=== PATIENT | male | born 1930 | race Caucasian/White ===

== ENCOUNTER 2017-11-27 13:43 | Inpatient (IN) | payer OTHER ==
[2017-11-27 13:54] VITALS: BP 115/59; PULSE 104; TEMP 97.9; BMI 21.9
[2017-11-27] MEDS ORDERED: methylPREDNISolone NA SUCC 125 MG/2 ML VIAL IVPUSH ONE (14:21)
--- NOTE | 2017-11-27 14:27 | PDOC ---
History of Present Illness - General History Source: Patient - History of Present Illness Associated Symptoms: reports: cough, shortness of breath. denies: chest pain/ soreness <Mis AshbyBaileyKaty - Last Filed: 11/27/17 16:15> <Jackelyn Boucher - Last Filed: 11/27/17 19:15> - General Chief Complaint: Shortness of Breath Stated Complaint: SOB Time Seen by Provider: 11/27/17 14:14 Past History - Past Medical History Asthma: Yes Cancer: Yes COPD: Yes Diabetes: Yes - Suicide/Smoking/Psychosocial Hx Smoking History: Current every day smoker Have you smoked in the past 12 months: Yes Number of Cigarettes Smoked Daily: 30 Information on smoking cessation initiated: No Hx Alcohol Use: No Drug/Substance Use Hx: No Substance Use Type: None Hx Substance Use Treatment: No <Mis AshbyBaileyKaty - Last Filed: 11/27/17 16:15> <Jackelyn Boucher - Last Filed: 11/27/17 19:15> - Past Medical History Allergies/Adverse Reactions: Allergies Allergy/AdvReac Type Severity Reaction Status Date / Time No Known Allergies Allergy Verified 11/27/17 13:55 Home Medications: Ambulatory Orders Aspirin [Aspirin EC] 81 mg PO DAILY 11/27/17 Diltiazem HCl [Cartia Xt] 120 mg PO DAILY 11/27/17 Montelukast Sodium [Singulair] 10 mg PO DAILY 11/27/17 Tamsulosin HCl 0.4 mg PO DAILY 11/27/17 Review of Systems - Review of Systems Constitutional: No: Chills, Fever Respiratory: Yes: Cough, Shortness of Breath Cardiac (ROS): No: Chest Pain, Lightheadedness, Palpitations, Syncope <Mis AshbyBaileyKaty - Last Filed: 11/27/17 16:15> *Physical Exam - Vital Signs Last Vital Signs Temp Pulse Resp BP Pulse Ox 97.9 F 104 H 24 115/59 97 11/27/17 13:48 11/27/17 13:48 11/27/17 13:48 11/27/17 13:48 11/27/17 13:48 - Physical Exam General Appearance: Yes: Appropriately Dressed. No: Apparent Distress HEENT: positive: Normal Voice Neck: positive: Supple. negative: Lymphadenopathy (R), Lymphadenopathy (L) Respiratory/Chest: positive: Wheezing (diffusely) Cardiovascular: positive: S1, S2, Tachycardia Gastrointestinal/Abdominal: positive: Soft. negative: Tender Extremity: negative: Pedal Edema Integumentary: positive: Dry, Warm Neurologic: positive: Fully Oriented, Alert, Normal Mood/Affect <Debora Ashby - Last Filed: 11/27/17 16:15> - Vital Signs Last Vital Signs Temp Pulse Resp BP Pulse Ox 97.9 F 104 H 24 115/59 97 11/27/17 13:48 11/27/17 13:48 11/27/17 13:48 11/27/17 13:48 11/27/17 13:48 <Jackelyn Boucher - Last Filed: 11/27/17 19:15> ED Treatment Course - LABORATORY CBC & Chemistry Diagram: 11/27/17 14:40 11/27/17 14:40 - RADIOLOGY Radiology Studies Ordered: Category Date Time Status CHEST PA & LAT [RAD] Stat Radiology 11/27/17 14:21 Ordered <Mis AshbyBaileyKaty - Last Filed: 11/27/17 16:15> - LABORATORY CBC & Chemistry Diagram: 11/27/17 14:40 11/27/17 14:40 - ADDITIONAL ORDERS Additional order review: Laboratory Results 11/27/17 11/27/17 11/27/17 14:40 14:40 14:40 Sodium 137 Potassium 4.2 Chloride 100 Carbon Dioxide 32 Anion Gap 5 L BUN 15 Creatinine 0.6 L Creat Clearance w eGFR > 60 Random Glucose 126 H Calcium 8.2 L Total Bilirubin 0.4 AST 16 D ALT 22 Alkaline Phosphatase 124 H Creatine Kinase 150 Creatine Kinase Index 2.8 CK-MB (CK-2) 4.297 H Troponin I < 0.02 B-Natriuretic Peptide 132.01 Total Protein 7.4 Albumin 3.7 11/27/17 14:40 RBC 4.62 MCV 69.0 L MCHC 30.2 L RDW 18.5 H D MPV 7.1 L Neutrophils % 69.6 Lymphocytes % 18.4 D Monocytes % 8.8 Eosinophils % 2.7 D Basophils % 0.5 D - Medications Given in the ED: ED Medications Discontinued Medications Generic Name Dose Route Start Last Admin Trade Name Freq PRN Reason Stop Dose Admin Albuterol/Ipratropium 1 amp 11/27/17 14:30 11/27/17 15:19 Duoneb - NEB 11/27/17 15:16 1 amp Q15M SALVADOR Administration Azithromycin 500 mg 11/27/17 15:42 11/27/17 15:50 Zithromax - PO 11/27/17 15:43 500 mg ONCE ONE Administration Ceftriaxone Sodium 1 mg 11/27/17 16:13 11/27/17 16:30 Rocephin - IVPUSH 11/27/17 16:14 Not Given ONCE ONE Ceftriaxone Sodium 1 gm/ 100 mls @ 200 mls/hr 11/27/17 16:18 11/27/17 16:30 Dextrose IVPB 11/27/17 16:47 200 mls/hr ONCE ONE Administration Methylprednisolone Sodium Succinate 125 mg 11/27/17 14:21 11/27/17 14:59 Solu-Medrol - IVPUSH 11/27/17 14:22 125 mg ONCE ONE Administration <Jackelyn Boucher - Last Filed: 11/27/17 19:15> Medical Decision Making - Medical Decision Making 11/27/17 14:22 87-year-old male, current smoker, bladder cancer, COPD, not on oxygen, known stable lung nodules, hypertension and diabetes, brought in by for worsening shortness of breath. As per , patient has had difficulty breathing for 3 months with possible fatigue. Was seen by his primary doctor > 2 months ago who wanted pt admitted but pt refused at that time. Presents today because shortness of breath worsened 3 days ago and not improving with several pumps at home. Patient complains of cough which is appears chronic and mostly dry, no fever, chills or CP. Possible recent unexplained weight loss per . Patient denies any chest pain See exam COPD flare, less likely ACS, PE or dissection -nebs -pred -cxr -ekg -labs -anticipate admission 11/27/17 14:28 11/27/17 14:29 11/27/17 16:15 Chest x-ray read as left basilar consolidation. Case discussed with Dr. Dhillon , patient's PMD, who is requesting that Dr. Orellana of pulmonary be consulted. Blood cultures and antibiotics in progress. Patient admitted <Debora Ashby - Last Filed: 11/27/17 16:15> *DC/Admit/Observation/Transfer - Discharge Dispostion Admit: Yes <Debora Ashby - Last Filed: 11/27/17 16:15> - Attestations Physician Attestion: I reviewed the case with the mid-level practitioner and agree with the mid- level practitioner's assessment, diagnosis and disposition. <Jackelyn Boucher - Last Filed: 11/27/17 19:15> Diagnosis at time of Disposition: COPD exacerbation Pneumonia Qualifiers: Pneumonia type: due to unspecified organism Laterality: left Lung location: unspecified part of lung Qualified Code(s): J18.9 - Pneumonia, unspecified organism - Discharge Dispostion Condition at time of disposition: Fair
[2017-11-27] MEDS ORDERED: ALBUTEROL SO4 2.5/IPRATROPIUM 0.5 INH SOL 3 ML VIAL.NEB. NEB ONE ×2 (14:47→15:00)
[2017-11-27] MEDS ORDERED: methylPREDNISolone NA SUCC 125 MG/2 ML VIAL ONE (14:47)
[2017-11-27 14:52] LABS: EOS % 2.7 % (0-4.5); HEMOGLOBIN 9.6 GM/dL (11.7-16.9); MCHC 30.2 g/dl (32.0-35.9); PLATELET COUNT 297 K/MM3 (134-434)
[2017-11-27] MEDS: ALBUTEROL SO4 2.5/IPRATROPIUM 0.5 INH SOL 3 ML VIAL.NEB. NEB SCH ×3 (14:59→15:19)
[2017-11-27 15:10] LABS: BASO % 0.5 % (0-2.0); HEMATOCRIT 31.8 % (35.4-49); LYMPH % 18.4 % (8-40); MCH 20.8 pg (25.7-33.7); MEAN PLT VOLUME 7.1 fl (7.5-11.1); MONO % 8.8 % (3.8-10.2); NEUT % 69.6 % (42.8-82.8); RBC 4.62 M/mm3 (4.00-5.60); RDW 18.5 % (11.9-15.9); WHITE BLOOD COUNT 9.3 K/mm3 (4.0-10.0)
[2017-11-27 15:14] LABS: ALBUMIN 3.7 g/dl (3.4-5.0); ALK PHOS 124 U/L (45-117); ANION GAP 5 (8-16); BILIRUBIN,TOTAL 0.4 mg/dL (0.2-1.0); BLOOD UREA NITROGEN 15 mg/dL (7-18); CALCIUM 8.2 mg/dL (8.5-10.1); CHLORIDE 100 mmol/L (98-107); CO2 32 mmol/L (21-32); CREATININE 0.6 mg/dL (0.7-1.3); GLUCOSE,RANDOM 126 mg/dL (74-106); POTASSIUM 4.2 mmol/L (3.5-5.1); SGOT/AST 16 U/L (15-37); SGPT/ALT 22 U/L (12-78); SODIUM 137 mmol/L (136-145); TOT PROT 7.4 g/dl (6.4-8.2)
[2017-11-27] MEDS ORDERED: AZITHROMYCIN 250 MG TABLET PO ONE (15:42)
[2017-11-27] MEDS ORDERED: AZITHROMYCIN 500 MG TABLET ONE (15:48)
[2017-11-27] MEDS ORDERED: CEFTRIAXONE 1 GM in DEXTROSE 5%-WATER - 100 ML IVPB ONE (16:18)
[2017-11-27] MEDS ORDERED: CEFTRIAXONE 1 GM/50 ML BAG ONE (16:25)
[2017-11-27] MEDS ORDERED: methylPREDNISolone NA SUCC 40 MG/1 ML VIAL IVPUSH SCH (21:00)
[2017-11-27] MEDS ORDERED: MONTELUKAST NA 10 MG TABLET PO SCH (22:00)
--- NOTE | 2017-11-27 23:06 | EKG ---
Test Reason : Blood Pressure : / mmHG Vent. Rate : 098 BPM Atrial Rate : 098 BPM P-R Int : 132 ms QRS Dur : 126 ms QT Int : 376 ms P-R-T Axes : 065 080 046 degrees QTc Int : 480 ms NORMAL SINUS RHYTHM RIGHT BUNDLE BRANCH BLOCK CANNOT RULE OUT INFERIOR INFARCT (CITED ON OR BEFORE 15-JAN-2015) ABNORMAL ECG WHEN COMPARED WITH ECG OF 18-JAN-2015 09:13, NO SIGNIFICANT CHANGE WAS FOUND Confirmed by WADE PADILLA MD ([id number]) on 11/27/2017 11:05:50 PM Referred By: Confirmed By:WADE PADILLA MD
[2017-11-28] MEDS ORDERED: INSULIN SLIDING SCALE (NOVOLOG) 1 VIAL SQ SCH (07:00)
[2017-11-28] MEDS ORDERED: ASPIRIN COATED 81 MG TABLET.EC PO SCH (10:00)
[2017-11-28] MEDS ORDERED: TAMSULOSIN HCL 0.4 MG CAP.ER.24H (FP) PO SCH (10:00)
[2017-11-28] MEDS ORDERED: AZITHROMYCIN IVPB 500 MG in DEXTROSE 5%-WATER - 250 ML IVPB SCH (10:00)
[2017-11-28] MEDS ORDERED: CEFTRIAXONE 1 G/50 ML PREMIX 50 ML IVPB SCH (10:00)
[2017-11-28 10:48] LABS: HEMATOCRIT 31.8 % (35.4-49); HEMOGLOBIN 9.7 GM/dL (11.7-16.9); MCH 20.9 pg (25.7-33.7); MCHC 30.4 g/dl (32.0-35.9); MEAN CELL VOLUME 68.8 fl (80-96); PLATELET COUNT 290 K/MM3 (134-434); RBC 4.62 M/mm3 (4.00-5.60); RDW 18.2 % (11.9-15.9); WHITE BLOOD COUNT 8.7 K/mm3 (4.0-10.0)
[2017-11-28 11:35] LABS: CHLORIDE 101 mmol/L (98-107); POTASSIUM 4.5 mmol/L (3.5-5.1); SODIUM 138 mmol/L (136-145)
[2017-11-28 12:44] LABS: ANION GAP 9 (8-16); BLOOD UREA NITROGEN 24 mg/dL (7-18); CALCIUM 8.9 mg/dL (8.5-10.1); CO2 28 mmol/L (21-32); CREATININE 0.7 mg/dL (0.7-1.3); GLUCOSE,RANDOM 175 mg/dL (74-106)
[2017-11-29 08:07] LABS: SERUM IRON SATURATION 3 % (15-55); TOTAL IRON BINDING CAPACITY 501 ug/dL (250-450); UIBC 484 ug/dL (111-343)
== END 2017-11-27 20:30 | disposition left against medical advice (07) | DRG 190 ==
LOC: JER 13:43 → JERBED 16:14
PROVIDERS: ADMIT Specialist; ATTEND Specialist
DX: J44.0 Chronic obstructive pulmonary disease with (acute) lower respiratory infection (principal); J18.8 Other pneumonia, unspecified organism; E11.9 Type 2 diabetes mellitus without complications; J44.1 Chronic obstructive pulmonary disease with (acute) exacerbation; F17.200 Nicotine dependence, unspecified, uncomplicated
CPT/HCPCS: 36415; 71045-TC-FY; 80048; 80053; 82550; 82553; 82607; 82746; 83540; 83550; 83880; 84439; 84443; 84484; 85025; 85027; 87040; 93005; 93010; 99282-25

== ENCOUNTER 2017-11-28 08:42 | Inpatient (IN) | payer OTHER ==
--- NOTE | 2017-11-28 09:21 | PDOC ---
History of Present Illness - General History Source: Patient Exam Limitations: No Limitations - History of Present Illness Initial Comments: 11/28/17 10:34 The patient is a 87-year-old male with a significant past medical history of COPD (not on home O2), HTN, DM, asthma, bladder CA, heavy tobacco use, and a history of respiratory arrest, and presents to the emergency department with shortness of breath for 6-7 months. Patient was seen in this ED yesterday for the same complaint and was planned for admission. However, the patient reports he walked out AMA and did not stay in the hospital. Patient states his shortness of breath has worsened over the last 2 months. He states he cannot walk very far without being short of breath. The patient denies chest pain, leg swelling, headache and dizziness. The patient denies fever, chills, nausea, vomit, diarrhea and constipation. The patient denies dysuria, frequency, urgency and hematuria. Allergies: NKDA Past Surgical History: stomach ulcer surgery Social History: Current everyday smoker, no other toxic habits reported PCP: Dr. Junior Chief Contract Officer: Dr. Rothman <Kathy Krishnan - Last Filed: 11/28/17 10:34> <Diann Ventura - Last Filed: 11/28/17 14:05> - General Chief Complaint: Shortness of Breath Stated Complaint: REVISIT, PAIN Time Seen by Provider: 11/28/17 09:21 Past History <Kathy Krishnan - Last Filed: 11/28/17 10:34> - Past Medical History Asthma: Yes Cancer: Yes COPD: Yes (EMPHYSEMA) Diabetes: No (LOW BL.SUGAR) - Surgical History Abdominal Surgery: Yes (STOMACH ULCER) - Suicide/Smoking/Psychosocial Hx Smoking History: Current every day smoker Have you smoked in the past 12 months: Yes Number of Cigarettes Smoked Daily: 30 Information on smoking cessation initiated: Yes 'Breaking Loose' booklet given: 11/28/17 Hx Alcohol Use: No Drug/Substance Use Hx: No Substance Use Type: None Hx Substance Use Treatment: No <Diann Ventura - Last Filed: 11/28/17 14:05> - Past Medical History Allergies/Adverse Reactions: Allergies Allergy/AdvReac Type Severity Reaction Status Date / Time No Known Allergies Allergy Verified 11/28/17 08:44 Home Medications: Ambulatory Orders Aspirin [Aspirin EC] 81 mg PO DAILY 11/27/17 Diltiazem HCl [Cartia Xt] 120 mg PO DAILY 11/27/17 Montelukast Sodium [Singulair] 10 mg PO DAILY 11/27/17 Tamsulosin HCl 0.4 mg PO DAILY 11/27/17 Review of Systems - Review of Systems Able to Perform ROS?: Yes Comments:: 11/28/17 10:34 GENERAL/CONSTITUTIONAL: No: fever, chills, weakness, loss of appetite. HEAD, EYES, EARS, NOSE AND THROAT: No: change in vision, ear pain, discharge, sore throat, throat swelling. CARDIOVASCULAR: No: chest pain, lightheadedness, palpitations, syncope RESPIRATORY: (+) Shortness of breath. No: cough, wheezing, hemoptysis, stridor. GASTROINTESTINAL: No: nausea, vomiting, abdominal cramping, diarrhea, rectal bleeding, constipation. GENITOURINARY: No: dysuria, hematuria, frequency, urgency, flank pain. MUSCULOSKELETAL: No: back pain, neck pain, joint pain, muscle swelling or pain SKIN: No: lesions, pallor, rash or easy bruising. NEUROLOGIC: No: headache, vertigo, paresthesias, weakness ENDOCRINE: No: unexplained weight gain or loss HEMATOLOGIC/LYMPHATIC: No: anemia, easy bleeding, swelling nodes <Krishnan,Kathy - Last Filed: 11/28/17 10:34> *Physical Exam - Vital Signs Last Vital Signs Temp Pulse Resp BP Pulse Ox 97.7 F 113 H 22 122/63 96 11/28/17 08:44 11/28/17 08:44 11/28/17 08:44 11/28/17 08:44 11/28/17 08:44 - Physical Exam Comments: 11/28/17 10:34 GENERAL: The patient is in no acute distress. HEAD: Normal with no signs of trauma. EYES: PERRLA, EOMI, sclera anicteric, conjunctiva clear. ENT: Ears normal, nares patent, oropharynx clear without exudates. Moist mucous membranes. NECK: Normal range of motion, supple without lymphadenopathy, JVD, or masses. LUNGS: (+) Expiratory and inspiratory wheezes throughout. No crackles. HEART:Regular rate and rhythm, normal S1 and S2 without murmur, rub or gallop. ABDOMEN: Soft, nontender, normoactive bowel sounds. No guarding, no rebound. EXTREMITIES: Normal range of motion, no LE edema. No clubbing or cyanosis. No erythema, or tenderness. NEUROLOGICAL: Cranial nerves II through XII grossly intact. Normal speech. No focal neurological deficits. MUSCULOSKELETAL: Back nontender to palpation, no CVA tenderness SKIN: Warm, Dry, normal turgor, no rashes or lesions noted. <Kathy Krishnan - Last Filed: 11/28/17 10:34> - Vital Signs Last Vital Signs Temp Pulse Resp BP Pulse Ox 97.7 F 113 H 22 122/63 96 11/28/17 08:44 11/28/17 08:44 11/28/17 08:44 11/28/17 08:44 11/28/17 08:44 <Diann Ventura - Last Filed: 11/28/17 14:05> ED Treatment Course - LABORATORY CBC & Chemistry Diagram: 11/28/17 10:19 11/28/17 10:19 - ADDITIONAL ORDERS Additional order review: Laboratory Results 11/28/17 09:55 VBG pH 7.38 POC VBG pCO2 46.7 POC VBG pO2 37.1 Mixed VBG HCO3 26.8 H <Kathy Krishnan - Last Filed: 11/28/17 10:34> - LABORATORY CBC & Chemistry Diagram: 11/28/17 10:19 11/28/17 10:19 <Diann Ventura - Last Filed: 11/28/17 14:05> Medical Decision Making - Medical Decision Making 11/28/17 10:22 This is an 87-year-old male with a history of hypertension, severe COPD, continued tobacco use who was seen in the emergency department yesterday for shortness of breath. This patient was admitted by his primary care physician. This patient ultimately left AGAINST MEDICAL ADVICE. Emergency Department today with a complaint of shortness of breath. No fevers at home. Patient states he is dyspneic on exertion. He denies chest pain. He has noted a cough Patient's x-ray from yesterday demonstrates left lower lobe pneumonia. Examination currently demonstrates inspiratory and expiratory wheezing, consistent with COPD exacerbation 11/28/17 10:23 Patient seen in the emergency department by Dr. Vivek Junior Will admit to service. Clinical impression: pneumonia, initial presentation COPD exacerbation, initial presentation 11/28/17 14:05 EKG: Sinus tachycardia, rate of 113 bpm, right axis deviation, right bundle branch block <Diann Ventura - Last Filed: 11/28/17 14:05> *DC/Admit/Observation/Transfer - Attestations Scribe Attestion: 11/28/17 10:35 Documentation prepared by Kathy Krishnan, acting as medical anthropologist for Diann Ventura MD/DO. <Kathy Krishnan - Last Filed: 11/28/17 10:34> - Discharge Dispostion Admit: Yes <Diann Ventura - Last Filed: 11/28/17 14:05> Diagnosis at time of Disposition: COPD exacerbation Pneumonia Qualifiers: Pneumonia type: due to unspecified organism Laterality: left Lung location: lower lobe of lung Qualified Code(s): J18.1 - Lobar pneumonia, unspecified organism - Discharge Dispostion Condition at time of disposition: Stable
[2017-11-28 10:26] LABS: BASO % 0.1 % (0-2.0); HEMATOCRIT 31.6 % (35.4-49); HEMOGLOBIN 9.6 GM/dL (11.7-16.9); LYMPH % 10.4 % (8-40); MCH 20.8 pg (25.7-33.7); MCHC 30.3 g/dl (32.0-35.9); MEAN CELL VOLUME 68.8 fl (80-96); MEAN PLT VOLUME 7.1 fl (7.5-11.1); MONO % 5.4 % (3.8-10.2); NEUT % 84.1 % (42.8-82.8); PLATELET COUNT 289 K/MM3 (134-434); RBC 4.59 M/mm3 (4.00-5.60); RDW 18.4 % (11.9-15.9); WHITE BLOOD COUNT 7.9 K/mm3 (4.0-10.0)
[2017-11-28 10:28] LABS: VENOUS PC02 46.7 mmHg (38-52); VENOUS PH 7.38 (7.32-7.42); VENOUS PO2 37.1 mmHg (28-48)
[2017-11-28 11:02] LABS: INR 1.05 (0.82-1.09); PROTHROMBIN TIME (PATIENT) 11.9 SEC (9.98-11.88)
[2017-11-28 11:05] LABS: ACTIVATED PTT 29.5 SECONDS (26.9-34.4)
[2017-11-28 11:17] VITALS: BMI 20.3
[2017-11-28 11:31] LABS: ALBUMIN 3.5 g/dl (3.4-5.0); ANION GAP 8 (8-16); BLOOD UREA NITROGEN 24 mg/dL (7-18); CALCIUM 8.8 mg/dL (8.5-10.1); CHLORIDE 101 mmol/L (98-107); CO2 29 mmol/L (21-32); CREATININE 0.8 mg/dL (0.7-1.3); GLUCOSE,RANDOM 177 mg/dL (74-106); POTASSIUM 4.6 mmol/L (3.5-5.1); SGOT/AST 12 U/L (15-37); SGPT/ALT 20 U/L (12-78); SODIUM 138 mmol/L (136-145)
[2017-11-28 11:35] LABS: ALK PHOS 112 U/L (45-117); BILIRUBIN,TOTAL 0.4 mg/dL (0.2-1.0); TOT PROT 7.2 g/dl (6.4-8.2)
[2017-11-28 11:36] LABS: URINE APPEARANCE CLEAR; URINE COLOR RED
[2017-11-28 11:37] LABS: URINE BILIRUBIN NEGATIVE (NEGATIVE); URINE BLOOD NEGATIVE (NEGATIVE); URINE GLUCOSE (UA) 2+ (NEGATIVE); URINE KETONE NEGATIVE (NEGATIVE); URINE LEUK ESTERASE NEGATIVE (NEGATIVE); URINE NITRITE NEGATIVE (NEGATIVE); URINE PROTEIN NEGATIVE (NEGATIVE)
--- NOTE | 2017-11-28 11:43 | CON.PULM ---
Consult Consult Specialty:: Pulm Referred by:: Dr. Junior Reason for Consultation:: COPD exacerbation, weight loss - History of Present Illness Chief Complaint: SOB History of Present Illness: 87 year old M with pmh of bladder CA, COPD (not on home O2), lung nodules (last CT 08/2017), HTN, DM, and current everyday smoker (2 ppd x 60 yrs) presented with worsening SOB, difficulty breathing x 3 months. Pt saw PCP 2 months ago who recommended admission, but patient refused. Patient came to the ED yesterday with 3 day hx of sob without any improvement and cough with yellow sputum x 2 months. Patient endorses 60 lb weight loss over since last year (185 to 120). Patient left AMA and returned today. Patient denies fever, chills, chest pain, wheezing, hemoptysis, leg swelling. - History Source History Provided By: Patient Limitations to Obtaining History: No Limitations - Past Medical History Cardio/Vascular: Yes: HTN, Other (ASHD/SMOKER) Pulmonary: Yes: COPD Renal/: Yes: Cancer (bladder cancer- transitional cell), Other (PAST PROSTATE CA) Endocrine: Yes: Diabetes Mellitus - Alcohol/Substance Use Hx Alcohol Use: No - Smoking History Smoking history: Current every day smoker Have you smoked in the past 12 months: Yes Aproximately how many cigarettes per day: 30 (2 ppd) <Zay Reed - Last Filed: 11/28/17 15:03> Home Medications <Zay Reed - Last Filed: 11/28/17 15:03> <Marito Weldon - Last Filed: 11/28/17 15:16> - Allergies Allergies/Adverse Reactions: Allergies Allergy/AdvReac Type Severity Reaction Status Date / Time No Known Allergies Allergy Verified 11/28/17 08:44 - Home Medications Home Medications: Ambulatory Orders Aspirin [Aspirin EC] 81 mg PO DAILY 11/27/17 Diltiazem HCl [Cartia Xt] 120 mg PO DAILY 11/27/17 Montelukast Sodium [Singulair] 10 mg PO DAILY 11/27/17 Tamsulosin HCl 0.4 mg PO DAILY 11/27/17 Review of Systems - Review of Systems Constitutional: reports: No Symptoms Eyes: reports: No Symptoms HENT: reports: No Symptoms Cardiovascular: reports: No Symptoms Respiratory: reports: Cough (with yellow sputum), SOB. denies: Hemoptysis, Wheezing Gastrointestinal: reports: No Symptoms Musculoskeletal: reports: No Symptoms Neurological: reports: No Symptoms Psychiatric: reports: No Symptoms <Zay Reed - Last Filed: 11/28/17 15:03> Physical Exam Vital Sings: Vital Signs Temperature 97.7 F 11/28/17 08:44 Pulse Rate 103 H 11/28/17 10:30 Respiratory Rate 18 11/28/17 10:30 Blood Pressure 120/64 11/28/17 10:30 O2 Sat by Pulse Oximetry (%) 100 11/28/17 10:30 Constitutional: Yes: No Distress, Calm, Thin Eyes: Yes: WNL, Conjunctiva Clear, EOM Intact HENT: Yes: WNL, Atraumatic, Normocephalic Neck: Yes: Supple, Trachea Midline, Lymphadenopathy (Right cervical) Cardiovascular: Yes: WNL, Tachycardia, S1, S2 Respiratory: Yes: Cough, Poor Air Entry, SOB, Wheezes (Diffuse bilaterally) ...Breath Sounds: LIANE Wheezes, LIANE Diminished, LLL Wheezes, LLL Diminished, RUL Wheezes, RUL Diminished, RML Wheezes, RML Diminished Gastrointestinal: Yes: WNL, Normal Bowel Sounds, Soft. No: Splenomegaly, Tenderness Edema: No Neurological: Yes: WNL, Alert, Oriented Labs: CBC, [facility] 11/28/17 10:19 11/28/17 10:19 <Zay Reed - Last Filed: 11/28/17 15:03> Vital Sings: Vital Signs Temperature 97.7 F 11/28/17 08:44 Pulse Rate 103 H 11/28/17 10:30 Respiratory Rate 18 11/28/17 10:30 Blood Pressure 120/64 11/28/17 10:30 O2 Sat by Pulse Oximetry (%) 100 11/28/17 10:30 Labs: CBC, [facility] 11/28/17 10:19 11/28/17 10:19 <Marito Weldon - Last Filed: 11/28/17 15:16> Assessment/Plan 87 year old M with pmh of bladder CA, COPD (not on home O2), lung nodules (last CT 08/2017), HTN, DM, and current everyday smoker (2 ppd x 60 yrs) presented with worsening SOB, difficulty breathing x 3 months. #COPD exacerbation with L basilar consolidation/atelectasis -IV steroids [Solumederol 40 mg q6h] -Antibiotics [Ceftriaxone/Azithromycin], recommend low threshold to stop abx -Bronchodilators [Recommend albuterol q4 prn and duonebs edgar tid] -O2 as needed -Sputum CX <Zay Reed - Last Filed: 11/28/17 15:03> IMP: AE of COPD Acute on chronic bronchitis Multiple Pulmonary nodules: the largest being 6 mm in the LIANE that has remained essentially unchanged since February 2016 IV Medrol BD TX O2 as needed to maintain saturation VTE prophylaxis No indication for CT as the most recent was August 2016 Low threshold to stop all ABX (Zmax for now) as does not appear to be PNA or bacterial infection Work up fpr significant weight loss suggested Vaccination Will follow Thank you. Dr Weldon <Marito Weldon - Last Filed: 11/28/17 15:16>
[2017-11-28] MEDS ORDERED: CEFTRIAXONE 1 GM/50 ML BAG ONE (12:40)
[2017-11-28] MEDS ORDERED: methylPREDNISolone NA SUCC 40 MG/1 ML VIAL ONE (12:41)
[2017-11-28] MEDS: methylPREDNISolone NA SUCC 40 MG/1 ML VIAL IVPUSH SCH ×3 (12:45→21:35)
[2017-11-28] MEDS: CEFTRIAXONE 1 G/50 ML PREMIX 50 ML IVPB SCH (12:48)
--- NOTE | 2017-11-28 14:07 | EKG ---
Test Reason : Blood Pressure : / mmHG Vent. Rate : 113 BPM Atrial Rate : 113 BPM P-R Int : 134 ms QRS Dur : 122 ms QT Int : 366 ms P-R-T Axes : 088 086 069 degrees QTc Int : 502 ms SINUS TACHYCARDIA POSSIBLE LEFT ATRIAL ENLARGEMENT RIGHT BUNDLE BRANCH BLOCK CANNOT RULE OUT INFERIOR INFARCT (CITED ON OR BEFORE 15-JAN-2015) ABNORMAL ECG WHEN COMPARED WITH ECG OF 27-NOV-2017 15:27, NO SIGNIFICANT CHANGE WAS FOUND Confirmed by MD Ju, Ken ([id number]) on 11/28/2017 2:07:35 PM Referred By: Confirmed By:Ken Dodd MD
[2017-11-28] MEDS: AZITHROMYCIN IVPB 500 MG in DEXTROSE 5%-WATER - 250 ML IVPB SCH (14:21)
--- NOTE | 2017-11-28 14:28 | HP ---
Admitting History and Physical - Primary Care Physician PCP: Vivek Junior - Admission Chief Complaint: SOB History of Present Illness: Pt with Hx/o COPD, current smoker, with LEARY for couple of months (seen in the office, with his son at bed side, referred to ER but pt refused) now came to ER for worsening of his condition, walking only few steps before gasping for air. Pt came to ER yesterday, was admitted for PNA and acute COPD exacerbation, but pt left AMA last night. History Source: Patient Limitations to Obtaining History: No Limitations - Past Medical History Cardiovascular: Yes: CAD, HTN Pulmonary: Yes: COPD Renal/: Yes: Cancer (bladder cancer- transitional cell), Other (PAST PROSTATE CA) Endocrine: Yes: Diabetes Mellitus (diet controlled) - Smoking History Smoking history: Current every day smoker (he started smoking before 17 years of age; he smoked for years over 2 packs) Have you smoked in the past 12 months: Yes Aproximately how many cigarettes per day: 30 - Alcohol/Substance Use Hx Alcohol Use: No Home Medications - Allergies Allergies/Adverse Reactions: Allergies Allergy/AdvReac Type Severity Reaction Status Date / Time No Known Allergies Allergy Verified 11/28/17 08:44 - Home Medications Home Medications: Ambulatory Orders Aspirin [Aspirin EC] 81 mg PO DAILY 11/27/17 Diltiazem HCl [Cartia Xt] 120 mg PO DAILY 11/27/17 Montelukast Sodium [Singulair] 10 mg PO DAILY 11/27/17 Tamsulosin HCl 0.4 mg PO DAILY 11/27/17 Review of Systems - Review of Systems Constitutional: denies: Chills, Fever, Night Sweats Eyes: denies: Double Vision, Eye Pain, Recent Change in Vision HENT: denies: Difficult Swallowing, Ear Discharge, Throat Pain Neck: denies: Pain on Movement, Tenderness Cardiovascular: denies: Chest Pain, Edema, Palpitations Respiratory: reports: Cough, SOB on Exertion, Wheezing Gastrointestinal: denies: Abdominal Pain, Constipation, Nausea Genitourinary: reports: Frequency. denies: Burning, Discharge Musculoskeletal: denies: Back Pain, Joint Swelling Integumentary: denies: Eczema, Pruritis, Rash Neurological: denies: Change in LOC, Change in Speech, Numbness Endocrine: denies: Excessive Sweating, Intolerance to Cold Hematology/Lymphatic: denies: Easily Bruised, Excessive Bleeding Psychiatric: denies: Anxiety, Depression Physical Examination Vital Signs: Vital Signs Temperature 97.7 F 11/28/17 08:44 Pulse Rate 103 H 11/28/17 10:30 Respiratory Rate 18 11/28/17 10:30 Blood Pressure 120/64 11/28/17 10:30 O2 Sat by Pulse Oximetry (%) 100 11/28/17 10:30 Constitutional: Yes: No Distress, Calm Eyes: Yes: Conjunctiva Clear, EOM Intact HENT: Yes: Normocephalic. No: Nasal Congestion Neck: Yes: Trachea Midline. No: Lymphadenopathy, Tenderness Cardiovascular: Yes: Regular Rate and Rhythm, S1, S2 Respiratory: Yes: Regular, Rhonchi Gastrointestinal: Yes: Normal Bowel Sounds, Soft. No: Tenderness Renal/: No: CVA Tenderness - Left, CVA Tenderness - Right Musculoskeletal: No: Joint Stiffness, Joint Swelling Extremities: Yes: Cold, Cool Edema: No Integumentary: No: Bruising, Rash Neurological: Yes: Alert, Oriented, Other (symmetric sensorty and motor examinationin UE/ LE/ face) Psychiatric: Yes: Alert, Oriented. No: Agitated Labs: CBC, BMP 11/28/17 10:19 11/28/17 10:19 Imaging - Results Chest X-ray: Report Reviewed Problem List - Problems (1) Pneumonia Code(s): J18.9 - PNEUMONIA, UNSPECIFIED ORGANISM Qualifiers: Pneumonia type: due to unspecified organism Laterality: left Lung location: lower lobe of lung Qualified Code(s): J18.1 - Lobar pneumonia, unspecified organism (2) Acute exacerbation of chronic obstructive pulmonary disease (COPD) Code(s): J44.1 - CHRONIC OBSTRUCTIVE PULMONARY DISEASE W (ACUTE) EXACERBATION (3) DM2 (diabetes mellitus, type 2) Code(s): E11.9 - TYPE 2 DIABETES MELLITUS WITHOUT COMPLICATIONS (4) HTN (hypertension) Code(s): I10 - ESSENTIAL (PRIMARY) HYPERTENSION Assessment/Plan IV abtx IV steroids Pulmonary consult AM labs
[2017-11-28] MEDS ORDERED: ALBUTEROL SO4 2.5/IPRATROPIUM 0.5 INH SOL 3 ML VIAL.NEB. NEB PRN (14:34)
[2017-11-28] MEDS ORDERED: ACETAMINOPHEN 325 MG TABLET (FP) PO PRN (14:35)
[2017-11-28] MEDS ORDERED: ALBUTEROL SO4 0.083% IH SOL 2.5 MG/3 ML VIAL.NEB. NEB PRN (15:03)
[2017-11-28] MEDS ORDERED: INSULIN (NOVOLOG) ASPART 100 UNITS/ML 10ML VIAL ONE (16:32)
[2017-11-28] MEDS: INSULIN SLIDING SCALE (NOVOLOG) 1 VIAL SQ SCH (16:38)
[2017-11-28] MEDS: NICOTINE 21 MG/24 HOURS TOPICAL PATCH TD SCH (18:45)
[2017-11-28] MEDS: ALBUTEROL SO4 2.5/IPRATROPIUM 0.5 INH SOL 3 ML VIAL.NEB. NEB SCH (19:50)
[2017-11-28] MEDS: NICOTINE POLACRILEX 4 MG GUM BUC PRN ×2 (19:56→22:00)
[2017-11-28] MEDS: MONTELUKAST NA 10 MG TABLET PO SCH (21:36)
[2017-11-29] MEDS ORDERED: PT OWN MED DRAWER 7, Y5N ONE ×4 (01:50→22:55)
[2017-11-29] MEDS: NICOTINE POLACRILEX 4 MG GUM BUC PRN ×3 (01:51→13:02)
[2017-11-29] MEDS: methylPREDNISolone NA SUCC 40 MG/1 ML VIAL IVPUSH SCH ×4 (03:02→21:31)
[2017-11-29] MEDS: INSULIN SLIDING SCALE (NOVOLOG) 1 VIAL SQ SCH ×2 (06:56→17:41)
[2017-11-29] MEDS ORDERED: INSULIN (NOVOLOG) ASPART 100 UNITS/ML 10ML VIAL ONE (07:07)
[2017-11-29 07:32] LABS: HEMATOCRIT 28.4 % (35.4-49); HEMOGLOBIN 8.7 GM/dL (11.7-16.9); MCH 20.7 pg (25.7-33.7); MCHC 30.5 g/dl (32.0-35.9); MEAN CELL VOLUME 67.9 fl (80-96); MEAN PLT VOLUME 7.2 fl (7.5-11.1); PLATELET COUNT 274 K/MM3 (134-434); RBC 4.19 M/mm3 (4.00-5.60); RDW 17.8 % (11.9-15.9); WHITE BLOOD COUNT 10.8 K/mm3 (4.0-10.0)
[2017-11-29] MEDS: ALBUTEROL SO4 2.5/IPRATROPIUM 0.5 INH SOL 3 ML VIAL.NEB. NEB SCH ×3 (07:40→20:47)
[2017-11-29 07:56] LABS: ANION GAP 9 (8-16); BLOOD UREA NITROGEN 28 mg/dL (7-18); CALCIUM 8.7 mg/dL (8.5-10.1); CHLORIDE 100 mmol/L (98-107); CO2 30 mmol/L (21-32); GLUCOSE,RANDOM 213 mg/dL (74-106); POTASSIUM 4.3 mmol/L (3.5-5.1); SODIUM 139 mmol/L (136-145)
[2017-11-29 09:28] LABS: CREATININE 0.7 mg/dL (0.7-1.3)
[2017-11-29] MEDS: NICOTINE 21 MG/24 HOURS TOPICAL PATCH TD SCH (09:58)
[2017-11-29] MEDS: CEFTRIAXONE 1 G/50 ML PREMIX 50 ML IVPB SCH (09:59)
[2017-11-29] MEDS: TAMSULOSIN HCL 0.4 MG CAP.ER.24H (FP) PO SCH (10:00)
[2017-11-29] MEDS: ASPIRIN COATED 81 MG TABLET.EC PO SCH (10:00)
[2017-11-29] MEDS: AZITHROMYCIN IVPB 500 MG in DEXTROSE 5%-WATER - 250 ML IVPB SCH (11:28)
--- NOTE | 2017-11-29 11:28 | PN ---
Progress Note, Physician Chief Complaint: in bed awake alert NAD VSS afebrile still some cough and SOB - Current Medication List Current Medications: Active Medications Acetaminophen (Tylenol -) 650 mg PO Q6H PRN PRN Reason: PAIN LEVEL 4 - 6 Albuterol Sulfate (Ventolin 0.083% Nebulizer Soln -) 1 amp NEB Q4H PRN PRN Reason: SHORT OF BREATH/WHEEZING Last Admin: 11/29/17 05:20 Dose: 1 amp Albuterol/Ipratropium (Duoneb -) 1 amp NEB RTID [facility] Last Admin: 11/29/17 07:40 Dose: 1 amp Aspirin (Ecotrin -) 81 mg PO DAILY [facility] Last Admin: 11/29/17 10:00 Dose: 81 mg Diltiazem HCl (Cardizem Cd -) 120 mg PO DAILY [facility] Last Admin: 11/29/17 10:00 Dose: 120 mg Azithromycin 500 mg/ Dextrose 250 mls @ 250 mls/hr IVPB DAILY [facility] Last Admin: 11/28/17 14:21 Dose: 250 mls/hr CEFTRIAXONE 1 G/50 ML PREMIX (Ceftriaxone 1 Gm-D5w Bag) 50 mls @ 100 mls/hr IVPB DAILY [facility] Last Admin: 11/29/17 09:59 Dose: 100 mls/hr Insulin Aspart (Novolog Vial Sliding Scale -) 1 vial SQ BID@0700,1630 [facility] PRN Reason: Protocol Last Admin: 11/29/17 06:56 Dose: 4 units Methylprednisolone Sodium Succinate (Solu-Medrol -) 40 mg IVPUSH Q6H-IV [facility] Last Admin: 11/29/17 10:00 Dose: 40 mg Montelukast Sodium (Singulair -) 10 mg PO HS [facility] Last Admin: 11/28/17 21:36 Dose: 10 mg Nicotine (Nicoderm Patch -) 21 mg TD DAILY [facility] Last Admin: 11/29/17 09:58 Dose: 21 mg Nicotine Polacrilex (Nicorette Gum -) 4 mg BUC Q2H PRN PRN Reason: NICOTINE REPLACEMENT RX Last Admin: 11/29/17 05:20 Dose: 4 mg Tamsulosin HCl (Flomax -) 0.4 mg PO DAILY@0830 [facility] Last Admin: 11/29/17 10:00 Dose: 0.4 mg - Objective Vital Signs: Vital Signs Temperature 98.7 F 02/14/18 09:20 Pulse Rate 104 H 11/29/17 09:20 Respiratory Rate 18 11/29/17 09:20 Blood Pressure 111/57 11/29/17 09:20 O2 Sat by Pulse Oximetry (%) 100 11/28/17 21:00 Constitutional: Yes: No Distress, Calm Eyes: Yes: Conjunctiva Clear HENT: Yes: Atraumatic Neck: Yes: Supple Cardiovascular: Yes: Regular Rate and Rhythm Respiratory: Yes: Cough, SOB Gastrointestinal: Yes: Soft. No: Distention, Tenderness Genitourinary: No: CVA Tenderness - Left, CVA Tenderness - Right, Hematuria Musculoskeletal: No: Joint Stiffness, Joint Swelling Extremities: No: Cold, Cool, Cyanosis Edema: No Integumentary: No: Rash, Skin Tear Neurological: Yes: WNL, Alert, Oriented ...Motor Strength: WNL Psychiatric: Yes: WNL, Alert, Oriented. No: Agitated, Suicidal Ideation Labs: CBC, BMP 11/29/17 06:00 11/29/17 06:00 INR, PTT INR 1.05 (0.82-1.09) 11/28/17 10:19 - ....Imaging Other: Report Reviewed Assessment/Plan 87 year old M with pmh of bladder CA, COPD (not on home O2), lung nodules (last CT 08/2017), HTN, DM, and current everyday smoker (2 ppd x 60 yrs) presented with worsening SOB, difficulty breathing x 3 months worse for the last few days without any improvement and cough with yellow sputum x 2 months. Patient endorses 60 lb weight loss over since last year admitted with PNA and acute COPD exac IV steroids, IV antibiotics, nebs, pulm eval weight loss, anemia: needs further w/u r/o malignancy strongly advised stop smoking falls, DVT, aspiration decubs PFX d/w pt and staff
--- NOTE | 2017-11-29 15:21 | PN ---
Progress Note, Physician Chief Complaint: DYSPNEA History of Present Illness: REVIEWED - Current Medication List Current Medications: Active Medications Acetaminophen (Tylenol -) 650 mg PO Q6H PRN PRN Reason: PAIN LEVEL 4 - 6 Albuterol Sulfate (Ventolin 0.083% Nebulizer Soln -) 1 amp NEB Q4H PRN PRN Reason: SHORT OF BREATH/WHEEZING Last Admin: 11/29/17 05:20 Dose: 1 amp Albuterol/Ipratropium (Duoneb -) 1 amp NEB RTID [facility] Last Admin: 11/29/17 07:40 Dose: 1 amp Aspirin (Ecotrin -) 81 mg PO DAILY [facility] Last Admin: 11/29/17 10:00 Dose: 81 mg Diltiazem HCl (Cardizem Cd -) 120 mg PO DAILY [facility] Last Admin: 11/29/17 10:00 Dose: 120 mg Azithromycin 500 mg/ Dextrose 250 mls @ 250 mls/hr IVPB DAILY [facility] Last Admin: 11/29/17 11:28 Dose: 250 mls/hr CEFTRIAXONE 1 G/50 ML PREMIX (Ceftriaxone 1 Gm-D5w Bag) 50 mls @ 100 mls/hr IVPB DAILY [facility] Last Admin: 11/29/17 09:59 Dose: 100 mls/hr Insulin Aspart (Novolog Vial Sliding Scale -) 1 vial SQ BID@0700,1630 [facility] PRN Reason: Protocol Last Admin: 11/29/17 06:56 Dose: 4 units Methylprednisolone Sodium Succinate (Solu-Medrol -) 40 mg IVPUSH Q6H-IV [facility] Last Admin: 11/29/17 10:00 Dose: 40 mg Montelukast Sodium (Singulair -) 10 mg PO HS [facility] Last Admin: 11/28/17 21:36 Dose: 10 mg Nicotine (Nicoderm Patch -) 21 mg TD DAILY [facility] Last Admin: 11/29/17 09:58 Dose: 21 mg Nicotine Polacrilex (Nicorette Gum -) 4 mg BUC Q2H PRN PRN Reason: NICOTINE REPLACEMENT RX Last Admin: 11/29/17 13:02 Dose: 4 mg Tamsulosin HCl (Flomax -) 0.4 mg PO DAILY@0830 [facility] Last Admin: 11/29/17 10:00 Dose: 0.4 mg - Objective Vital Signs: Vital Signs Temperature 98.2 F 11/29/17 14:56 Pulse Rate 97 H 11/29/17 14:56 Respiratory Rate 18 11/29/17 14:56 Blood Pressure 123/67 11/29/17 14:56 O2 Sat by Pulse Oximetry (%) 100 11/28/17 21:00 Constitutional: Yes: Calm Eyes: Yes: EOM Intact HENT: Yes: Normocephalic Neck: Yes: Trachea Midline Cardiovascular: Yes: Regular Rate and Rhythm Respiratory: Yes: Diminished, Hyperresonant Gastrointestinal: Yes: Soft Extremities: Yes: WNL Edema: No Neurological: Yes: Alert Labs: CBC, BMP 11/29/17 06:00 11/29/17 06:00 INR, PTT INR 1.05 (0.82-1.09) 11/28/17 10:19 - ....Imaging Chest X-ray: Report Reviewed, Image Reviewed EKG: Report Reviewed Problem List - Problems (1) Acute exacerbation of chronic obstructive pulmonary disease (COPD) Code(s): J44.1 - CHRONIC OBSTRUCTIVE PULMONARY DISEASE W (ACUTE) EXACERBATION (2) COPD exacerbation Code(s): J44.1 - CHRONIC OBSTRUCTIVE PULMONARY DISEASE W (ACUTE) EXACERBATION (3) Pneumonia Code(s): J18.9 - PNEUMONIA, UNSPECIFIED ORGANISM Qualifiers: Pneumonia type: due to unspecified organism Laterality: left Lung location: lower lobe of lung Qualified Code(s): J18.1 - Lobar pneumonia, unspecified organism (4) Anemia Code(s): D64.9 - ANEMIA, UNSPECIFIED (5) HTN (hypertension) Code(s): I10 - ESSENTIAL (PRIMARY) HYPERTENSION Assessment/Plan #COPD exacerbation with L basilar consolidation/atelectasis -IV steroids [Solumederol 40 mg q6h] -Antibiotics [Ceftriaxone/Azithromycin], -Bronchodilators -O2 as needed 6 mm nodule in the LIANE that has remained essentially unchanged VTE prophylaxis Work up fpr significant weight loss suggested Smoking cessation Anaid THORPE MD
--- NOTE | 2017-11-29 18:48 | CONSULT ---
Consult Consult Specialty:: Hematology - Past Medical History Cardio/Vascular: Yes: HTN, Other (ASHD/SMOKER) Pulmonary: Yes: COPD Renal/: Yes: Cancer (bladder cancer- transitional cell), Other (PAST PROSTATE CA) Endocrine: Yes: Diabetes Mellitus - Alcohol/Substance Use Hx Alcohol Use: No - Smoking History Smoking history: Current every day smoker Have you smoked in the past 12 months: Yes Aproximately how many cigarettes per day: 30 Home Medications - Allergies Allergies/Adverse Reactions: Allergies Allergy/AdvReac Type Severity Reaction Status Date / Time No Known Allergies Allergy Verified 11/28/17 08:44 - Home Medications Home Medications: Ambulatory Orders Aspirin [Aspirin EC] 81 mg PO DAILY 11/27/17 Diltiazem HCl [Cartia Xt] 120 mg PO DAILY 11/27/17 Montelukast Sodium [Singulair] 10 mg PO DAILY 11/27/17 Tamsulosin HCl 0.4 mg PO DAILY 11/27/17 Physical Exam Vital Signs: Vital Signs Temperature 98 F 11/29/17 17:13 Pulse Rate 103 H 11/29/17 17:13 Respiratory Rate 20 11/29/17 17:13 Blood Pressure 138/85 11/29/17 17:13 O2 Sat by Pulse Oximetry (%) 100 11/28/17 21:00 Labs: CBC, BMP 11/29/17 06:00 11/29/17 06:00 Assessment/Plan for anemia w/u CT c/a/p given his weight loss and current smoker will send peripheral blood flow if CT negative.
[2017-11-29] MEDS: MONTELUKAST NA 10 MG TABLET PO SCH (21:31)
[2017-11-29] MEDS: NICOTINE POLACRILEX 2 MG GUM BUC PRN (23:02)
[2017-11-30] MEDS: NICOTINE POLACRILEX 2 MG GUM BUC PRN ×3 (01:15→14:40)
[2017-11-30] MEDS: methylPREDNISolone NA SUCC 40 MG/1 ML VIAL IVPUSH SCH ×3 (02:36→22:38)
[2017-11-30] MEDS: INSULIN SLIDING SCALE (NOVOLOG) 1 VIAL SQ SCH ×2 (06:05→18:18)
[2017-11-30] MEDS ORDERED: INSULIN (NOVOLOG) ASPART 100 UNITS/ML 10ML VIAL ONE (07:19)
--- NOTE | 2017-11-30 07:29 | PN ---
Progress Note, Physician Chief Complaint: in bed feels better less SOB less cough; consults appreciated and d/w pt - Current Medication List Current Medications: Active Medications Acetaminophen (Tylenol -) 650 mg PO Q6H PRN PRN Reason: PAIN LEVEL 4 - 6 Albuterol Sulfate (Ventolin 0.083% Nebulizer Soln -) 1 amp NEB Q4H PRN PRN Reason: SHORT OF BREATH/WHEEZING Last Admin: 11/29/17 05:20 Dose: 1 amp Albuterol/Ipratropium (Duoneb -) 1 amp NEB RTID [facility] Last Admin: 11/29/17 20:47 Dose: 1 amp Aspirin (Ecotrin -) 81 mg PO DAILY [facility] Last Admin: 11/29/17 10:00 Dose: 81 mg Diltiazem HCl (Cardizem Cd -) 120 mg PO DAILY [facility] Last Admin: 11/29/17 10:00 Dose: 120 mg Azithromycin 500 mg/ Dextrose 250 mls @ 250 mls/hr IVPB DAILY [facility] Last Admin: 11/29/17 11:28 Dose: 250 mls/hr CEFTRIAXONE 1 G/50 ML PREMIX (Ceftriaxone 1 Gm-D5w Bag) 50 mls @ 100 mls/hr IVPB DAILY [facility] Last Admin: 11/29/17 09:59 Dose: 100 mls/hr Insulin Aspart (Novolog Vial Sliding Scale -) 1 vial SQ BID@0700,1630 [facility] PRN Reason: Protocol Last Admin: 11/30/17 06:05 Dose: 4 units Methylprednisolone Sodium Succinate (Solu-Medrol -) 40 mg IVPUSH Q6H-IV [facility] Last Admin: 11/30/17 02:36 Dose: 40 mg Montelukast Sodium (Singulair -) 10 mg PO HS [facility] Last Admin: 11/29/17 21:31 Dose: 10 mg Nicotine (Nicoderm Patch -) 21 mg TD DAILY [facility] Last Admin: 11/29/17 09:58 Dose: 21 mg Nicotine Polacrilex (Nicorette Gum -) 4 mg BUC Q2H PRN PRN Reason: NICOTINE REPLACEMENT RX Last Admin: 11/30/17 04:20 Dose: 4 mg Tamsulosin HCl (Flomax -) 0.4 mg PO DAILY@0830 [facility] Last Admin: 11/29/17 10:00 Dose: 0.4 mg - Objective Vital Signs: Vital Signs Temperature 98.2 F 11/30/17 06:00 Pulse Rate 97 H 11/30/17 06:00 Respiratory Rate 20 11/30/17 06:00 Blood Pressure 116/56 11/30/17 06:00 O2 Sat by Pulse Oximetry (%) 96 11/29/17 21:00 Constitutional: Yes: No Distress, Calm Eyes: Yes: Conjunctiva Clear HENT: Yes: Atraumatic Neck: Yes: Supple Cardiovascular: Yes: Regular Rate and Rhythm Respiratory: Yes: CTA Bilaterally Gastrointestinal: Yes: Soft. No: Distention, Tenderness Genitourinary: No: CVA Tenderness - Left, CVA Tenderness - Right Musculoskeletal: No: Joint Stiffness, Joint Swelling Extremities: No: Cold, Cool, Cyanosis Edema: No Integumentary: No: Rash, Venous Stasis Changes Neurological: Yes: WNL, Alert, Oriented ...Motor Strength: WNL Psychiatric: Yes: WNL, Alert, Oriented. No: Agitated, Suicidal Ideation Labs: INR, PTT INR 1.05 (0.82-1.09) 11/28/17 10:19 - ....Imaging Other: Report Reviewed Assessment/Plan 87 year old M with pmh of bladder CA, COPD (not on home O2), lung nodules (last CT 08/2017), HTN, DM, and current everyday smoker (2 ppd x >60 yrs) presented with worsening SOB, difficulty breathing x 3 months worse for the last few days without any improvement and cough with yellow sputum x 2 months. Patient endorses 60 lb weight loss over since last year admitted with PNA and acute COPD exac IV steroids, IV antibiotics, nebs, pulm eval weight loss, anemia: needs further w/u r/o malignancy strongly advised stop smoking falls, DVT, aspiration decubs PFX d/w pt and staff
[2017-11-30 07:32] LABS: BASO % 0.1 % (0-2.0); HEMOGLOBIN 8.6 GM/dL (11.7-16.9); LYMPH % 8.6 % (8-40); MCH 20.9 pg (25.7-33.7); MCHC 30.6 g/dl (32.0-35.9); MEAN CELL VOLUME 68.1 fl (80-96); MEAN PLT VOLUME 7.3 fl (7.5-11.1); MONO % 1.8 % (3.8-10.2); NEUT % 89.5 % (42.8-82.8); PLATELET COUNT 236 K/MM3 (134-434); RBC 4.11 M/mm3 (4.00-5.60); RDW 18.4 % (11.9-15.9); WHITE BLOOD COUNT 9.5 K/mm3 (4.0-10.0)
[2017-11-30 08:10] LABS: CHLORIDE 102 mmol/L (98-107); POTASSIUM 4.3 mmol/L (3.5-5.1); SODIUM 138 mmol/L (136-145)
[2017-11-30 08:25] LABS: ANION GAP 8 (8-16); BLOOD UREA NITROGEN 26 mg/dL (7-18); CALCIUM 7.8 mg/dL (8.5-10.1); CO2 28 mmol/L (21-32); CREATININE 0.6 mg/dL (0.7-1.3); GLUCOSE,RANDOM 165 mg/dL (74-106)
[2017-11-30] MEDS: ALBUTEROL SO4 2.5/IPRATROPIUM 0.5 INH SOL 3 ML VIAL.NEB. NEB SCH ×3 (09:05→21:05)
[2017-11-30 09:31] LABS: ERYTHROCYTE SEDIMENTATION RATE 6 mm/hr (0-20)
--- NOTE | 2017-11-30 10:50 | PN ---
Progress Note (short form) - Note Progress Note: No acute events overnight. Congested cough. No CP . Weight loss workup ongoing. Intake & Output 11/27/17 11/28/17 11/29/17 11/30/17 23:59 23:59 23:59 23:59 Intake Total 300 1280 Balance 300 1280 Weight 130 lb Last Vital Signs Temp Pulse Resp BP Pulse Ox 98.2 F 97 H 20 116/56 96 11/30/17 06:00 11/30/17 06:00 11/30/17 06:00 11/30/17 06:00 11/29/17 21:00 Active Medications Acetaminophen (Tylenol -) 650 mg PO Q6H PRN PRN Reason: PAIN LEVEL 4 - 6 Albuterol Sulfate (Ventolin 0.083% Nebulizer Soln -) 1 amp NEB Q4H PRN PRN Reason: SHORT OF BREATH/WHEEZING Last Admin: 11/29/17 05:20 Dose: 1 amp Albuterol/Ipratropium (Duoneb -) 1 amp NEB RTID [facility] Last Admin: 11/30/17 09:05 Dose: 1 amp Aspirin (Ecotrin -) 81 mg PO DAILY [facility] Last Admin: 11/29/17 10:00 Dose: 81 mg Diltiazem HCl (Cardizem Cd -) 120 mg PO DAILY [facility] Last Admin: 11/29/17 10:00 Dose: 120 mg Azithromycin 500 mg/ Dextrose 250 mls @ 250 mls/hr IVPB DAILY [facility] Last Admin: 11/29/17 11:28 Dose: 250 mls/hr CEFTRIAXONE 1 G/50 ML PREMIX (Ceftriaxone 1 Gm-D5w Bag) 50 mls @ 100 mls/hr IVPB DAILY [facility] Last Admin: 11/29/17 09:59 Dose: 100 mls/hr Insulin Aspart (Novolog Vial Sliding Scale -) 1 vial SQ BID@0700,1630 [facility] PRN Reason: Protocol Last Admin: 11/30/17 06:05 Dose: 4 units Methylprednisolone Sodium Succinate (Solu-Medrol -) 40 mg IVPUSH Q6H-IV [facility] Last Admin: 11/30/17 02:36 Dose: 40 mg Montelukast Sodium (Singulair -) 10 mg PO HS [facility] Last Admin: 11/29/17 21:31 Dose: 10 mg Nicotine (Nicoderm Patch -) 21 mg TD DAILY [facility] Last Admin: 11/29/17 09:58 Dose: 21 mg Nicotine Polacrilex (Nicorette Gum -) 4 mg BUC Q2H PRN PRN Reason: NICOTINE REPLACEMENT RX Last Admin: 11/30/17 04:20 Dose: 4 mg Tamsulosin HCl (Flomax -) 0.4 mg PO DAILY@0830 [facility] Last Admin: 11/29/17 10:00 Dose: 0.4 mg Constitutional: Yes: No Distress,Thin Eyes: Yes: WNL, Conjunctiva Clear, EOM Intact HENT: Yes: WNL, Atraumatic, Normocephalic Neck: Yes: Supple, Trachea Midline, Lymphadenopathy (Right cervical) Cardiovascular: Yes: WNL, Tachycardia, S1, S2 Respiratory: Yes: Cough, basilar rhonchi, SOB, scattered expiratory Wheezes Gastrointestinal: Yes: WNL, Normal Bowel Sounds, Soft. No: Splenomegaly, Tenderness Edema: No Neurological: Yes: WNL, Alert, Oriented Labs: Laboratory Results - last 24 hr 11/29/17 11/29/17 11/30/17 06:00 13:30 06:00 WBC 9.5 RBC 4.11 Hgb 8.6 L Hct 28.0 L MCV 68.1 L MCH 20.9 L MCHC 30.6 L RDW 18.4 H Plt Count 236 MPV 7.3 L Neutrophils % 89.5 H Lymphocytes % 8.6 Monocytes % 1.8 L Eosinophils % 0.0 Basophils % 0.1 ESR 6 Retic Count 1.20 Sodium Potassium Chloride Carbon Dioxide Anion Gap BUN Creatinine POC Glucometer Random Glucose Lactic Acid 4.0 H* Calcium Iron 15 L TIBC 445 Iron Saturation 3 L 11/30/17 11/30/17 06:00 06:03 WBC RBC Hgb Hct MCV MCH MCHC RDW Plt Count MPV Neutrophils % Lymphocytes % Monocytes % Eosinophils % Basophils % ESR Retic Count Sodium 138 Potassium 4.3 Chloride 102 Carbon Dioxide 28 Anion Gap 8 BUN 26 H Creatinine 0.6 L POC Glucometer 201 Random Glucose 165 H D Lactic Acid Calcium 7.8 L Iron TIBC Iron Saturation Assessment/Plan AE of COPD Unexplained weight loss Active smoker Stable lung nodules (dominant lesion:: LIANE 6 mm: stable since February 2016) Acute on chronic bronchitis Wean Medrol BD [place] O2 as needed Zithromax Monitor off Rocephin Outpatient follow up of nodules VTE prophylaxis Work up fpr significant weight loss in progress Dr Weldon
[2017-11-30] MEDS ORDERED: PT OWN MED DRAWER 7, Y5N ONE ×2 (10:55→14:37)
[2017-11-30] MEDS: ASPIRIN COATED 81 MG TABLET.EC PO SCH (11:00)
[2017-11-30] MEDS: TAMSULOSIN HCL 0.4 MG CAP.ER.24H (FP) PO SCH (11:00)
[2017-11-30] MEDS: CEFTRIAXONE 1 G/50 ML PREMIX 50 ML IVPB SCH (11:01)
[2017-11-30] MEDS: NICOTINE 21 MG/24 HOURS TOPICAL PATCH TD SCH (11:01)
--- NOTE | 2017-11-30 12:57 | CON.GI ---
Consult Consult Specialty:: GI Referred by:: Dr. Dary Junior Reason for Consultation:: Anemia - History of Present Illness Chief Complaint: No GI complaints. Patient admitted for shortness of breath and cough 11/26. Asked if he preferred being interviewed in French or Slovenian and he said it didn't matter. History of Present Illness: 87F admitted through [facility] ER for evaluation of SOB and cough. he is being treated for PNA / Asthma/COPD and still complains of SOB. He has a history of respiratory arrest per EMR in 2014 as he was undergoing outpatient cystoscopy. He is noted to be anemic. In review of the [facility] system he has had anemia from 2015. It is unclear if he has ever had a GI work-up and the patient himself is uncertain. His anemia is now microcytic. Serum iron was low on admission. He denies any focal GI complaints aside from chronic constipation, which he describes as having a bowel movement every 3-4 days. There has been no reported rectal bleeding or melena. He smoked cogarettes daily and describes drinking wine daily as well as 2 cups of whiskey "sometimes ". He gives a history of previous PUD that required surgery for bleeding in 1973. There is no family history of colorectal cancer or other GI malignancy. Home med list includes ASA 81mg daily. - History Source History Provided By: Patient, Medical Record Limitations to Obtaining History: No Limitations - Past Medical History Cardio/Vascular: Yes: HTN, Other (ASHD/SMOKER) Pulmonary: Yes: COPD Renal/: Yes: Cancer (bladder cancer- transitional cell), Other (PAST PROSTATE CA) Endocrine: Yes: Diabetes Mellitus - Past Surgical History Additional Surgical History: History for bleeding PUD 1973 - Alcohol/Substance Use Hx Alcohol Use: Yes (wine daily, whiskey as well) History of Substance Use: reports: None - Smoking History Smoking history: Current every day smoker Have you smoked in the past 12 months: Yes Aproximately how many cigarettes per day: 30 - Social History Usual Living Arrangement: With Child ADL: Independent 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year[place] 1955 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 Travel: No Home Medications - Allergies Allergies/Adverse Reactions: Allergies Allergy/AdvReac Type Severity Reaction Status Date / Time No Known Allergies Allergy Verified 11/28/17 08:44 - Home Medications Home Medications: Ambulatory Orders Aspirin [Aspirin EC] 81 mg PO DAILY 11/27/17 Diltiazem HCl [Cartia Xt] 120 mg PO DAILY 11/27/17 Montelukast Sodium [Singulair] 10 mg PO DAILY 11/27/17 Tamsulosin HCl 0.4 mg PO DAILY 11/27/17 Family Disease History - Family Disease History Family Disease History: Other: Father (: unclear causes), Mother (: unclear causes), Brother (1, healthy), Sister (1, healthy), Son (3, 1 age 30 unclear causes), Daughter (2, 1 age 35 of unclear cancer) Review of Systems - Review of Systems Constitutional: reports: Weakness. denies: Fever, Unintentional Wgt. Loss Cardiovascular: reports: Shortness of Breath. denies: Chest Pain Respiratory: reports: Cough, SOB on Exertion Gastrointestinal: reports: Constipation. denies: Abdominal Pain, Diarrhea, Dysphagia, Melena, Nausea, Rectal Bleeding, Vomiting, Vomiting Blood Physical Exam-GI Vital Signs: Vital Signs Temperature 98.2 F 11/30/17 06:00 Pulse Rate 97 H 11/30/17 06:00 Respiratory Rate 20 11/30/17 06:00 Blood Pressure 116/56 11/30/17 06:00 O2 Sat by Pulse Oximetry (%) 96 11/29/17 21:00 Constitutional: Yes: Calm Eyes: No: Sclera Icterus Cardiovascular: Yes: Regular Rate and Rhythm. No: Murmur Respiratory: Yes: Rhonchi (left lung base), Wheezes (expiratory wheezing bilaterally) Gastrointestinal Inspection: Yes: Scars (midline vertical upper abdominal surgical scar). No: Distention ...Auscultate: Yes: Normoactive Bowel Sounds ...Palpate: No: Hepatomegaly, Splenomegaly, Tenderness ...Percussion: No: Tympanitic ...Rectal Exam: Yes: Other (No external lesions, no masses, light brown stool in rectal vault, guaiac negative) Edema: No (No LE edema) Neurological: Yes: Alert, Oriented Labs: CBC, BMP 11/30/17 06:00 11/30/17 06:00 INR, PTT INR 1.05 (0.82-1.09) 11/28/17 10:19 Hepatic Panel Total Bilirubin 0.4 mg/dL (0.2-1.0) 11/28/17 10:19 AST 12 U/L (15-37) L D 11/28/17 10:19 ALT 20 U/L (12-78) 11/28/17 10:19 Alkaline Phosphatase 112 U/L (45-117) 11/28/17 10:19 Albumin 3.5 g/dl (3.4-5.0) 11/28/17 10:19 Problem List - Problems (1) Anemia Assessment/Plan: Microcytic anemia Without history of overt bleeding and FOBT negative on my exam Iron indices are low and it appears as though his anemia is chronic nature dating back to at least 2014 in review of [employer]. Unclear if he has had a previous GI work-up and Mr. Shah could not clarify this for me. Plan: 1. If he has had previous GI work-up, records should be reviewed as to who performed them / when they were performed prior to another work-up. I called his son as well to discuss this with him as well and plan for potential EGD/ Colonoscopy and left my office number to discuss things further 2. Awaiting CT scan of the abdomen and pelvis results. This was performed today 3. When cleared from cardiopulmonary status (especially given previous adverse event during a procedure in the past), EGD and colonoscopy could be performed to exclude potential bleeding sources such as bleeding blood vessels, polyps, cancers of the intestinal tract and also to assess what type of upper GI surgery he had performed for bleeding PUD in past (? partial colectomy). This was discussed in Slovenian as Mr. Shah stated that he did not care if we discussed things in either Slovenian or French. We discussed potential risks of the procedure like but not limited to bleeding, perforation requiring surgery to repair, infection and sedation medication effects all of which could be potentially life threatening. He stated "whatever we want to do is ok". I left a message to discuss things with his son as well 4. consider heme evaluation 5. PPI therapy while on daily ASA and corticosteroid therapy Code(s): D64.9 - ANEMIA, UNSPECIFIED
[2017-11-30] MEDS: AZITHROMYCIN IVPB 500 MG in DEXTROSE 5%-WATER - 250 ML IVPB SCH (13:42)
[2017-11-30] MEDS: PANTOPRAZOLE 20 MG TABLET (FP) PO SCH (13:42)
[2017-11-30] MEDS: MONTELUKAST NA 10 MG TABLET PO SCH (22:38)
[2017-11-30] MEDS: HEPARIN NA (PORCINE) 5,000 UNITS/ML 1ML VIAL SQ SCH (22:38)
[2017-12-01] MEDS: INSULIN SLIDING SCALE (NOVOLOG) 1 VIAL SQ SCH ×2 (06:00→17:03)
--- NOTE | 2017-12-01 06:48 | PN ---
Progress Note, Physician Chief Complaint: reports and consults reviewed pt feels better wants to go home; is on nicotine patch; d/w pt strongly advised to stop smoking will d/w pulm for DC planning check pre and post O2 /RA (although d./w pt can NOT smoke if he has home O2, risk of explosion) - Current Medication List Current Medications: Active Medications Acetaminophen (Tylenol -) 650 mg PO Q6H PRN PRN Reason: PAIN LEVEL 4 - 6 Last Admin: 12/01/17 02:03 Dose: 650 mg Albuterol Sulfate (Ventolin 0.083% Nebulizer Soln -) 1 amp NEB Q4H PRN PRN Reason: SHORT OF BREATH/WHEEZING Last Admin: 11/29/17 05:20 Dose: 1 amp Albuterol/Ipratropium (Duoneb -) 1 amp NEB RTID [facility] Last Admin: 11/30/17 21:05 Dose: 1 amp Aspirin (Ecotrin -) 81 mg PO DAILY [facility] Last Admin: 11/30/17 11:00 Dose: 81 mg Diltiazem HCl (Cardizem Cd -) 120 mg PO DAILY [facility] Last Admin: 11/30/17 11:00 Dose: 120 mg Heparin Sodium (Porcine) (Heparin -) 5,000 unit SQ BID [facility] Last Admin: 11/30/17 22:38 Dose: 5,000 unit Azithromycin 500 mg/ Dextrose 250 mls @ 250 mls/hr IVPB DAILY [facility] Last Admin: 11/30/17 13:42 Dose: 250 mls/hr CEFTRIAXONE 1 G/50 ML PREMIX (Ceftriaxone 1 Gm-D5w Bag) 50 mls @ 100 mls/hr IVPB DAILY [facility] Last Admin: 11/30/17 11:01 Dose: 100 mls/hr Insulin Aspart (Novolog Vial Sliding Scale -) 1 vial SQ BID@0700,1630 [facility] PRN Reason: Protocol Last Admin: 12/01/17 06:00 Dose: 4 units Methylprednisolone Sodium Succinate (Solu-Medrol -) 40 mg IVPUSH BID [facility] Last Admin: 11/30/17 22:38 Dose: 40 mg Montelukast Sodium (Singulair -) 10 mg PO HS [facility] Last Admin: 11/30/17 22:38 Dose: 10 mg Nicotine (Nicoderm Patch -) 21 mg TD DAILY [facility] Last Admin: 11/30/17 11:01 Dose: 21 mg Nicotine Polacrilex (Nicorette Gum -) 4 mg BUC Q2H PRN PRN Reason: NICOTINE REPLACEMENT RX Last Admin: 11/30/17 14:40 Dose: 4 mg Pantoprazole Sodium (Protonix -) 20 mg PO DAILY [facility] Last Admin: 11/30/17 13:42 Dose: 20 mg Tamsulosin HCl (Flomax -) 0.4 mg PO DAILY@0830 [facility] Last Admin: 11/30/17 11:00 Dose: 0.4 mg - Objective Vital Signs: Vital Signs Temperature 98.3 F 11/30/17 22:00 Pulse Rate 86 11/30/17 22:00 Respiratory Rate 20 11/30/17 22:00 Blood Pressure 123/72 11/30/17 22:00 O2 Sat by Pulse Oximetry (%) 96 11/30/17 21:00 Constitutional: Yes: No Distress, Calm Eyes: Yes: Conjunctiva Clear HENT: Yes: Atraumatic Neck: Yes: Supple Cardiovascular: Yes: Regular Rate and Rhythm Respiratory: Yes: CTA Bilaterally Gastrointestinal: Yes: Soft. No: Distention, Tenderness Genitourinary: No: CVA Tenderness - Left, CVA Tenderness - Right Musculoskeletal: No: Joint Stiffness, Joint Swelling Extremities: No: Cold, Cool, Cyanosis Edema: No Integumentary: No: Rash, Venous Stasis Changes Neurological: Yes: WNL, Alert, Oriented ...Motor Strength: WNL Psychiatric: Yes: WNL, Alert, Oriented. No: Agitated, Suicidal Ideation Labs: CBC, BMP 11/30/17 06:00 11/30/17 06:00 INR, PTT INR 1.05 (0.82-1.09) 11/28/17 10:19 - ....Imaging Other: Report Reviewed Assessment/Plan 87 year old M with pmh of bladder CA, COPD (not on home O2), lung nodules (last CT 08/2017), HTN, DM, and current everyday smoker (2 ppd x >60 yrs) presented with worsening SOB, difficulty breathing x 3 months worse for the last few days without any improvement and cough with yellow sputum x 2 months. Patient endorses 60 lb weight loss over since last year admitted with PNA and acute COPD exac steroids, IV antibiotics, nebs, pulm f/u weight loss, anemia: needs further w/u r/o malignancy; needs outpt GI w/u for JAELYN, pulmonary and heme onc f/u also to see cardiology as outpt f/u to r/o ASHD chest abd pelvic CT noted; needs chest CT outpt f/u per pulmonary again strongly advised stop smoking, will order home NRT/ patch; pt to f/u with pulmonary for further treatment (chantix? wellbutryn?) falls, DVT, aspiration decubs PFX d/w pt and staff and pt's family
[2017-12-01] MEDS: ALBUTEROL SO4 2.5/IPRATROPIUM 0.5 INH SOL 3 ML VIAL.NEB. NEB SCH ×3 (07:35→21:00)
[2017-12-01 07:52] LABS: ALBUMIN 3.5 g/dl (3.4-5.0); ANION GAP 10 (8-16); BLOOD UREA NITROGEN 31 mg/dL (7-18); CALCIUM 7.9 mg/dL (8.5-10.1); CHLORIDE 97 mmol/L (98-107); CO2 30 mmol/L (21-32); GLUCOSE,RANDOM 172 mg/dL (74-106); POTASSIUM 4.7 mmol/L (3.5-5.1); SODIUM 137 mmol/L (136-145)
[2017-12-01 07:56] LABS: ALK PHOS 91 U/L (45-117); BILIRUBIN,TOTAL 0.5 mg/dL (0.2-1.0); CREATININE 0.7 mg/dL (0.7-1.3); SGOT/AST 21 U/L (15-37); SGPT/ALT 37 U/L (12-78); TOT PROT 6.7 g/dl (6.4-8.2)
[2017-12-01 08:00] LABS: BASO % 0.1 % (0-2.0); HEMATOCRIT 32.6 % (35.4-49); HEMOGLOBIN 9.7 GM/dL (11.7-16.9); LYMPH % 7.5 % (8-40); MCH 20.4 pg (25.7-33.7); MCHC 29.8 g/dl (32.0-35.9); MEAN CELL VOLUME 68.5 fl (80-96); MEAN PLT VOLUME 7.3 fl (7.5-11.1); MONO % 3.3 % (3.8-10.2); NEUT % 89.1 % (42.8-82.8); PLATELET COUNT 303 K/MM3 (134-434); RBC 4.76 M/mm3 (4.00-5.60); RDW 18.4 % (11.9-15.9)
[2017-12-01] MEDS ORDERED: PT OWN MED DRAWER 7, Y5N ONE ×2 (10:04→14:40)
[2017-12-01] MEDS: HEPARIN NA (PORCINE) 5,000 UNITS/ML 1ML VIAL SQ SCH (10:07)
[2017-12-01] MEDS: PANTOPRAZOLE 20 MG TABLET (FP) PO SCH (10:07)
[2017-12-01] MEDS: TAMSULOSIN HCL 0.4 MG CAP.ER.24H (FP) PO SCH (10:07)
[2017-12-01] MEDS: CEFTRIAXONE 1 G/50 ML PREMIX 50 ML IVPB SCH (10:07)
[2017-12-01] MEDS: ASPIRIN COATED 81 MG TABLET.EC PO SCH (10:07)
[2017-12-01] MEDS: methylPREDNISolone NA SUCC 40 MG/1 ML VIAL IVPUSH SCH (10:08)
[2017-12-01] MEDS: NICOTINE 21 MG/24 HOURS TOPICAL PATCH TD SCH (10:08)
--- NOTE | 2017-12-01 10:46 | PN ---
Progress Note, Physician Chief Complaint: DYSPNEA/cough improved History of Present Illness: REVIEWED - Current Medication List Current Medications: Active Medications Acetaminophen (Tylenol -) 650 mg PO Q6H PRN PRN Reason: PAIN LEVEL 4 - 6 Last Admin: 12/01/17 02:03 Dose: 650 mg Albuterol Sulfate (Ventolin 0.083% Nebulizer Soln -) 1 amp NEB Q4H PRN PRN Reason: SHORT OF BREATH/WHEEZING Last Admin: 11/29/17 05:20 Dose: 1 amp Albuterol/Ipratropium (Duoneb -) 1 amp NEB RTID [facility] Last Admin: 11/30/17 21:05 Dose: 1 amp Aspirin (Ecotrin -) 81 mg PO DAILY [facility] Last Admin: 12/01/17 10:07 Dose: 81 mg Diltiazem HCl (Cardizem Cd -) 120 mg PO DAILY [facility] Last Admin: 12/01/17 10:07 Dose: 120 mg Heparin Sodium (Porcine) (Heparin -) 5,000 unit SQ BID [facility] Last Admin: 12/01/17 10:07 Dose: 5,000 unit Azithromycin 500 mg/ Dextrose 250 mls @ 250 mls/hr IVPB DAILY [facility] Last Admin: 11/30/17 13:42 Dose: 250 mls/hr CEFTRIAXONE 1 G/50 ML PREMIX (Ceftriaxone 1 Gm-D5w Bag) 50 mls @ 100 mls/hr IVPB DAILY [facility] Last Admin: 12/01/17 10:07 Dose: 100 mls/hr Insulin Aspart (Novolog Vial Sliding Scale -) 1 vial SQ BID@0700,1630 [facility] PRN Reason: Protocol Last Admin: 12/01/17 06:00 Dose: 4 units Montelukast Sodium (Singulair -) 10 mg PO HS [facility] Last Admin: 11/30/17 22:38 Dose: 10 mg Nicotine (Nicoderm Patch -) 21 mg TD DAILY [facility] Last Admin: 12/01/17 10:08 Dose: 21 mg Nicotine Polacrilex (Nicorette Gum -) 4 mg BUC Q2H PRN PRN Reason: NICOTINE REPLACEMENT RX Last Admin: 11/30/17 14:40 Dose: 4 mg Pantoprazole Sodium (Protonix -) 20 mg PO DAILY [facility] Last Admin: 12/01/17 10:07 Dose: 20 mg Prednisone (Deltasone -) 40 mg PO DAILY [facility] Tamsulosin HCl (Flomax -) 0.4 mg PO DAILY@0830 [facility] Last Admin: 12/01/17 10:07 Dose: 0.4 mg - Objective Vital Signs: Vital Signs Temperature 98.0 F 12/01/17 06:00 Pulse Rate 95 H 12/01/17 06:00 Respiratory Rate 20 12/01/17 06:00 Blood Pressure 119/68 12/01/17 06:00 O2 Sat by Pulse Oximetry (%) 96 11/30/17 21:00 Constitutional: Yes: Calm Eyes: Yes: EOM Intact HENT: Yes: Normocephalic Neck: Yes: Trachea Midline Cardiovascular: Yes: S1, S2 Respiratory: Yes: Diminished Gastrointestinal: Yes: Soft Edema: No Neurological: Yes: Alert Labs: CBC, BMP 12/01/17 06:00 12/01/17 06:00 INR, PTT INR 1.05 (0.82-1.09) 11/28/17 10:19 - ....Imaging Chest X-ray: Report Reviewed, Image Reviewed Cat Scan: Report Reviewed, Image Reviewed EKG: Report Reviewed Problem List - Problems (1) Acute exacerbation of chronic obstructive pulmonary disease (COPD) Code(s): J44.1 - CHRONIC OBSTRUCTIVE PULMONARY DISEASE W (ACUTE) EXACERBATION (2) COPD exacerbation Code(s): J44.1 - CHRONIC OBSTRUCTIVE PULMONARY DISEASE W (ACUTE) EXACERBATION (3) Pneumonia Code(s): J18.9 - PNEUMONIA, UNSPECIFIED ORGANISM Qualifiers: Pneumonia type: due to unspecified organism Laterality: left Lung location: lower lobe of lung Qualified Code(s): J18.1 - Lobar pneumonia, unspecified organism (4) Anemia Code(s): D64.9 - ANEMIA, UNSPECIFIED (5) HTN (hypertension) Code(s): I10 - ESSENTIAL (PRIMARY) HYPERTENSION Assessment/Plan #COPD exacerbation with L basilar consolidation/atelectasis -IV steroids changed to oral -Antibiotics [Ceftriaxone/Azithromycin], as per pmd -Bronchodilators -O2 as needed 6 mm nodule in the LIANE that has remained essentially unchanged VTE prophylaxis Work up fpr significant weight loss suggested Smoking cessation discharge planning Anaid THORPE MD
[2017-12-01] MEDS: AZITHROMYCIN IVPB 500 MG in DEXTROSE 5%-WATER - 250 ML IVPB SCH (11:07)
--- NOTE | 2017-12-01 13:01 | PN ---
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 B-12 elevated --?? etiology and normal folate Seen by GI and will need assessment in future. Last Vital Signs Temp Pulse Resp BP Pulse Ox 98.0 F 95 H 20 119/68 96 12/01/17 06:00 12/01/17 06:00 12/01/17 06:00 12/01/17 06:00 11/30/17 21:00 HEENT: no icterus Oropharynx: No thrush, No mucositis Cor: RSR, No murmurs, No gallops Lungs: diminished breath sounds bilaterally Abd: Soft, Normal bowel sounds, No organomegaly Ext:No significant edema Skin: No rashes, Integument intact CBC, BMP 12/01/17 06:00 12/01/17 06:00 Current Medications Generic Name Dose Route Start Last Admin Trade Name Freq PRN Reason Stop Dose Admin Acetaminophen 650 mg 11/28/17 14:35 12/01/17 02:03 Tylenol - PO 650 mg Q6H PRN Administration PAIN LEVEL 4 - 6 Albuterol Sulfate 1 amp 11/28/17 15:03 11/29/17 05:20 Ventolin 0.083% Nebulizer Soln - NEB 1 amp Q4H PRN Administration SHORT OF BREATH/WHEEZING Albuterol/Ipratropium 1 amp 11/28/17 20:00 12/01/17 07:35 Duoneb - NEB 1 amp RTID [facility] Administration Aspirin 81 mg 11/29/17 10:00 12/01/17 10:07 Ecotrin - PO 81 mg DAILY [facility] Administration Diltiazem HCl 120 mg 11/29/17 10:00 12/01/17 10:07 Cardizem Cd - PO 120 mg DAILY [facility] Administration Heparin Sodium (Porcine) 5,000 unit 11/30/17 22:00 12/01/17 10:07 Heparin - SQ 5,000 unit BID [facility] Administration Azithromycin 500 mg/ Dextrose 250 mls @ 250 mls/hr 11/28/17 12:30 12/01/17 11 :07 IVPB 250 mls/hr DAILY [facility] Administration CEFTRIAXONE 1 G/50 ML PREMIX 50 mls @ 100 mls/hr 11/28/17 12:30 12/01/17 10: 07 Ceftriaxone 1 Gm-D5w Bag IVPB 100 mls/hr DAILY [facility] Administration Insulin Aspart 1 vial 11/28/17 16:30 12/01/17 06:00 Novolog Vial Sliding Scale - SQ 4 units BID@0700,1630 [facility] Administration Protocol Montelukast Sodium 10 mg 11/28/17 22:00 11/30/17 22:38 Singulair - PO 10 mg HS [facility] Administration Nicotine 21 mg 11/28/17 18:15 12/01/17 10:08 Nicoderm Patch - TD 21 mg DAILY [facility] Administration Nicotine Polacrilex 4 mg 11/29/17 21:45 11/30/17 14:40 Nicorette Gum - BUC 4 mg Q2H PRN Administration NICOTINE REPLACEMENT RX Pantoprazole Sodium 20 mg 11/30/17 13:30 12/01/17 10:07 Protonix - PO 20 mg DAILY [facility] Administration Prednisone 40 mg 12/01/17 20:00 Deltasone - PO DAILY [facility] Tamsulosin HCl 0.4 mg 11/29/17 08:30 12/01/17 10:07 Flomax - PO 0.4 mg DAILY@0830 [facility] Administration Impression: Exacerbation of COPD- antibiotics and steroids Anemia- Fe++ deficiecny - GI work up when feasible Pulmonary nodules- out patient f/u Weight loss -as above
[2017-12-01] MEDS ORDERED: INSULIN (NOVOLOG) ASPART 100 UNITS/ML 10ML VIAL ONE (17:00)
[2017-12-02] MEDS: MONTELUKAST NA 10 MG TABLET PO SCH ×2 (01:00→21:12)
[2017-12-02] MEDS: HEPARIN NA (PORCINE) 5,000 UNITS/ML 1ML VIAL SQ SCH ×3 (01:00→21:12)
[2017-12-02] MEDS: predniSONE 20 MG TABLET (UD) PO SCH ×2 (01:00→10:28)
[2017-12-02] MEDS: INSULIN SLIDING SCALE (NOVOLOG) 1 VIAL SQ SCH ×2 (06:53→18:13)
[2017-12-02] MEDS: ALBUTEROL SO4 2.5/IPRATROPIUM 0.5 INH SOL 3 ML VIAL.NEB. NEB SCH ×3 (07:25→21:00)
--- NOTE | 2017-12-02 08:52 | DS ---
Physical Examination Vital Signs: Vital Signs Temperature 98.1 F 12/02/17 05:54 Pulse Rate 78 12/02/17 05:54 Respiratory Rate 18 12/02/17 05:54 Blood Pressure 125/59 12/02/17 05:54 O2 Sat by Pulse Oximetry (%) 94 L 12/01/17 18:15 Findings/Remarks: feels well wants to go home; d/w pulm dr Weldon OK to DC home; does not need home O2 per pre&post/RA (>90%) I called pt's daughter Ashleigh and I d/w pt's at bedside about pt's condition and plan but they said they are not ready to take him home today; d/w pt and family about stopping smoking and about outpt f/u needed t time 45 min Constitutional: Yes: No Distress, Calm Eyes: Yes: Conjunctiva Clear HENT: Yes: Atraumatic Neck: Yes: Supple Cardiovascular: Yes: Regular Rate and Rhythm Respiratory: Yes: CTA Bilaterally Gastrointestinal: Yes: Soft. No: Distention, Tenderness Renal/: No: CVA Tenderness - Left, CVA Tenderness - Right Musculoskeletal: No: Joint Stiffness, Joint Swelling Extremities: No: Cold, Cool, Cyanosis Edema: No Integumentary: No: Rash, Venous Stasis Changes Neurological: Yes: WNL, Alert, Oriented ...Motor Strength: WNL Psychiatric: Yes: WNL, Alert, Oriented. No: Agitated, Suicidal Ideation Discharge Summary Reason For Visit: PNEUMONIA Current Active Problems Acute exacerbation of chronic obstructive pulmonary disease (COPD) (Acute) COPD exacerbation (Acute) Pneumonia (Acute) Procedures: Principal: admitted with acute COPD exac, bronchitis; Other Procedures: IV steroids, nebs, IV antibiotics; O2 NC;. seen by pulmonary ; also seen by GI and heme onc for weight loss and anemia Hospital Course: improved with above; DC home with f/u as advised; stop smoking d/w pt and at bedside and daughter Ashleigh/ phone Condition: Stable - Instructions Diet, Activity, Other Instructions: f/u PCP and pulmonary drs in 1-2 weeks f/u labs CBC CMP in 1-[address] in few months per pulmonary cardiology outpt eval dr Mei r/o ASHD to f/u with heme onc dr Mann for anemia w/u r/o malignancy to have GI w.u EGD colonoscopy with GI DR Lucina Burciaga outpt r/o malignancy when cleared by pulm and cardiology falls PFX STOP smoking RTER if worse or recurrent c/o d/w pt and family, scripts done Referrals: Vivek Junior MD [Primary Care Provider] - Jose Enrique Rothman MD [Staff Physician] - Ham Mann MD [Staff Physician] - Jesse Burciaga DO [Staff Physician] - Franco Mei MD [Staff Physician] - - Home Medications Comprehensive Discharge Medication List: Ambulatory Orders Aspirin [Aspirin EC] 81 mg PO DAILY 11/27/17 Diltiazem HCl [Cartia Xt] 120 mg PO DAILY 11/27/17 Montelukast Sodium [Singulair] 10 mg PO DAILY 11/27/17 Tamsulosin HCl 0.4 mg PO DAILY 11/27/17 Acetaminophen [Tylenol .Regular Strength -] 650 mg PO Q6H PRN tablet 12/02/17 Albuterol Sulfate Inhaler - [Ventolin Hfa Inhaler -] 2 inh PO Q6H PRN #1 inh Nicotine Patch [Nicoderm Patch -] 1 patch TD DAILY #30 patch 12/02/17 Pantoprazole Sodium [Protonix -] 20 mg PO DAILY #20 tablet.ec 12/02/17 predniSONE [Deltasone -] 40 mg PO DAILY #10 tablet 12/02/17
[2017-12-02 08:53] LABS: BASO % 0.1 % (0-2.0); HEMATOCRIT 27.6 % (35.4-49); HEMOGLOBIN 8.5 GM/dL (11.7-16.9); LYMPH % 9.2 % (8-40); MCH 20.8 pg (25.7-33.7); MCHC 30.7 g/dl (32.0-35.9); MEAN CELL VOLUME 67.7 fl (80-96); MEAN PLT VOLUME 7.2 fl (7.5-11.1); NEUT % 85.7 % (42.8-82.8); PLATELET COUNT 262 K/MM3 (134-434); RBC 4.07 M/mm3 (4.00-5.60); RDW 18.6 % (11.9-15.9); WHITE BLOOD COUNT 8.6 K/mm3 (4.0-10.0)
[2017-12-02 09:13] LABS: ALBUMIN 3.1 g/dl (3.4-5.0); ANION GAP 8 (8-16); BILIRUBIN,TOTAL 0.4 mg/dL (0.2-1.0); BLOOD UREA NITROGEN 26 mg/dL (7-18); CALCIUM 7.2 mg/dL (8.5-10.1); CHLORIDE 99 mmol/L (98-107); CO2 30 mmol/L (21-32); CREATININE 0.6 mg/dL (0.7-1.3); GLUCOSE,RANDOM 167 mg/dL (74-106); POTASSIUM 4.4 mmol/L (3.5-5.1); SGOT/AST 20 U/L (15-37); SGPT/ALT 39 U/L (12-78); SODIUM 137 mmol/L (136-145); TOT PROT 5.8 g/dl (6.4-8.2)
[2017-12-02 09:23] LABS: ALK PHOS 75 U/L (45-117)
[2017-12-02] MEDS ORDERED: PT OWN MED DRAWER 7, Y5N ONE (10:22)
[2017-12-02] MEDS: TAMSULOSIN HCL 0.4 MG CAP.ER.24H (FP) PO SCH (10:27)
[2017-12-02] MEDS: PANTOPRAZOLE 20 MG TABLET (FP) PO SCH (10:27)
[2017-12-02] MEDS: ASPIRIN COATED 81 MG TABLET.EC PO SCH (10:28)
[2017-12-02] MEDS: NICOTINE 21 MG/24 HOURS TOPICAL PATCH TD SCH (10:28)
[2017-12-02] MEDS: CEFTRIAXONE 1 G/50 ML PREMIX 50 ML IVPB SCH (10:28)
[2017-12-02] MEDS: AZITHROMYCIN IVPB 500 MG in DEXTROSE 5%-WATER - 250 ML IVPB SCH (10:28)
--- NOTE | 2017-12-02 10:41 | PN ---
Progress Note (short form) - Note Progress Note: No acute events overnight. Feels overall better. No CP . Intake & Output 11/29/17 11/30/17 12/01/17 12/02/17 23:59 23:59 23:59 23:59 Intake Total 1280 400 300 Balance 1280 400 300 Last Vital Signs Temp Pulse Resp BP Pulse Ox 98.1 F 78 18 125/59 98 12/02/17 05:54 12/02/17 05:54 12/02/17 05:54 12/02/17 05:54 12/01/17 21:00 Active Medications Acetaminophen (Tylenol -) 650 mg PO Q6H PRN PRN Reason: PAIN LEVEL 4 - 6 Last Admin: 12/01/17 02:03 Dose: 650 mg Albuterol Sulfate (Ventolin 0.083% Nebulizer Soln -) 1 amp NEB Q4H PRN PRN Reason: SHORT OF BREATH/WHEEZING Last Admin: 11/29/17 05:20 Dose: 1 amp Albuterol/Ipratropium (Duoneb -) 1 amp NEB RTID [facility] Last Admin: 12/02/17 07:25 Dose: 1 amp Aspirin (Ecotrin -) 81 mg PO DAILY [facility] Last Admin: 12/02/17 10:28 Dose: 81 mg Diltiazem HCl (Cardizem Cd -) 120 mg PO DAILY [facility] Last Admin: 12/02/17 10:27 Dose: 120 mg Heparin Sodium (Porcine) (Heparin -) 5,000 unit SQ BID [facility] Last Admin: 12/02/17 10:28 Dose: 5,000 unit Azithromycin 500 mg/ Dextrose 250 mls @ 250 mls/hr IVPB DAILY [facility] Last Admin: 12/02/17 10:28 Dose: 250 mls/hr CEFTRIAXONE 1 G/50 ML PREMIX (Ceftriaxone 1 Gm-D5w Bag) 50 mls @ 100 mls/hr IVPB DAILY [facility] Last Admin: 12/02/17 10:28 Dose: 100 mls/hr Insulin Aspart (Novolog Vial Sliding Scale -) 1 vial SQ BID@0700,1630 [facility] PRN Reason: Protocol Last Admin: 12/02/17 06:53 Dose: 4 units Montelukast Sodium (Singulair -) 10 mg PO HS [facility] Last Admin: 12/02/17 01:00 Dose: 10 mg Nicotine (Nicoderm Patch -) 21 mg TD DAILY [facility] Last Admin: 12/02/17 10:28 Dose: 21 mg Nicotine Polacrilex (Nicorette Gum -) 4 mg BUC Q2H PRN PRN Reason: NICOTINE REPLACEMENT RX Last Admin: 11/30/17 14:40 Dose: 4 mg Pantoprazole Sodium (Protonix -) 20 mg PO DAILY [facility] Last Admin: 12/02/17 10:27 Dose: 20 mg Prednisone (Deltasone -) 40 mg PO DAILY [facility] Last Admin: 12/02/17 10:28 Dose: 40 mg Tamsulosin HCl (Flomax -) 0.4 mg PO DAILY@0830 [facility] Last Admin: 12/02/17 10:27 Dose: 0.4 mg Constitutional: Yes: No Distress,Thin Eyes: Yes: WNL, Conjunctiva Clear, EOM Intact HENT: Yes: WNL, Atraumatic, Normocephalic Neck: Yes: Supple, Trachea Midline, Lymphadenopathy (Right cervical) Cardiovascular: Yes: WNL, Tachycardia, S1, S2 Respiratory: Yes: Cough, basilar rhonchi, SOB, No wheezes Gastrointestinal: Yes: WNL, Normal Bowel Sounds, Soft. No: Splenomegaly, Tenderness Edema: No Neurological: Yes: WNL, Alert, Oriented Labs: Laboratory Results - last 24 hr 11/30/17 11/30/17 12/01/17 06:00 06:00 16:52 WBC RBC Hgb Hct MCV MCH MCHC RDW Plt Count MPV Neutrophils % Lymphocytes % Monocytes % Eosinophils % Basophils % Sodium Potassium Chloride Carbon Dioxide Anion Gap BUN Creatinine Creat Clearance w eGFR POC Glucometer 202 Random Glucose Calcium Total Bilirubin AST ALT Alkaline Phosphatase Total Protein Total Protein (PEP) 5.8 L Albumin Albumin (PEP) 3.1 Globulin 2.7 Albumin/Globulin Ratio 1.1 Umqiw-2-Zdiwilmhn (%) Cancelled Nksjw-8-Vfvmcnjoz (%) Cancelled Beta Globulins 0.9 0.9 Beta Globulins (%) Cancelled Gamma Globulins (%) Cancelled M-Raad % Cancelled TSH Free T4 JOSE & SPEP Interp Total Protein (JOSE) 5.6 L Albumin (JOSE) 3.0 Albumin/Globulin (JOSE) 1.2 Oylod-0-Enwtxwgdo JOSE 0.2 Jndvm-6-Lchflsdkq JOSE 0.7 Gamma Globulins (JOSE) 0.9 JOSE M-Raad Not observed Not observed JOSE Comments IEP IgG 835 IEP IgA 153 IEP IgM 65 Ref Test Comments Cancelled 12/02/17 12/02/17 12/02/17 06:52 07:00 07:00 WBC 8.6 RBC 4.07 Hgb 8.5 L D Hct 27.6 L D MCV 67.7 L MCH 20.8 L MCHC 30.7 L RDW 18.6 H Plt Count 262 MPV 7.2 L Neutrophils % 85.7 H Lymphocytes % 9.2 D Monocytes % 5.0 Eosinophils % 0.0 Basophils % 0.1 Sodium 137 Potassium 4.4 Chloride 99 Carbon Dioxide 30 Anion Gap 8 BUN 26 H Creatinine 0.6 L Creat Clearance w eGFR > 60 POC Glucometer 248 Random Glucose 167 H Calcium 7.2 L Total Bilirubin 0.4 AST 20 ALT 39 Alkaline Phosphatase 75 Total Protein 5.8 L Total Protein (PEP) Albumin 3.1 L Albumin (PEP) Globulin Albumin/Globulin Ratio Thjuc-9-Zodvarrie (%) Tlpfh-1-Cetsypswy (%) Beta Globulins Beta Globulins (%) Gamma Globulins (%) M-Raad % TSH 0.59 D Free T4 JOSE & SPEP Interp Total Protein (JOSE) Albumin (JOSE) Albumin/Globulin (JOSE) Cwvfb-8-Ygkhkbhjc JOSE Vzuce-4-Yyrqdqynh JOSE Gamma Globulins (JOSE) JOSE M-Raad JOSE Comments IEP IgG IEP IgA IEP IgM Ref Test Comments 12/02/17 07:00 WBC RBC Hgb Hct MCV MCH MCHC RDW Plt Count MPV Neutrophils % Lymphocytes % Monocytes % Eosinophils % Basophils % Sodium Potassium Chloride Carbon Dioxide Anion Gap BUN Creatinine Creat Clearance w eGFR POC Glucometer Random Glucose Calcium Total Bilirubin AST ALT Alkaline Phosphatase Total Protein Total Protein (PEP) Albumin Albumin (PEP) Globulin Albumin/Globulin Ratio Usrkw-5-Rfpuzladx (%) Sgaaq-7-Numqbtkxr (%) Beta Globulins Beta Globulins (%) Gamma Globulins (%) M-Raad % TSH Free T4 0.90 JOSE & SPEP Interp Total Protein (JOSE) Albumin (JOSE) Albumin/Globulin (JOSE) Mqveb-6-Akpnthgll JOSE Pdxmd-6-Muwavdauc JOSE Gamma Globulins (JOSE) JOSE M-Raad JOSE Comments IEP IgG IEP IgA IEP IgM Ref Test Comments Assessment/Plan AE of COPD Unexplained weight loss Active smoker Stable lung nodules (dominant lesion:: LIANE 6 mm: stable since February 2016) Acute on chronic bronchitis Prednsione BD TX O2 as needed Outpatient follow up of nodules Pre and post O2 saturation to be checked (patient is still actively smoking) Can D/C on a LABA/LAMA combo such as Anoro daily Dr Weldon
[2017-12-03] MEDS: INSULIN SLIDING SCALE (NOVOLOG) 1 VIAL SQ SCH (06:20)
[2017-12-03] MEDS: ALBUTEROL SO4 2.5/IPRATROPIUM 0.5 INH SOL 3 ML VIAL.NEB. NEB SCH ×2 (08:15→14:27)
[2017-12-03] MEDS: CEFTRIAXONE 1 G/50 ML PREMIX 50 ML IVPB SCH (09:10)
[2017-12-03] MEDS: predniSONE 20 MG TABLET (UD) PO SCH (09:10)
[2017-12-03] MEDS: TAMSULOSIN HCL 0.4 MG CAP.ER.24H (FP) PO SCH (09:10)
[2017-12-03] MEDS: NICOTINE 21 MG/24 HOURS TOPICAL PATCH TD SCH (09:11)
[2017-12-03] MEDS: HEPARIN NA (PORCINE) 5,000 UNITS/ML 1ML VIAL SQ SCH (09:12)
[2017-12-03] MEDS: ASPIRIN COATED 81 MG TABLET.EC PO SCH (09:13)
[2017-12-03] MEDS: PANTOPRAZOLE 20 MG TABLET (FP) PO SCH (09:13)
[2017-12-03] MEDS: AZITHROMYCIN IVPB 500 MG in DEXTROSE 5%-WATER - 250 ML IVPB SCH (09:14)
[2017-12-03 10:31] VITALS: BP 99/52; PULSE 103; TEMP 98.3
--- NOTE | 2017-12-03 11:02 | PN ---
Progress Note (short form) - Note Progress Note: Family apparently refused to take patient home due to social issues. No acute events overnight. Feels overall better. No CP . Intake & Output 11/30/17 12/01/17 12/02/17 12/03/17 23:59 23:59 23:59 23:59 Intake Total 035 831 1031 500 Balance 499 331 9551 500 Last Vital Signs Temp Pulse Resp BP Pulse Ox 98.3 F 103 H 18 99/52 96 12/03/17 10:00 12/03/17 10:00 12/03/17 10:00 12/03/17 10:00 12/02/17 21:00 Active Medications Acetaminophen (Tylenol -) 650 mg PO Q6H PRN PRN Reason: PAIN LEVEL 4 - 6 Last Admin: 12/01/17 02:03 Dose: 650 mg Albuterol Sulfate (Ventolin 0.083% Nebulizer Soln -) 1 amp NEB Q4H PRN PRN Reason: SHORT OF BREATH/WHEEZING Last Admin: 11/29/17 05:20 Dose: 1 amp Albuterol/Ipratropium (Duoneb -) 1 amp NEB RTID [facility] Last Admin: 12/03/17 08:15 Dose: 1 amp Aspirin (Ecotrin -) 81 mg PO DAILY [facility] Last Admin: 12/03/17 09:13 Dose: 81 mg Diltiazem HCl (Cardizem Cd -) 120 mg PO DAILY [facility] Last Admin: 12/03/17 09:10 Dose: 120 mg Heparin Sodium (Porcine) (Heparin -) 5,000 unit SQ BID [facility] Last Admin: 12/03/17 09:12 Dose: 5,000 unit Azithromycin 500 mg/ Dextrose 250 mls @ 250 mls/hr IVPB DAILY [facility] Last Admin: 12/03/17 09:14 Dose: 250 mls/hr CEFTRIAXONE 1 G/50 ML PREMIX (Ceftriaxone 1 Gm-D5w Bag) 50 mls @ 100 mls/hr IVPB DAILY [facility] Last Admin: 12/03/17 09:10 Dose: 100 mls/hr Insulin Aspart (Novolog Vial Sliding Scale -) 1 vial SQ BID@0700,1630 [facility] PRN Reason: Protocol Last Admin: 12/03/17 06:20 Dose: Not Given Montelukast Sodium (Singulair -) 10 mg PO HS [facility] Last Admin: 12/02/17 21:12 Dose: 10 mg Nicotine (Nicoderm Patch -) 21 mg TD DAILY [facility] Last Admin: 12/03/17 09:11 Dose: 21 mg Nicotine Polacrilex (Nicorette Gum -) 4 mg BUC Q2H PRN PRN Reason: NICOTINE REPLACEMENT RX Last Admin: 11/30/17 14:40 Dose: 4 mg Pantoprazole Sodium (Protonix -) 20 mg PO DAILY [facility] Last Admin: 12/03/17 09:13 Dose: 20 mg Prednisone (Deltasone -) 40 mg PO DAILY [facility] Last Admin: 12/03/17 09:10 Dose: 40 mg Tamsulosin HCl (Flomax -) 0.4 mg PO DAILY@0830 [facility] Last Admin: 12/03/17 09:10 Dose: 0.4 mg Constitutional: Yes: No Distress,Thin Eyes: Yes: WNL, Conjunctiva Clear, EOM Intact HENT: Yes: WNL, Atraumatic, Normocephalic Neck: Yes: Supple, Trachea Midline, Lymphadenopathy (Right cervical) Cardiovascular: Yes: WNL, Tachycardia, S1, S2 Respiratory: Yes: Cough, basilar rhonchi, SOB, No wheezes Gastrointestinal: Yes: WNL, Normal Bowel Sounds, Soft. No: Splenomegaly, Tenderness Edema: No Neurological: Yes: WNL, Alert, Oriented Labs: Laboratory Results - last 24 hr 12/03/17 05:20 POC Glucometer 114 Assessment/Plan AE of COPD Unexplained weight loss Active smoker Stable lung nodules (dominant lesion:: LIANE 6 mm: stable since February 2016) Acute on chronic bronchitis Prednsione BD TX O2 as needed Outpatient follow up of nodules Pre and post O2 saturation to be checked (patient is still actively smoking) D/C on a LABA/LAMA combo such as Anoro daily Dr Weldon
--- NOTE | 2017-12-03 11:24 | PN ---
Progress Note, Physician History of Present Illness: Pt w/o SOB, SOB with walking, Wheezing, CP,palpitations. Pt's cough is decreased. Pt states that his smoking urge is controlled by nicotine patch and gum. - Current Medication List Current Medications: Active Medications Acetaminophen (Tylenol -) 650 mg PO Q6H PRN PRN Reason: PAIN LEVEL 4 - 6 Last Admin: 12/01/17 02:03 Dose: 650 mg Albuterol Sulfate (Ventolin 0.083% Nebulizer Soln -) 1 amp NEB Q4H PRN PRN Reason: SHORT OF BREATH/WHEEZING Last Admin: 11/29/17 05:20 Dose: 1 amp Albuterol/Ipratropium (Duoneb -) 1 amp NEB RTID [facility] Last Admin: 12/03/17 08:15 Dose: 1 amp Aspirin (Ecotrin -) 81 mg PO DAILY [facility] Last Admin: 12/03/17 09:13 Dose: 81 mg Diltiazem HCl (Cardizem Cd -) 120 mg PO DAILY [facility] Last Admin: 12/03/17 09:10 Dose: 120 mg Heparin Sodium (Porcine) (Heparin -) 5,000 unit SQ BID [facility] Last Admin: 12/03/17 09:12 Dose: 5,000 unit Azithromycin 500 mg/ Dextrose 250 mls @ 250 mls/hr IVPB DAILY [facility] Last Admin: 12/03/17 09:14 Dose: 250 mls/hr CEFTRIAXONE 1 G/50 ML PREMIX (Ceftriaxone 1 Gm-D5w Bag) 50 mls @ 100 mls/hr IVPB DAILY [facility] Last Admin: 12/03/17 09:10 Dose: 100 mls/hr Insulin Aspart (Novolog Vial Sliding Scale -) 1 vial SQ BID@0700,1630 [facility] PRN Reason: Protocol Last Admin: 12/03/17 06:20 Dose: Not Given Montelukast Sodium (Singulair -) 10 mg PO HS [facility] Last Admin: 12/02/17 21:12 Dose: 10 mg Nicotine (Nicoderm Patch -) 21 mg TD DAILY [facility] Last Admin: 12/03/17 09:11 Dose: 21 mg Nicotine Polacrilex (Nicorette Gum -) 4 mg BUC Q2H PRN PRN Reason: NICOTINE REPLACEMENT RX Last Admin: 11/30/17 14:40 Dose: 4 mg Pantoprazole Sodium (Protonix -) 20 mg PO DAILY [facility] Last Admin: 12/03/17 09:13 Dose: 20 mg Prednisone (Deltasone -) 40 mg PO DAILY [facility] Last Admin: 12/03/17 09:10 Dose: 40 mg Tamsulosin HCl (Flomax -) 0.4 mg PO DAILY@0830 [facility] Last Admin: 12/03/17 09:10 Dose: 0.4 mg - Objective Vital Signs: Vital Signs Temperature 98.3 F 12/03/17 10:00 Pulse Rate 103 H 12/03/17 10:00 Respiratory Rate 18 12/03/17 10:00 Blood Pressure 99/52 12/03/17 10:00 O2 Sat by Pulse Oximetry (%) 96 12/02/17 21:00 Constitutional: Yes: No Distress, Calm Cardiovascular: Yes: Regular Rate and Rhythm, S1, S2 Respiratory: Yes: Regular, Rhonchi (minimal, scattered). No: Wheezes Gastrointestinal: Yes: Normal Bowel Sounds, Soft. No: Tenderness Edema: No Neurological: Yes: Alert, Oriented Labs: CBC, BMP 12/02/17 07:00 12/02/17 07:00 INR, PTT INR 1.05 (0.82-1.09) 11/28/17 10:19 Problem List - Problems (1) Pneumonia Code(s): J18.9 - PNEUMONIA, UNSPECIFIED ORGANISM Qualifiers: Pneumonia type: due to unspecified organism Laterality: left Lung location: lower lobe of lung Qualified Code(s): J18.1 - Lobar pneumonia, unspecified organism (2) Acute exacerbation of chronic obstructive pulmonary disease (COPD) Code(s): J44.1 - CHRONIC OBSTRUCTIVE PULMONARY DISEASE W (ACUTE) EXACERBATION (3) DM2 (diabetes mellitus, type 2) Code(s): E11.9 - TYPE 2 DIABETES MELLITUS WITHOUT COMPLICATIONS (4) HTN (hypertension) Code(s): I10 - ESSENTIAL (PRIMARY) HYPERTENSION Assessment/Plan IV abtx IV steroids were changed to Prednisone Pulmonary, GI, Heme consult and f/u appreciated. Pt wants to go home; to Dc home today with outpat f/u with PCP, Pulmonary, GI, Heme. I reviewed with pt importance of continuing nicotine patch and gum, not to smoke at all, to comply with ADA diet, to call for follow-up appointments. Pt aggress with all recommendations- pt's nurse was a bed side. I reviewed with his nurse Nicotine gum use: maximum 4 times per day. I reviewed with pt's son ( came to pick him up, at bed side) about his father DC plan- including smoking. Time spent for coordinating pt's care: over 40 minutes.
[2017-12-06 16:28] LABS: TOTAL PROTEIN, URINE 13.8 mg/dL (Not Estab.)
== END 2017-12-03 14:43 | disposition home or self-care (01) | DRG 190 ==
LOC: JER 08:42 → JERBED 10:07 → J8W 14:24
PROVIDERS: ADMIT Specialist; ATTEND Specialist
DX: J44.1 Chronic obstructive pulmonary disease with (acute) exacerbation (principal); J18.9 Pneumonia, unspecified organism; J98.11 Atelectasis; E11.9 Type 2 diabetes mellitus without complications; I10 Essential (primary) hypertension; F17.210 Nicotine dependence, cigarettes, uncomplicated; J20.9 Acute bronchitis, unspecified; R63.4 Abnormal weight loss; Z68.20 Body mass index [BMI] 20.0-20.9, adult; D50.9 Iron deficiency anemia, unspecified
CPT/HCPCS: 36415; 71045-TC-FY; 71270-TC; 74178-TC; 80048; 80053; 81003; 82550; 82607; 82747; 82784; 82803; 82962; 83540; 83550; 83605; 84155; 84156; 84157; 84165; 84439; 84443; 84484; 85014; 85025; 85027; 85044; 85610; 85651; 85730; 86334; 86850; 86900; 86901; 87040; 87070; 87205; 93005; 93010; 94640; 94761; 99284-25; J1644

== ENCOUNTER 2017-12-13 18:45 | Inpatient (IN) | payer OTHER ==
[2017-12-13 20:12] LABS: HEMATOCRIT 28.6 % (35.4-49); HEMOGLOBIN 8.7 GM/dL (11.7-16.9); MCH 20.7 pg (25.7-33.7); MCHC 30.3 g/dl (32.0-35.9); MEAN CELL VOLUME 68.1 fl (80-96); MEAN PLT VOLUME 6.8 fl (7.5-11.1); PLATELET COUNT 310 K/MM3 (134-434); RDW 19.4 % (11.9-15.9); WHITE BLOOD COUNT 12.6 K/mm3 (4.0-10.0)
[2017-12-13 20:21] LABS: ADD RBC MORPHOLOGY YES
[2017-12-13 20:42] LABS: ALBUMIN 3.1 g/dl (3.4-5.0); ALK PHOS 96 U/L (45-117); ANION GAP 6 (8-16); BILIRUBIN,TOTAL 0.3 mg/dL (0.2-1.0); BLOOD UREA NITROGEN 19 mg/dL (7-18); CALCIUM 7.3 mg/dL (8.5-10.1); CHLORIDE 103 mmol/L (98-107); CO2 28 mmol/L (21-32); CREATININE 0.6 mg/dL (0.7-1.3); GLUCOSE,RANDOM 112 mg/dL (74-106); SGOT/AST 18 U/L (15-37); SGPT/ALT 38 U/L (12-78); SODIUM 137 mmol/L (136-145); TOT PROT 6.2 g/dl (6.4-8.2)
--- NOTE | 2017-12-13 21:04 | PDOC ---
History of Present Illness - General Chief Complaint: Weakness Stated Complaint: SICK Time Seen by Provider: 12/13/17 19:10 History Source: Patient Exam Limitations: No Limitations - History of Present Illness Initial Comments: 12/13/17 21:04 The patient is a 87-year-old male with a significant past medical history of COPD (not on home O2), HTN, DM, asthma, bladder CA, heavy tobacco use, and a history of respiratory arrest, and presents to the emergency department after a fall, didn't hit his head but not witnessed, no LOC. Past History - Past Medical History Allergies/Adverse Reactions: Allergies Allergy/AdvReac Type Severity Reaction Status Date / Time No Known Allergies Allergy Verified 11/28/17 08:44 Home Medications: Ambulatory Orders Aspirin [Aspirin EC] 81 mg PO DAILY 11/27/17 Diltiazem HCl [Cartia Xt] 120 mg PO DAILY 11/27/17 Montelukast Sodium [Singulair] 10 mg PO DAILY 11/27/17 Acetaminophen [Tylenol .Regular Strength -] 650 mg PO Q6H PRN tablet 12/02/17 Albuterol 0.083% Nebulizer Jacque [Ventolin 0.083% Nebulizer Soln -] 1 neb NEB Q6H PRN #30 vial 12/02/17 Pantoprazole Sodium [Protonix -] 20 mg PO DAILY #20 tablet.ec 12/02/17 Umeclidinium Brm/Vilanterol Tr [Anoro Ellipta 62.5-25 Mcg INH] 1 each IH DAILY # 1 blst.w.dev MDD 1 12/03/17 Cefpodoxime Proxetil [Vantin -] 200 mg PO Q12H #10 tablet MDD 2 12/04/17 Asthma: Yes Cancer: Yes COPD: Yes (EMPHYSEMA; RESPIRATORY ARREST S/P CYSTO) Diabetes: No (LOW BL.SUGAR) - Surgical History Abdominal Surgery: Yes (STOMACH ULCER) - Suicide/Smoking/Psychosocial Hx Smoking History: Current every day smoker Have you smoked in the past 12 months: Yes Number of Cigarettes Smoked Daily: 40 Information on smoking cessation initiated: Yes 'Breaking Loose' booklet given: 11/29/17 Hx Alcohol Use: Yes (wine daily, whiskey as well) Drug/Substance Use Hx: No Substance Use Type: None Hx Substance Use Treatment: No Review of Systems - Review of Systems Able to Perform ROS?: No Is the patient limited Albanian proficient: No Constitutional: No: Symptoms Reported HEENTM: No: Symptoms Reported Respiratory: No: Symptoms reported *Physical Exam - Vital Signs Last Vital Signs Temp Pulse Resp BP Pulse Ox 96.8 F L 84 18 125/68 96 12/13/17 19:12 12/13/17 19:19 12/13/17 19:12 12/13/17 19:12 12/13/17 19:34 - Physical Exam General Appearance: Yes: Thin HEENT: positive: EOMI, VALORIE Respiratory/Chest: positive: Rhonchi. negative: Chest Tender Cardiovascular: positive: Regular Rhythm, Regular Rate, S1, S2 Gastrointestinal/Abdominal: positive: Normal Bowel Sounds, Flat, Soft. negative : Tender Integumentary: positive: Normal Color, Dry, Warm ED Treatment Course - LABORATORY CBC & Chemistry Diagram: 12/13/17 20:00 12/13/17 20:00 - ADDITIONAL ORDERS Additional order review: 12/13/17 20:00 RBC 4.20 MCV 68.1 L MCHC 30.3 L RDW 19.4 H MPV 6.8 L Neutrophils % No Result Required. Lymphocytes % No Result Required. - RADIOLOGY Radiology Studies Ordered: Category Date Time Status CXRPORT [CHEST X-RAY PORTABLE*] [RAD] Stat Radiology 12/13/17 19:27 Completed Medical Decision Making - Medical Decision Making 12/13/17 21:52 All labs WNL 12/13/17 21:59 The heart size is within normal limits. The lung riggs are free of pulmonary infiltrates or pleural effusions. There are some increased interstitial markings and mild hyperaeration suggestive of mild COPD. Will speak to Dr. Junior for admit, 12/13/17 22:16 PAtient signed out to Dr. Ventura *DC/Admit/Observation/Transfer Diagnosis at time of Disposition: Fall - Referrals - Patient Instructions - Post Discharge Activity
--- NOTE | 2017-12-13 21:09 | PDOC ---
Attending Attestation - Resident Resident Name: Markel Reinoso - ED Attending Attestation I have performed the following: I have examined & evaluated the patient, The case was reviewed & discussed with the resident, I agree w/resident's findings & plan, Exceptions are as noted - HPI HPI: 12/13/17 22:24 Mr Shah is an 87 yo M with a history of severe COPD (not home O2 dependent) recent admission for pneumonia He presents to the ER today via EMS with his daughter due to feeling "sick" No fevers or chills No chest pain No palpitaitons no nausea or vomiting pt apparently was weak and fell at home this was unwitnessed Pt repeatedly tells me that he feels bad He attributes this to feeling like he can not breath - Physicial Exam PE: 12/13/17 23:16 On examination: Pt is awake and alert Speaking in complete sentences Breathing with pursed lips No tachycardia Prolonged expiratory phase, faint rhonchi No abd tenderness No lower extremity edema - Medical Decision Making 12/13/17 23:17 87 yo M with h/o severe COPD, presenting to the ER with a complaint of feeling sick vitals significant for hypothermia Pt is short of breath 12/13/17 23:19 Laboratory Tests 12/02/17 12/02/17 12/13/17 07:00 07:00 20:00 WBC 8.6 12.6 H D Hgb 8.5 L D 8.7 L Hct 27.6 L D 28.6 L Plt Count 262 310 BUN 26 H Creatinine 0.6 L Creatine Kinase Troponin I 12/13/17 12/13/17 20:00 20:00 WBC Hgb Hct Plt Count BUN 19 H D Creatinine 0.6 L Creatine Kinase 61 Troponin I < 0.02 EKG: SR, rate of 72 bpm, RBBB similar to prior EKG CXR: increased markings Pt given solumedrol and duo nebs Head CT pending (pt s/p unwitnessed fall) Call placed to Dr Junior Will admit to his service COPD exacerbation, initial presentation 12/14/17 01:36 Discharge Disposition - Diagnosis Fall, COPD exacerbation - Discharge Dispostion Condition at time of disposition: Stable Last Admission D/C Date: 12/03/17 Admit: Yes - Referrals - Patient Instructions - Post Discharge Activity
[2017-12-13 21:28] LABS: URINE APPEARANCE CLEAR; URINE BILIRUBIN NEGATIVE (NEGATIVE); URINE BLOOD NEGATIVE (NEGATIVE); URINE COLOR DKYELLOW; URINE GLUCOSE (UA) NEGATIVE (NEGATIVE); URINE KETONE TRACE (NEGATIVE); URINE LEUK ESTERASE NEGATIVE (NEGATIVE); URINE NITRITE NEGATIVE (NEGATIVE); URINE PROTEIN NEGATIVE (NEGATIVE)
[2017-12-13 21:30] LABS: ANISOCYTOSIS 1+; OVALOCYTE FEW; PLATELET ESTIMATE ADEQUATE; TARGET CELLS 1+
[2017-12-13] MEDS ORDERED: methylPREDNISolone NA SUCC 125 MG/2 ML VIAL IVPB ONE (22:16)
[2017-12-13] MEDS ORDERED: ALBUTEROL SO4 2.5/IPRATROPIUM 0.5 INH SOL 3 ML VIAL.NEB. NEB ONE ×2 (22:16→22:57)
[2017-12-13] MEDS ORDERED: AZITHROMYCIN IVPB 500 MG in DEXTROSE 5%-WATER - 250 ML IVPB ONE (22:24)
[2017-12-13] MEDS ORDERED: ALBUTEROL SO4 0.083% IH SOL 2.5 MG/3 ML VIAL.NEB. NEB PRN (22:33)
[2017-12-13] MEDS ORDERED: ACETAMINOPHEN 325 MG TABLET (FP) PO PRN (22:33)
[2017-12-13] MEDS ORDERED: methylPREDNISolone NA SUCC 40 MG/1 ML VIAL IVPB SCH (22:45)
[2017-12-13] MEDS ORDERED: AZITHROMYCIN IVPB 250 ML IVPB ONE (22:57)
[2017-12-13] MEDS ORDERED: methylPREDNISolone NA SUCC 125 MG/2 ML VIAL ONE (22:58)
[2017-12-14 00:33] LABS: VENOUS PH 7.34 (7.32-7.42)
[2017-12-14] MEDS ORDERED: methylPREDNISolone NA SUCC 40 MG/1 ML VIAL ONE (03:32)
[2017-12-14] MEDS: methylPREDNISolone NA SUCC 40 MG/1 ML VIAL IVPB SCH ×4 (03:39→21:22)
[2017-12-14 07:20] LABS: HEMOGLOBIN 8.5 GM/dL (11.7-16.9); MCH 20.5 pg (25.7-33.7); MCHC 30.4 g/dl (32.0-35.9); MEAN CELL VOLUME 67.5 fl (80-96); MEAN PLT VOLUME 6.8 fl (7.5-11.1); PLATELET COUNT 308 K/MM3 (134-434); RBC 4.15 M/mm3 (4.00-5.60); RDW 18.5 % (11.9-15.9); WHITE BLOOD COUNT 12.4 K/mm3 (4.0-10.0)
[2017-12-14 07:51] LABS: ANION GAP 6 (8-16); BLOOD UREA NITROGEN 14 mg/dL (7-18); CALCIUM 7.5 mg/dL (8.5-10.1); CHLORIDE 101 mmol/L (98-107); CO2 29 mmol/L (21-32); GLUCOSE,RANDOM 170 mg/dL (74-106); POTASSIUM 4.4 mmol/L (3.5-5.1); SODIUM 136 mmol/L (136-145)
[2017-12-14 08:20] LABS: CREATININE 0.6 mg/dL (0.7-1.3)
--- NOTE | 2017-12-14 09:51 | HP ---
Admitting History and Physical - Primary Care Physician PCP: Vivek Junior - Admission Chief Complaint: Fall. SOB History of Present Illness: Pt states that came to ER because he fall (unwitnessed) at home, unclear the cause of fall; pt states that he is fine and want to go home, he admits that restarted smoking. Per pt's son, Morgan ( called him to clarify the reason for ER visit), pt fell and passed out for few seconds ( he found his confused); pt lately is getting progressively more SOB; pt restarted smoking few days after left the hospital. History Source: Patient, Family Member, Medical Record (ER staff) Limitations to Obtaining History: No Limitations - Past Medical History Cardiovascular: Yes: HTN, Other (ASHD) Pulmonary: Yes: COPD, Other (current smoker) Renal/: Yes: Cancer (bladder cancer- transitional cell), Other (PAST PROSTATE CA) Endocrine: Yes: Diabetes Mellitus - Smoking History Smoking history: Current every day smoker Have you smoked in the past 12 months: Yes Aproximately how many cigarettes per day: 70 (70 years or more) - Alcohol/Substance Use Hx Alcohol Use: Yes (wine daily, whiskey as well) History of Substance Use: reports: None - Social History ADL: Independent 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 Travel: No Home Medications - Allergies Allergies/Adverse Reactions: Allergies Allergy/AdvReac Type Severity Reaction Status Date / Time No Known Allergies Allergy Verified 11/28/17 08:44 - Home Medications Home Medications: Ambulatory Orders Aspirin [Aspirin EC] 81 mg PO DAILY 11/27/17 Diltiazem HCl [Cartia Xt] 120 mg PO DAILY 11/27/17 Montelukast Sodium [Singulair] 10 mg PO DAILY 11/27/17 Acetaminophen [Tylenol .Regular Strength -] 650 mg PO Q6H PRN tablet 12/02/17 Albuterol 0.083% Nebulizer Jacque [Ventolin 0.083% Nebulizer Soln -] 1 neb NEB Q6H PRN #30 vial 12/02/17 Pantoprazole Sodium [Protonix -] 20 mg PO DAILY #20 tablet.ec 12/02/17 Umeclidinium Brm/Vilanterol Tr [Anoro Ellipta 62.5-25 Mcg INH] 1 each IH DAILY # 1 blst.w.dev MDD 1 12/03/17 Cefpodoxime Proxetil [Vantin -] 200 mg PO Q12H #10 tablet MDD 2 12/04/17 Family Disease History - Family Disease History Family Disease History: Other: Father (: unclear causes), Mother (: unclear causes), Brother (1, healthy), Sister (1, healthy), Son (3, 1 age 30 unclear causes), Daughter (2, 1 age 35 of unclear cancer) Review of Systems - Review of Systems Constitutional: denies: Chills, Fever Eyes: denies: Blurred Vision, Double Vision HENT: denies: Ear Discharge, Nasal Congestion, Throat Pain Neck: denies: Pain on Movement, Stiffness, Tenderness Cardiovascular: denies: Chest Pain, Edema, Palpitations Respiratory: reports: Cough, SOB on Exertion Gastrointestinal: denies: Abdominal Pain, Diarrhea, Nausea Genitourinary: denies: Burning, Discharge, Frequency Musculoskeletal: denies: Back Pain, Muscle Pain Integumentary: denies: Blister, Bruising Neurological: denies: Change in LOC, Change in Speech, Confusion, Dizziness, Headache, Incoordination, Numbness, Syncope, Unsteady Gait, Weakness Endocrine: denies: Excessive Sweating, Intolerance to Cold Hematology/Lymphatic: denies: Easily Bruised, Excessive Bleeding Psychiatric: denies: Altered Sleep Pattern, Anxiety Physical Examination Vital Signs: Vital Signs Temperature 97.2 F L 12/13/17 21:27 Pulse Rate 89 12/14/17 06:33 Respiratory Rate 18 12/14/17 06:33 Blood Pressure 120/71 12/14/17 06:33 O2 Sat by Pulse Oximetry (%) 100 12/14/17 06:33 Constitutional: Yes: Anxious (as wants to go home) Eyes: Yes: Conjunctiva Clear, EOM Intact, PERRL HENT: Yes: Normocephalic. No: Epistaxis, Pharyngeal Erythema, Rhinnorhea Neck: Yes: Trachea Midline. No: Lymphadenopathy, Thyromegaly Cardiovascular: Yes: Regular Rate and Rhythm, S1, S2 Respiratory: Yes: Regular. No: Rhonchi, Wheezes Gastrointestinal: Yes: Normal Bowel Sounds, Soft. No: Tenderness ...Rectal Exam: Yes: Deferred Renal/: No: CVA Tenderness - Left, CVA Tenderness - Right Musculoskeletal: No: Back Pain, Joint Stiffness, Joint Swelling Edema: No Neurological: Yes: Alert, Oriented, Cran Nerves II-XII Intact Psychiatric: Yes: Alert, Oriented Labs: CBC, BMP 12/14/17 06:45 12/14/17 06:45 Imaging - Results Chest X-ray: Report Reviewed Cat Scan: Report Reviewed Problem List - Problems (1) Acute exacerbation of chronic obstructive pulmonary disease (COPD) Code(s): J44.1 - CHRONIC OBSTRUCTIVE PULMONARY DISEASE W (ACUTE) EXACERBATION (2) Fall Code(s): W19.XXXA - UNSPECIFIED FALL, INITIAL ENCOUNTER (3) DM2 (diabetes mellitus, type 2) Code(s): E11.9 - TYPE 2 DIABETES MELLITUS WITHOUT COMPLICATIONS (4) HTN (hypertension) Code(s): I10 - ESSENTIAL (PRIMARY) HYPERTENSION Assessment/Plan Unclear if pt hit his head; Head CT scan is negative for acute event. IV Steroids Stop Smoking Pulmonary, Cardio, Neuro consult AM labs
[2017-12-14] MEDS: PANTOPRAZOLE 20 MG TABLET (FP) PO SCH (09:53)
[2017-12-14] MEDS: ASPIRIN COATED 81 MG TABLET.EC PO SCH (09:53)
[2017-12-14] MEDS ORDERED: PATIENT'S OWN MEDICATION (NON-FORMULARY) (Umeclidinium Brm/Vilanterol Tr [Anoro Ellipta 62 IH SCH (10:00)
--- NOTE | 2017-12-14 11:40 | EKG ---
Test Reason : Blood Pressure : / mmHG Vent. Rate : 072 BPM Atrial Rate : 072 BPM P-R Int : 112 ms QRS Dur : 126 ms QT Int : 434 ms P-R-T Axes : 067 080 068 degrees QTc Int : 475 ms NORMAL SINUS RHYTHM NON-SPECIFIC INTRA-VENTRICULAR CONDUCTION BLOCK ABNORMAL ECG WHEN COMPARED WITH ECG OF 28-NOV-2017 12:16, VENT. RATE HAS DECREASED BY 41 BPM NON-SPECIFIC INTRA-VENTRICULAR CONDUCTION BLOCK HAS REPLACED RIGHT BUNDLE BRANCH BLOCK Confirmed by JEWELL LEON MD ([id number]) on 12/14/2017 11:39:52 AM Referred By: Confirmed By:JEWELL LEON MD
[2017-12-14] MEDS: NICOTINE 21 MG/24 HOURS TOPICAL PATCH TD SCH (12:05)
--- NOTE | 2017-12-14 14:42 | CON.PULM ---
Consult Consult Specialty:: PULMONARY Referred by:: Dr. Junior Reason for Consultation:: shortness of breath - History of Present Illness Chief Complaint: s/p fall History of Present Illness: 87yo male with h/o HTN, DM, COPD, h/o bladder ca, current long time smoker who presents s/p fall without head trauma. No acute findings on CT head but noted to be severely short of breath by treating physician in the ER. Pt reports being short of breath for "months." +nonproductive cough and wheezing. No fevers , chills or sweats. States he only takes nebulizer treatments at home but Anoro listed on his home meds. He continues to smoke 2 PPD, started in his teens. 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 Had a CT chest done in Nov 2017 which shows a spiculated RUL mass with emphysematous changes and other scattered nodules which have been stable since 2016. - History Source History Provided By: Patient, Medical Record Limitations to Obtaining History: Clinical Condition - Past Medical History Cardio/Vascular: Yes: HTN, Other (ASHD/SMOKER) Pulmonary: Yes: COPD Renal/: Yes: Cancer (bladder cancer- transitional cell), Other (PAST PROSTATE CA) Endocrine: Yes: Diabetes Mellitus - Alcohol/Substance Use Hx Alcohol Use: Yes (wine daily, whiskey as well) History of Substance Use: reports: None - Smoking History Smoking history: Current every day smoker Have you smoked in the past 12 months: Yes Aproximately how many cigarettes per day: 40 - Social History Usual Living Arrangement: With Child ADL: Independent 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 Travel: No Home Medications - Allergies Allergies/Adverse Reactions: Allergies Allergy/AdvReac Type Severity Reaction Status Date / Time No Known Allergies Allergy Verified 11/28/17 08:44 - Home Medications Home Medications: Ambulatory Orders Aspirin [Aspirin EC] 81 mg PO DAILY 11/27/17 Diltiazem HCl [Cartia Xt] 120 mg PO DAILY 11/27/17 Montelukast Sodium [Singulair] 10 mg PO DAILY 11/27/17 Acetaminophen [Tylenol .Regular Strength -] 650 mg PO Q6H PRN tablet 12/02/17 Albuterol 0.083% Nebulizer Jacque [Ventolin 0.083% Nebulizer Soln -] 1 neb NEB Q6H PRN #30 vial 12/02/17 Pantoprazole Sodium [Protonix -] 20 mg PO DAILY #20 tablet.ec 12/02/17 Umeclidinium Brm/Vilanterol Tr [Anoro Ellipta 62.5-25 Mcg INH] 1 each IH DAILY # 1 blst.w.dev MDD 1 12/03/17 Cefpodoxime Proxetil [Vantin -] 200 mg PO Q12H #10 tablet MDD 2 12/04/17 Family Disease History - Family Disease History Family Disease History: Other: Father (: unclear causes), Mother (: unclear causes), Brother (1, healthy), Sister (1, healthy), Son (3, 1 age 30 unclear causes), Daughter (2, 1 age 35 of unclear cancer) Review of Systems - Review of Systems Constitutional: reports: Weakness Eyes: denies: Recent Change in Vision HENT: denies: Nasal Congestion, Throat Pain Neck: denies: Stiffness, Tenderness Cardiovascular: reports: Shortness of Breath Respiratory: reports: Cough, Wheezing. denies: Hemoptysis Gastrointestinal: denies: Abdominal Pain, Nausea, Vomiting Genitourinary: denies: Dysuria, Hematuria Neurological: denies: Dizziness, Headache Physical Exam Vital Sings: Vital Signs Temperature 98.6 F 12/14/17 13:24 Pulse Rate 98 H 12/14/17 13:24 Respiratory Rate 18 12/14/17 13:24 Blood Pressure 106/89 12/14/17 13:24 O2 Sat by Pulse Oximetry (%) 98 12/14/17 13:24 Constitutional: Yes: Mild Distress Eyes: Yes: Conjunctiva Clear, EOM Intact HENT: Yes: Atraumatic, Normocephalic Neck: Yes: Supple, Trachea Midline Cardiovascular: Yes: Regular Rate and Rhythm Respiratory: Yes: Poor Air Entry, Wheezes ...Clubbing: No Gastrointestinal: Yes: Normal Bowel Sounds, Soft. No: Tenderness Edema: No Neurological: Yes: Alert, Oriented Labs: CBC, BMP 12/14/17 06:45 12/14/17 06:45 ABG Results ABG pH Cancelled 12/13/17 23:45 ABG pCO2 at Pt Temp Cancelled 12/13/17 23:45 ABG pO2 at Pt Temp Cancelled 12/13/17 23:45 ABG HCO3 Cancelled 12/13/17 23:45 ABG O2 Sat (Measured) Cancelled 12/13/17 23:45 ABG O2 Content Cancelled 12/13/17 23:45 ABG Base Excess Cancelled 12/13/17 23:45 Imaging - Results Chest X-ray: Report Reviewed, Image Reviewed Cat Scan: Report Reviewed, Image Reviewed Problem List - Problems (1) Acute exacerbation of chronic obstructive pulmonary disease (COPD) Code(s): J44.1 - CHRONIC OBSTRUCTIVE PULMONARY DISEASE W (ACUTE) EXACERBATION (2) DM2 (diabetes mellitus, type 2) Code(s): E11.9 - TYPE 2 DIABETES MELLITUS WITHOUT COMPLICATIONS (3) HTN (hypertension) Code(s): I10 - ESSENTIAL (PRIMARY) HYPERTENSION (4) Emphysema of lung Code(s): J43.9 - EMPHYSEMA, UNSPECIFIED Assessment/Plan s/p Fall Acute COPD Exacerbation Emphysema Lung Mass HTN DM Heavy Smoker - IV medrol - inhaled bronchodilators standing and PRN - O2 to keep SpO2 >90% - would obtain outpt PET scan if not done already - encourage smoking cessation - DVT prophylaxis Thank you for this consult Dylan Edmonds MD
[2017-12-14 15:13] VITALS: BMI 18.6
[2017-12-14] MEDS: ALBUTEROL SO4 2.5/IPRATROPIUM 0.5 INH SOL 3 ML VIAL.NEB. NEB SCH ×2 (15:36→20:39)
[2017-12-14] MEDS: MONTELUKAST NA 10 MG TABLET PO SCH ×2 (16:03→21:22)
[2017-12-14] MEDS: NICOTINE POLACRILEX 4 MG GUM BUC PRN ×2 (17:54→22:30)
[2017-12-14] MEDS ORDERED: SENNOSIDES 8.6MG TABLET (FP) PO ONE (21:00)
[2017-12-14] MEDS ORDERED: DOCUSATE SODIUM 100 MG CAPSULE (FP) PO ONE (21:00)
[2017-12-14] MEDS ORDERED: INSULIN (NOVOLOG) ASPART 100 UNITS/ML 10ML VIAL ONE (22:09)
[2017-12-14] MEDS ORDERED: INSULIN (NOVOLOG) ASPART 100 UNITS/ML 10ML VIAL SQ ONE (22:15)
[2017-12-15] MEDS: methylPREDNISolone NA SUCC 40 MG/1 ML VIAL IVPB SCH ×2 (02:21→09:41)
[2017-12-15] MEDS ORDERED: INSULIN SLIDING SCALE (NOVOLOG) 1 VIAL SQ SCH (07:00)
[2017-12-15 07:20] LABS: HEMATOCRIT 25.8 % (35.4-49); HEMOGLOBIN 7.9 GM/dL (11.7-16.9); MCH 20.6 pg (25.7-33.7); MCHC 30.7 g/dl (32.0-35.9); MEAN CELL VOLUME 67.1 fl (80-96); MEAN PLT VOLUME 7.1 fl (7.5-11.1); PLATELET COUNT 311 K/MM3 (134-434); RBC 3.85 M/mm3 (4.00-5.60); RDW 18.2 % (11.9-15.9); WHITE BLOOD COUNT 14.3 K/mm3 (4.0-10.0)
[2017-12-15] MEDS: ALBUTEROL SO4 2.5/IPRATROPIUM 0.5 INH SOL 3 ML VIAL.NEB. NEB SCH ×2 (07:41→12:16)
[2017-12-15 08:02] LABS: ANION GAP 11 (8-16); BLOOD UREA NITROGEN 21 mg/dL (7-18); CALCIUM 8.1 mg/dL (8.5-10.1); CHLORIDE 101 mmol/L (98-107); CO2 25 mmol/L (21-32); CREATININE 0.6 mg/dL (0.7-1.3); GLUCOSE,RANDOM 231 mg/dL (74-106); SODIUM 137 mmol/L (136-145)
[2017-12-15] MEDS ORDERED: PT OWN MED DRAWER 7, Y5N ONE (09:19)
[2017-12-15] MEDS: ASPIRIN COATED 81 MG TABLET.EC PO SCH (09:41)
[2017-12-15] MEDS: PANTOPRAZOLE 20 MG TABLET (FP) PO SCH (09:41)
[2017-12-15] MEDS: NICOTINE 21 MG/24 HOURS TOPICAL PATCH TD SCH (09:42)
[2017-12-15 09:47] VITALS: BP 111/53; PULSE 95; TEMP 98.1
--- NOTE | 2017-12-15 09:58 | CONSULT ---
Consult - text type - Consultation Consultation Note: Neurology Admitting History and Physical History of Present Illness: 87 y/o M with HTN, COPD, Bladder CA, DM, who came to ER due to fall at home, unclear etiology and no focal deficits. He is currently without complaints and CT head completed and did not show any structural abnormalities. Is ambulating with and was without ataxia but spoke to nurse and he seemed unsteady earlier getting of bed. Admitted for further syncope workup, neurologically appears to be at baseline. 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 Travel: No Home Medications - Allergies Allergies/Adverse Reactions: Allergies Allergy/AdvReac Type Severity Reaction Status Date / Time No Known Allergies Allergy Verified 11/28/17 08:44 - Home Medications Home Medications: Ambulatory Orders Aspirin [Aspirin EC] 81 mg PO DAILY 11/27/17 Diltiazem HCl [Cartia Xt] 120 mg PO DAILY 11/27/17 Montelukast Sodium [Singulair] 10 mg PO DAILY 11/27/17 Acetaminophen [Tylenol .Regular Strength -] 650 mg PO Q6H PRN tablet 12/02/17 Albuterol 0.083% Nebulizer Jacque [Ventolin 0.083% Nebulizer Soln -] 1 neb NEB Q6H PRN #30 vial 12/02/17 Pantoprazole Sodium [Protonix -] 20 mg PO DAILY #20 tablet.ec 12/02/17 Umeclidinium Brm/Vilanterol Tr [Anoro Ellipta 62.5-25 Mcg INH] 1 each IH DAILY # 1 blst.w.dev MDD 1 12/03/17 Cefpodoxime Proxetil [Vantin -] 200 mg PO Q12H #10 tablet MDD 2 12/04/17 Family Disease History - Family Disease History Family Disease History: Other: Father (: unclear causes), Mother (: unclear causes), Brother (1, healthy), Sister (1, healthy), Son (3, 1 age 30 unclear causes), Daughter (2, 1 age 35 of unclear cancer) Review of Systems - Review of Systems Constitutional: denies: Chills, Fever Eyes: denies: Blurred Vision, Double Vision HENT: denies: Ear Discharge, Nasal Congestion, Throat Pain Neck: denies: Pain on Movement, Stiffness, Tenderness Cardiovascular: denies: Chest Pain, Edema, Palpitations Respiratory: reports: Cough, SOB on Exertion Gastrointestinal: denies: Abdominal Pain, Diarrhea, Nausea Genitourinary: denies: Burning, Discharge, Frequency Musculoskeletal: denies: Back Pain, Muscle Pain Integumentary: denies: Blister, Bruising Neurological: denies: Change in LOC, Change in Speech, Confusion, Dizziness, Headache, Incoordination, Numbness, Syncope, Unsteady Gait, Weakness Endocrine: denies: Excessive Sweating, Intolerance to Cold Hematology/Lymphatic: denies: Easily Bruised, Excessive Bleeding Psychiatric: denies: Altered Sleep Pattern, Anxiety Physical Examination Vital Signs Temperature 98.1 F 12/15/17 09:47 Pulse Rate 95 H 12/15/17 09:47 Respiratory Rate 18 12/15/17 09:47 Blood Pressure 111/53 12/15/17 09:47 O2 Sat by Pulse Oximetry (%) 95 12/14/17 21:00 Constitutional: Yes: Anxious (as wants to go home) Eyes: Yes: Conjunctiva Clear, EOM Intact, PERRL HENT: Yes: Normocephalic. No: Epistaxis, Pharyngeal Erythema, Rhinnorhea Neck: Yes: Trachea Midline. No: Lymphadenopathy, Thyromegaly Cardiovascular: Yes: Regular Rate and Rhythm, S1, S2 Respiratory: Yes: Regular. No: Rhonchi, Wheezes Gastrointestinal: Yes: Normal Bowel Sounds, Soft. No: Tenderness ...Rectal Exam: Yes: Deferred Renal/: No: CVA Tenderness - Left, CVA Tenderness - Right Musculoskeletal: No: Back Pain, Joint Stiffness, Joint Swelling Edema: No Neurological: Yes: Alert, Oriented, Cran Nerves II-XII Intact, sensory intact, strength equal, no ataxia Psychiatric: Yes: Alert, Oriented CBCD WBC 14.3 K/mm3 (4.0-10.0) H 12/15/17 06:15 RBC 3.85 M/mm3 (4.00-5.60) L 12/15/17 06:15 Hgb 7.9 GM/dL (11.7-16.9) L 12/15/17 06:15 Hct 25.8 % (35.4-49) L 12/15/17 06:15 MCV 67.1 fl (80-96) L 12/15/17 06:15 MCHC 30.7 g/dl (32.0-35.9) L 12/15/17 06:15 RDW 18.2 % (11.9-15.9) H 12/15/17 06:15 Plt Count 311 K/MM3 (134-434) 12/15/17 06:15 MPV 7.1 fl (7.5-11.1) L 12/15/17 06:15 CMP Sodium 137 mmol/L (136-145) 12/15/17 06:15 Potassium 4.0 mmol/L (3.5-5.1) 12/15/17 06:15 Chloride 101 mmol/L (98-107) 12/15/17 06:15 Carbon Dioxide 25 mmol/L (21-32) 12/15/17 06:15 Anion Gap 11 (8-16) 12/15/17 06:15 BUN 21 mg/dL (7-18) H D 12/15/17 06:15 Creatinine 0.6 mg/dL (0.7-1.3) L 12/15/17 06:15 Creat Clearance w eGFR > 60 (>60) 12/13/17 20:00 Calcium 8.1 mg/dL (8.5-10.1) L 12/15/17 06:15 Total Bilirubin 0.3 mg/dL (0.2-1.0) D 12/13/17 20:00 AST 18 U/L (15-37) 12/13/17 20:00 ALT 38 U/L (12-78) 12/13/17 20:00 Alkaline Phosphatase 96 U/L (45-117) D 12/13/17 20:00 Total Protein 6.2 g/dl (6.4-8.2) L 12/13/17 20:00 Albumin 3.1 g/dl (3.4-5.0) L 12/13/17 20:00 Imaging - Results Chest X-ray: Report Reviewed Cat Scan: Report Reviewed Plan: 87 y/o M with HTN, COPD, Bladder CA, DM, who came to ER due to fall at home, unclear etiology and no focal deficits. He is currently without complaints and CT head completed and did not show any structural abnormalities. Is ambulating with and was without ataxia but spoke to nurse and he seemed unsteady earlier getting of bed. Admitted for further syncope workup, neurologically appears to be at baseline. Would check for orthostatics, cardiac workup. Recommended increased hydration. Monitor ambulating, consider physical therapy. May benefit from assistive device if therapist recommends this. Don't think he will need rehab but again will defer to therapist. Continue BP monitoring, maintain normotensive range. Tight glycemic control for DM. Fall precautions.
--- NOTE | 2017-12-15 10:52 | PN ---
Progress Note, Physician History of Present Illness: Pt w/o fever, chills, SOB, LEARY, CP, palpitations, dizziness. Pt w/o N, V, diarrhea, abd pain. Pt wants to go home states that is felling OK - Current Medication List Current Medications: Active Medications Acetaminophen (Tylenol -) 650 mg PO Q6H PRN PRN Reason: PAIN LEVEL 4 - 6 Albuterol Sulfate (Ventolin 0.083% Nebulizer Soln -) 1 amp NEB Q6H PRN PRN Reason: WHEEZING Albuterol/Ipratropium (Duoneb -) 1 amp NEB RQID [facility] Last Admin: 12/15/17 07:41 Dose: 1 amp Aspirin (Ecotrin -) 81 mg PO DAILY [facility] Last Admin: 12/15/17 09:41 Dose: 81 mg Diltiazem HCl (Cardizem Cd -) 120 mg PO DAILY [facility] Last Admin: 12/15/17 09:42 Dose: 120 mg Insulin Aspart (Novolog Vial Sliding Scale -) 1 vial SQ BIDAC [facility] PRN Reason: Protocol Last Admin: 12/15/17 06:29 Dose: 4 units Methylprednisolone Sodium Succinate (Solu-Medrol -) 40 mg IVPB Q6H-IV [facility] Last Admin: 12/15/17 09:41 Dose: 40 mg Montelukast Sodium (Singulair -) 10 mg PO HS [facility] Last Admin: 12/14/17 21:22 Dose: 10 mg Nicotine (Nicoderm Patch -) 21 mg TD DAILY [facility] Last Admin: 12/15/17 09:42 Dose: 21 mg Nicotine Polacrilex (Nicorette Gum -) 4 mg BUC Q2H PRN PRN Reason: NICOTINE REPLACEMENT RX Last Admin: 12/14/17 22:30 Dose: 4 mg Pantoprazole Sodium (Protonix -) 20 mg PO DAILY [facility] Last Admin: 12/15/17 09:41 Dose: 20 mg - Objective Vital Signs: Vital Signs Temperature 98.1 F 12/15/17 09:47 Pulse Rate 95 H 12/15/17 09:47 Respiratory Rate 18 12/15/17 09:47 Blood Pressure 111/53 12/15/17 09:47 O2 Sat by Pulse Oximetry (%) 95 12/14/17 21:00 Constitutional: Yes: Anxious Cardiovascular: Yes: Regular Rate and Rhythm, S1, S2 Respiratory: Yes: Regular, Rhonchi Gastrointestinal: Yes: Normal Bowel Sounds, Soft. No: Tenderness Edema: No Neurological: Yes: Alert, Oriented, Other (symmetric motor and sensory exam in UE/ LE/ face) Labs: CBC, BMP 12/15/17 06:15 12/15/17 06:15 Problem List - Problems (1) Acute exacerbation of chronic obstructive pulmonary disease (COPD) Code(s): J44.1 - CHRONIC OBSTRUCTIVE PULMONARY DISEASE W (ACUTE) EXACERBATION (2) Fall Code(s): W19.XXXA - UNSPECIFIED FALL, INITIAL ENCOUNTER (3) DM2 (diabetes mellitus, type 2) Code(s): E11.9 - TYPE 2 DIABETES MELLITUS WITHOUT COMPLICATIONS (4) HTN (hypertension) Code(s): I10 - ESSENTIAL (PRIMARY) HYPERTENSION (5) Anxiety Code(s): F41.9 - ANXIETY DISORDER, UNSPECIFIED Assessment/Plan Unclear if pt hit his head; Head CT scan is negative for acute event. IV Steroids-to be sailaja per Pulmonary Stop Smoking Trial of Xanax Pulmonary, Neuro consult appreciated AM labs
[2017-12-15] MEDS ORDERED: ALPRAZolam 0.25 MG TABLET PO PRN (11:10)
[2017-12-15] MEDS: NICOTINE POLACRILEX 4 MG GUM BUC PRN (11:18)
--- NOTE | 2017-12-15 11:27 | PN ---
Progress Note (short form) - Note Progress Note: PULMONARY VSS/AFEBRILE AMBULATING IN [facility] OFFERS NO COMPLAINTS WANTS TO GO HOME ANICTERIC CHEST DISTANT /CLEAR S1S2 BS+ NO EDEMA NO FOCAL NEURO FINDINGS LABS/MEDS/NOTES/IMAGES/MEDS REVIEWED s/p Fall COPD /Emphysema Lung Mass stable via ct chest HTN DM Heavy Smoker - IV medrol discontinued - inhaled bronchodilators standing and PRN - O2 to keep SpO2 >90% - would obtain outpt PET scan if not done already - encourage smoking cessation - DVT prophylaxis - Discharge planning for today Anaid THORPE MD
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
--- NOTE | 2017-12-15 16:44 | CONS ---
DATE OF CONSULTATION: DATE OF DICTATION: 12/15/2017 CARDIOLOGY CONSULTATION REQUESTING PHYSICIAN: Vivek Junior M.D. HISTORY OF PRESENT ILLNESS: An 87-year-old [place]ian gentleman who is unable to provide a proper history on reviewing his hospital records and previous consultation. He has longstanding history of chronic obstructive pulmonary disease, chronic bronchitis, chest pain syndrome compatible with coronary artery disease, angina pectoris, history of memory loss compatible with dementia, history of tobacco abuse and poor compliance. Patient according to the emergency note was admitted with a fall. There is no known history of loss of consciousness, seizures, or syncope. Patient is unable to provide a history. On questioning, he denied having chest pain or discomfort, either at rest or with exertion, no history of paroxysmal nocturnal dyspnea or orthopnea reported, no palpitations, lightheadedness, dizziness reported. PAST HISTORY: 1. As mentioned in the history of present illness. 2. 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 3. History of prostatic and bladder carcinoma. 4. History of peptic ulcer disease. 5. History of cardiopulmonary arrest, January 2015 while undergoing a urological procedure which apparently may have been precipitated by Versed and Toradol and required hospitalization. SURGICAL HISTORY: 1. Status post surgery for peptic ulcer disease. 2. See history of present illness. 3. No other surgical history is available. FAMILY HISTORY: Family history from office records, father in his 80s. Mother when he was 5 years old. Causes of the demise is not known. He has a brother and a sister and 3 step brothers and sisters. Two of the stepbrothers are , and his sister in her 40s apparently related to lymphatic tumor. 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 Has 2 sons and 3 daughters. One of the sons at the age of 35 apparently to organic brain syndrome. Heavy smoker since teenage and used to smoke 4-5 packs of cigarettes per day and according to the previous history, he was smoking 2 packs of cigarettes recently. Drinks 4-5 cups of coffee, and does have a drink. ALLERGIES: None recorded. MEDICATION: 1. Nicotine patch 21 mg daily. 2. Nicorette gum 4 mg q.2 p.r.n. 3. Xanax 0.25 mg q.6 p.r.n. 4. Albuterol via nebulizer 1 ampule q.6 p.r.n. 5. DuoNeb 1 ampule q.i.d. 6. Diltiazem extended release 120 mg daily. 7. Novolog insulin via sliding scale. 8. Singulair 10 mg p.o. daily. 9. Aspirin 81 mg p.o. daily. 10. Protonix 20 mg p.o. daily. REVIEW OF SYSTEMS: Constitutional: No history of chills, fever, or night sweats or weight loss has been reported or documented. HEENT: Unable to obtain any credible information. Cardiovascular: See history of present illness. Respiratory: See history of present illness. Gastrointestinal: History of peptic ulcer disease. No history of nausea, vomiting, melena reported. Central nervous system: See history of present illness. Genitourinary: See history of present illness. PHYSICAL EXAMINATION: General: An 87-year-old gentleman was agitated, easily excitable, insisting on going home. No pallor, cyanosis, clubbing or jaundice noted. Vital signs: Weight 122 pounds and 4.8 ounces, blood pressure 190/53 mmHg, pulse 88 beats per minute and regular, temperature 97.5 degrees Fahrenheit, respirations 20 per minute, oxygen saturation 94% on nasal cannula. Neck: Supple. No jugulovenous distention, carotids were equal and upstrokes were normal. No bruits were heard, and no thyromegaly was present. Heart: PMI was in the 5th intercostal space, heart sounds were distant. No murmur or gallops were heard. Lungs: Scattered crepitation involving the left lung anteriorly. Right lung was grossly clear. There were decreased breath sounds. Abdomen: Soft, nontender, no hepatosplenomegaly or palpable masses were felt. There was an epigastric surgical scar. Bowel sounds were present. No bruits were appreciated. Extremities: No calf tenderness or dependent edema, femoral pulses were 2+, right dorsalis pedis pulse was 1+, left dorsalis pedis pulse was not palpable. Posterior tibial pulses were weak. LABORATORY DATA: 1. X-ray chest. Impression: Mild COPD, no acute pathology. 2. ECG December 13, 2017. Sinus rhythm, right bundle branch block, cannot exclude left posterior hemiblock, upward curving of ST segments in II, III, AVF, compatible with early repolarization, possibility of injury cannot be excluded. There were baseline artifacts recorded. 3. CBC, December 15, 2017. WBC count 14,300. Microcytic disease. Platelet count 311,000. 4. Chemistry on December 15, 2017. Sodium 137, potassium 4.0, chloride 101, CO2 of 25 mmol/L, BUN 21, creatinine 0.6 mg/dL. Random glucose 231 mg/dL. Calcium 8.1 mg/dL. 5. Arterial blood gases December 13, 2017: pH 7.34, pCO2 of 52, pO2 of 29. Bicarbonate 27.3. IMPRESSION: 1. History of coronary artery disease, angina pectoris. 2. Chronic obstructive pulmonary disease/chronic bronchitis. 3. Hypertension. 4. Hypercholesterolemia. 5. Tobacco abuse. 6. 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 7. Tobacco abuse. RECOMMENDATION: 1. Follow up ECG and troponin levels. 2. Continue current antihypertensive and antianginal medications. 3. Tried to contact family members, but there was no response. 4. Cessation of smoking remains of paramount importance. 5. Neurological evaluation for possible dementia. Prognosis guarded. Thank you for your referral. Yours sincerely, IAN ARORA M.D. [id number]
== END 2017-12-15 14:36 | disposition home or self-care (01) | DRG 191 ==
LOC: JER 18:45 → JERBED 23:21 → UNDOADMIN 23:57 → JERBED 23:57 → J7W 12-14 13:39
PROVIDERS: ADMIT Specialist; ATTEND Specialist
DX: J44.1 Chronic obstructive pulmonary disease with (acute) exacerbation (principal); I45.2 Bifascicular block; E11.9 Type 2 diabetes mellitus without complications; I10 Essential (primary) hypertension; Z85.51 Personal history of malignant neoplasm of bladder; F17.210 Nicotine dependence, cigarettes, uncomplicated; Z87.11 Personal history of peptic ulcer disease; R68.0 Hypothermia, not associated with low environmental temperature; I25.10 Atherosclerotic heart disease of native coronary artery without angina pectoris; Z85.46 Personal history of malignant neoplasm of prostate; F10.10 Alcohol abuse, uncomplicated
CPT/HCPCS: 36415; 36600; 70450-TC; 71045-TC-FY; 80048; 80053; 81003; 82550; 82803; 82962; 84484; 85025; 85027; 87040; 87086; 93005; 93010; 94640; 99285-25

== ENCOUNTER 2018-05-29 15:22 | Inpatient (IN) | payer OTHER ==
[2018-05-29 15:33] VITALS: BMI 20.8
--- NOTE | 2018-05-29 15:36 | PDOC ---
Rapid Medical Evaluation Chief Complaint: Blood Transfusion Time Seen by Provider: 05/29/18 15:30 Medical Evaluation: Allergies Allergy/AdvReac Type Severity Reaction Status Date / Time No Known Allergies Allergy Verified 11/28/17 08:44 05/29/18 15:31 I have performed a brief in-person evaluation of this patient. The patient presents with a chief complaint of: sent by dR rupal munson blood transfusion Pertinent physical exam findings: Pale, Quiet I have ordered the following: CBC, CMP type and Screen The patient will proceed to the ED for further evaluation.
[2018-05-29 16:45] LABS: MCHC 28.1 g/dl (32.0-35.9); MEAN CELL VOLUME 54.9 fl (80-96); MEAN PLT VOLUME 8.4 fl (7.5-11.1); PLATELET COUNT 805 K/MM3 (134-434); RBC 3.51 M/mm3 (4.00-5.60)
[2018-05-29 16:56] LABS: MCH 15.4 pg (25.7-33.7)
[2018-05-29 17:00] LABS: HEMATOCRIT 19.3 % (35.4-49); HEMOGLOBIN 5.4 GM/dL (11.7-16.9)
[2018-05-29 17:01] LABS: ADD RBC MORPHOLOGY YES
[2018-05-29 17:06] LABS: INR 1.12 (0.83-1.09); PROTHROMBIN TIME (PATIENT) 12.7 SEC (9.7-13.0)
[2018-05-29 17:19] LABS: ALBUMIN 3.2 g/dl (3.4-5.0); ALK PHOS 101 U/L (45-117); ANION GAP 8 (8-16); BILIRUBIN,TOTAL 0.3 mg/dL (0.2-1.0); BLOOD UREA NITROGEN 18 mg/dL (7-18); CALCIUM 8.1 mg/dL (8.5-10.1); CHLORIDE 105 mmol/L (98-107); CO2 29 mmol/L (21-32); CREATININE 0.6 mg/dL (0.7-1.3); GLUCOSE,RANDOM 93 mg/dL (74-106); POTASSIUM 4.2 mmol/L (3.5-5.1); SGOT/AST 8 U/L (15-37); SGPT/ALT 14 U/L (12-78); SODIUM 142 mmol/L (136-145); TOT PROT 6.4 g/dl (6.4-8.2)
--- NOTE | 2018-05-29 17:26 | PDOC ---
History of Present Illness - General Chief Complaint: Blood Transfusion Stated Complaint: BLOOD TRANSFUSION Time Seen by Provider: 05/29/18 15:30 - History of Present Illness Initial Comments: 05/29/18 17:53 The patient is a 87 year old male, with a significant past medical history of COPD (not on home O2), HTN, DM, asthma, bladder CA, heavy tobacco use, and a history of respiratory arrest, who presents to the emergency department with lightheadedness today and a reported hemoglobin of 7.[address] Junior. He denies bleeding or dark, bloody stools. The patient denies chest pain, shortness of breath, headache. The patient denies fever, chills, nausea, vomit, diarrhea and constipation.The patient denies dysuria, frequency, urgency and hematuria. Allergies: NKDA Past surgical history: abdominal Sx for peptic ulcer PCP - Dr. Junior Rn Employee Health: Dr. Orellana Past History - Past Medical History Allergies/Adverse Reactions: Allergies Allergy/AdvReac Type Severity Reaction Status Date / Time No Known Allergies Allergy Verified 05/29/18 15:33 Home Medications: Ambulatory Orders Montelukast Sodium [Singulair] 10 mg PO DAILY 05/29/18 Asthma: Yes Cancer: No COPD: Yes (EMPHYSEMA; RESPIRATORY ARREST S/P CYSTO) Diabetes: No (LOW BL.SUGAR) - Surgical History Abdominal Surgery: Yes (STOMACH ULCER) - Immunization History Immunization Up to Date: Yes - Suicide/Smoking/Psychosocial Hx Smoking History: Current some day smoker Have you smoked in the past 12 months: Yes Number of Cigarettes Smoked Daily: 70 Information on smoking cessation initiated: No 'Breaking Loose' booklet given: 12/14/17 Hx Alcohol Use: No Drug/Substance Use Hx: No Substance Use Type: None Hx Substance Use Treatment: No Review of Systems - Review of Systems Comments:: 05/29/18 17:54 GENERAL/CONSTITUTIONAL: No fever or chills. No weakness. +lightheadedness HEAD, EYES, EARS, NOSE AND THROAT: No change in vision. No ear pain or discharge. No sore throat. GASTROINTESTINAL: No nausea, vomiting, diarrhea or constipation. GENITOURINARY: No dysuria, frequency, or change in urination. CARDIOVASCULAR: No chest pain or shortness of breath. RESPIRATORY: No cough, wheezing, or hemoptysis. MUSCULOSKELETAL: No joint or muscle swelling or pain. No neck or back pain. SKIN: No rash NEUROLOGIC: No headache, vertigo, loss of consciousness, or change in strength/ sensation. ENDOCRINE: No increased thirst. No abnormal weight change. HEMATOLOGIC/LYMPHATIC: No anemia, easy bleeding, or history of blood clots. ALLERGIC/IMMUNOLOGIC: No hives or skin allergy. *Physical Exam - Vital Signs Last Vital Signs Temp Pulse Resp BP Pulse Ox 98.7 F 99 H 20 107/50 98 05/29/18 15:28 05/29/18 15:28 05/29/18 15:28 05/29/18 15:28 05/29/18 15:28 - Physical Exam Comments: 05/29/18 17:54 GENERAL: Awake, alert, and fully oriented, in no acute distress. Pale. HEAD: No signs of trauma EYES: PERRLA, EOMI, sclera anicteric, conjunctiva clear ENT: Auricles normal inspection, hearing grossly normal, nares patent, oropharynx clear without exudates. Moist mucosa NECK: Normal ROM, supple, no lymphadenopathy, JVD, or masses LUNGS: Breath sounds equal, clear to auscultation bilaterally. No wheezes, and no crackles HEART: Regular rate and rhythm, normal S1 and S2, no murmurs, rubs or gallops ABDOMEN: Soft, nontender, normoactive bowel sounds. No guarding, no rebound. No masses RECTAL: brown stool in vault, no bleeding EXTREMITIES: Normal range of motion, no edema. No clubbing or cyanosis. No cords , erythema, or tenderness BACK: No midline spinal tenderness in cervical/thoracic/lumbar region NEUROLOGICAL: Normal speech, cranial nerves intact, negative pronator drift, 5/ 5 strength in all 4 extremities, normal sensation to light touch in all 4 extremities, normal cerebellar exam, normal gait, normal reflexes and tone SKIN: Warm, Dry, normal turgor, no rashes or lesions noted." ED Treatment Course - LABORATORY CBC & Chemistry Diagram: 05/29/18 15:58 05/29/18 15:58 - ADDITIONAL ORDERS Additional order review: Laboratory Results 05/29/18 05/29/18 15:58 15:58 PT with INR 12.70 INR 1.12 H Crossmatch See Detail 05/29/18 15:58 RBC 3.51 L MCV 54.9 L MCHC 28.1 L RDW 24.0 H MPV 8.4 D Neutrophils % No Result Required. Lymphocytes % No Result Required. Medical Decision Making - Medical Decision Making 05/29/18 17:25 87yo M hx CAD, COPD presents to the ED with anemia on outpt labs. Pt reports lightheadedness. Vitals with borderline tachycardia (99) and borderline hypotension (100s systolic). Stool occult pending, brown stool. Hgb here 5.4. Etiology of anemia unclear. Will transfuse and admit. 05/29/18 18:[address] Danny Junior, who accepts pt for admission Case discussed in detail with admitting physician including history, physical exam and ancillary studies. Admitting physician has assumed care for the patient, will follow all pending diagnostics and will complete the evaluation and treatment. *DC/Admit/Observation/Transfer Diagnosis at time of Disposition: Anemia - Discharge Dispostion Condition at time of disposition: Stable Decision to Admit order: Yes - Referrals - Patient Instructions - Post Discharge Activity - Attestations Physician Attestion: 05/29/18 18:09 I, Dr. Dinora Deluca MD, attest that this document has been prepared under my direction and personally reviewed by me in its entirety. I further attest, that it accurately reflects all work, treatment, procedures and medical decision -making performed by me.
[2018-05-29 19:21] LABS: ANISOCYTOSIS 3+; MACROCYTOSIS 1+; OVALOCYTE 1+; PLATELET ESTIMATE MOD INCREASED
--- NOTE | 2018-05-29 21:39 | HP ---
Admitting History and Physical - Primary Care Physician PCP: Dary Junior S - Admission Chief Complaint: anemia, weakness History of Present Illness: The patient is a 87 year old male, with a significant past medical history of COPD (not on home O2), HTN, DM, asthma, bladder CA, heavy tobacco use, and a history of respiratory arrest, who presents to the emergency department with lightheadedness today and a reported hemoglobin of 7.[address] records. He denies bleeding or dark, bloody stools. Has chronic dry cough, some SOB and LEARY, chronic R sided CP with dry cough; seen by heme onc and pulm in the past. The patient denies dizziness or headache. The patient denies fever, chills, nausea, vomit, diarrhea and constipation.The patient denies dysuria, frequency, urgency and hematuria. no falls or trauma; at bedside per pt still smokes a lot and is not willing to stop; advised in the past to stop smoking but pt not willing to. History Source: Patient, Family Member, Medical Record Limitations to Obtaining History: No Limitations - Past Medical History Cardiovascular: Yes: HTN, Other (ASHD) Pulmonary: Yes: COPD, Other (current smoker) Renal/: Yes: Cancer (bladder cancer- transitional cell), Other (PAST PROSTATE CA) Endocrine: Yes: Diabetes Mellitus - Smoking History Smoking history: Current some day smoker Have you smoked in the past 12 months: Yes Aproximately how many cigarettes per day: 70 - Alcohol/Substance Use Hx Alcohol Use: No History of Substance Use: reports: None - Social History Usual Living Arrangement: Yes: With Spouse ADL: Independent 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 Travel: No Home Medications - Allergies Allergies/Adverse Reactions: Allergies Allergy/AdvReac Type Severity Reaction Status Date / Time No Known Allergies Allergy Verified 05/29/18 15:33 - Home Medications Home Medications: Ambulatory Orders Montelukast Sodium [Singulair] 10 mg PO DAILY 05/29/18 Family Disease History - Family Disease History Family Disease History: Other: Father (: unclear causes), Mother (: unclear causes), Brother (1, healthy), Sister (1, healthy), Son (3, 1 age 30 unclear causes), Daughter (2, 1 age 35 of unclear cancer) Review of Systems - Review of Systems Constitutional: reports: Loss of Appetite, Unintentional Wgt. Loss. denies: Chills, Fever Eyes: denies: Blind Spots, Blurred Vision, Double Vision HENT: denies: Ear Pain, Epistaxis Neck: denies: Stiffness, Tenderness Cardiovascular: reports: Chest Pain (R sided), Shortness of Breath. denies: Palpitations Respiratory: reports: Cough, SOB, SOB on Exertion. denies: Hemoptysis, Orthopnea, PND, Wheezing Gastrointestinal: denies: Abdominal Pain, Constipation, Diarrhea, Vomiting Genitourinary: denies: Dysuria, Flank Pain Musculoskeletal: denies: Back Pain, Joint Swelling Integumentary: denies: Rash, Wound Neurological: denies: Change in LOC, Change in Speech, Confusion, Dizziness, Seizure, Syncope, Tremors, Unsteady Gait, Weakness Hematology/Lymphatic: denies: Easily Bruised, Excessive Bleeding Psychiatric: denies: Anxiety, Depression Physical Examination Vital Signs: Vital Signs Temperature 98.8 F 05/29/18 19:10 Pulse Rate 91 H 05/29/18 19:10 Respiratory Rate 20 05/29/18 15:28 Blood Pressure 114/56 05/29/18 19:10 O2 Sat by Pulse Oximetry (%) 100 05/29/18 19:10 Constitutional: Yes: No Distress, Calm Eyes: Yes: Conjunctiva Clear HENT: Yes: Atraumatic Neck: Yes: Supple Cardiovascular: Yes: Regular Rate and Rhythm Respiratory: Yes: Rales (R>L) Gastrointestinal: Yes: Soft. No: Tenderness Renal/: No: CVA Tenderness - Left, CVA Tenderness - Right, Hematuria Musculoskeletal: No: Joint Stiffness, Joint Swelling Extremities: No: Cold, Cool, Cyanosis Edema: No Integumentary: No: Rash, Venous Stasis Changes Neurological: Yes: WNL, Alert, Oriented ...Motor Strength: WNL Psychiatric: Yes: WNL, Alert, Oriented. No: Agitated, Suicidal Ideation Labs: CBC, BMP 05/29/18 15:58 05/29/18 15:58 Imaging - Results Chest X-ray: Report Reviewed Other: Report Reviewed Assessment/Plan The patient is a 87 year old male, with a significant past medical history of COPD (not on home O2), HTN, DM, asthma, bladder CA, heavy tobacco use, and a history of respiratory arrest, who presents to the emergency department with lightheadedness today and severe anemia admit; transfuse heme onc eval f/u labs pulm eval falls PFX stop tobacco d/w pt and staff; d/w at bedside prognosis guarded; pt and understand his condition, plan of tx and prognosis
[2018-05-30 06:59] LABS: HEMATOCRIT 24.6 % (35.4-49); HEMOGLOBIN 7.5 GM/dL (11.7-16.9); MCHC 30.7 g/dl (32.0-35.9); MEAN PLT VOLUME 8.1 fl (7.5-11.1); PLATELET COUNT 591 K/MM3 (134-434); RBC 3.96 M/mm3 (4.00-5.60); RDW 31.2 % (11.9-15.9); RETICULOCYTES 1.72 % (0.5-1.5); WHITE BLOOD COUNT 9.8 K/mm3 (4.0-10.0)
[2018-05-30 07:23] LABS: ALBUMIN 2.9 g/dl (3.4-5.0); ANION GAP 6 (8-16); BLOOD UREA NITROGEN 17 mg/dL (7-18); CALCIUM 7.7 mg/dL (8.5-10.1); CHLORIDE 106 mmol/L (98-107); CO2 29 mmol/L (21-32); GLUCOSE,RANDOM 79 mg/dL (74-106); POTASSIUM 4.3 mmol/L (3.5-5.1); SODIUM 141 mmol/L (136-145)
[2018-05-30 08:26] LABS: ALK PHOS 91 U/L (45-117); BILIRUBIN,TOTAL 0.9 mg/dL (0.2-1.0); CREATININE 0.5 mg/dL (0.7-1.3); SGOT/AST 12 U/L (15-37); SGPT/ALT 14 U/L (12-78); TOT PROT 5.7 g/dl (6.4-8.2)
[2018-05-30] MEDS: MONTELUKAST NA 10 MG TABLET PO SCH (09:06)
[2018-05-30] MEDS ORDERED: PT OWN MED DRAWER 7, Y5N ONE ×2 (09:08→21:02)
[2018-05-30] MEDS: BUDESONIDE/FORMETEROL FUMARATE 160/4.5 mcg INHALER IH SCH ×2 (09:19→21:05)
--- NOTE | 2018-05-30 09:44 | PN ---
Progress Note, Physician History of Present Illness: Pt w/o left side or SSCP, palpitations, dizziness, change in cough, change in breathing pattern. Pt is c/o right side CP with breathing. - Current Medication List Current Medications: Active Medications Albuterol Sulfate (Ventolin 0.083% Nebulizer Soln -) 1 amp NEB Q6H PRN PRN Reason: SHORT OF BREATH/WHEEZING Budesonide/Formoterol Fumarate (Symbicort 160/4.5mcg -) 2 puff IH BID [facility] Last Admin: 05/30/18 09:19 Dose: 2 puff Montelukast Sodium (Singulair -) 10 mg PO DAILY [facility] Last Admin: 05/30/18 09:06 Dose: 10 mg - Objective Vital Signs: Vital Signs Temperature 97.7 F 05/30/18 06:00 Pulse Rate 91 H 05/30/18 06:00 Respiratory Rate 18 05/30/18 06:00 Blood Pressure 109/50 05/30/18 06:00 O2 Sat by Pulse Oximetry (%) 98 05/30/18 02:35 Constitutional: Yes: No Distress, Calm Cardiovascular: Yes: Regular Rate and Rhythm, S1, S2 Respiratory: Yes: Regular, Rhonchi (scattered), Wheezes (scattered) Gastrointestinal: Yes: Normal Bowel Sounds, Soft. No: Tenderness Edema: No Neurological: Yes: Alert, Oriented Labs: CBC, BMP 05/30/18 06:00 05/30/18 06:00 INR, PTT INR 1.12 (0.83-1.09) H 05/29/18 15:58 Problem List - Problems (1) Anemia Code(s): D64.9 - ANEMIA, UNSPECIFIED (2) COPD (chronic obstructive pulmonary disease) Code(s): J44.9 - CHRONIC OBSTRUCTIVE PULMONARY DISEASE, UNSPECIFIED (3) CAD (coronary artery disease) Code(s): I25.10 - ATHSCL HEART DISEASE OF [place] CORONARY ARTERY W/O ANG PCTRS (4) Diabetes mellitus Code(s): E11.9 - TYPE 2 DIABETES MELLITUS WITHOUT COMPLICATIONS (5) PUD (peptic ulcer disease) Assessment/Plan: Hx/o gastric ulcer in s Code(s): K27.9 - PEPTIC ULC, SITE UNSP, UNSP AC OR CHR, W/O HEMOR OR PERF Assessment/Plan s/p 2 units PRBC TX to tranfuse one more unit PRBC for a Hb above 8 ( Hx/o CAD, advanced COPD) Heme/ Onco consult GI consult. AM labs OOBTC
[2018-05-30] MEDS: NICOTINE 21 MG/24 HOURS TOPICAL PATCH TD SCH (11:00)
--- NOTE | 2018-05-30 11:41 | CON.GI ---
Consult Consult Specialty:: Gastroenterology Referred by:: Dr Junior Reason for Consultation:: Anemia - History of Present Illness Chief Complaint: Weakness and shortness of breath History of Present Illness: 87M is admiited with a Hb of 5.4 with dyspnea on exertion and weakness. He denes any rectal bleeding or melena. He denies hematemesis , dysphagia , constipation and early satiety but tells me that he has loss of appetite and has lost over 100lbs in the past year. He had a partial gastrectomy for a bleeding ulcer at [facility] but has never had an EGD or a colonoscopy. According to the chart he suffered a respiratory arrest during a cystoscopy in the past. Ken does not recall this. Despite COPD he continues to smoke [address] in 12/03 did reveal an R apical lesion ? pleural based. He does admit to being constipated. - History Source History Provided By: Patient Limitations to Obtaining History: Poor Historian - Past Medical History Cardio/Vascular: Yes: HTN, Hyperlipdemia, Other (severe peripheral vascular disease by CT, suspect ASHD) Pulmonary: Yes: COPD, Pneumonia (12/03), Other (current smoker) Gastrointestinal: Yes: Constipation, Peptic Ulcer Disease (with bleeding leading to partial gastrectomy) Renal/: Yes: Cancer (bladder cancer- transitional cell, prostate cancer per the chart- Ken denies this), Renal Calculi, Other (PAST PROSTATE CA) Heme/Onc: Yes: Anemia - Past Surgical History Additional Surgical History: s/p partial gastrectomy for bleeding ulcer - Alcohol/Substance Use Hx Alcohol Use: Yes (quit after ulcer surgery) History of Substance Use: reports: None - Smoking History Smoking history: Current some day smoker Have you smoked in the past 12 months: Yes Aproximately how many cigarettes per day: 70 (2 PPD) - Social History Usual Living Arrangement: With Spouse ADL: Independent 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 (year[place] age 22 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 Travel: No Home Medications - Allergies Allergies/Adverse Reactions: Allergies Allergy/AdvReac Type Severity Reaction Status Date / Time No Known Allergies Allergy Verified 05/29/18 15:33 - Home Medications Home Medications: Ambulatory Orders Montelukast Sodium [Singulair] 10 mg PO DAILY 05/29/18 Family Disease History - Family Disease History Family Disease History: Other: Father ( in his 90's unclear causes), Mother ( young unclear causes), Brother (1, healthy), Sister (1, healthy), Son (3, 1 age 30 unclear causes), Daughter (2, 1 age 35 of unclear cancer) Review of Systems - Review of Systems Constitutional: reports: Loss of Appetite, Malaise, Unintentional Wgt. Loss Eyes: reports: No Symptoms HENT: reports: No Symptoms Neck: reports: No Symptoms Cardiovascular: reports: Shortness of Breath Respiratory: reports: SOB on Exertion Gastrointestinal: reports: Constipation Genitourinary: reports: No Symptoms Musculoskeletal: reports: No Symptoms Physical Exam-GI Vital Signs: Vital Signs Temperature 97.7 F 05/30/18 06:00 Pulse Rate 91 H 05/30/18 06:00 Respiratory Rate 18 05/30/18 06:00 Blood Pressure 109/50 05/30/18 06:00 O2 Sat by Pulse Oximetry (%) 98 05/30/18 02:35 CBC,CMP WBC 9.8 K/mm3 (4.0-10.0) 05/30/18 06:00 RBC 3.96 M/mm3 (4.00-5.60) L 05/30/18 06:00 Hgb 7.5 GM/dL (11.7-16.9) L 05/30/18 06:00 Hct 24.6 % (35.4-49) L D 05/30/18 06:00 MCV 62.0 fl (80-96) L D 05/30/18 06:00 MCH 19.0 pg (25.7-33.7) L D 05/30/18 06:00 MCHC 30.7 g/dl (32.0-35.9) L 05/30/18 06:00 RDW 31.2 % (11.9-15.9) H 05/30/18 06:00 Plt Count 591 K/MM3 (134-434) H D 05/30/18 06:00 MPV 8.1 fl (7.5-11.1) 05/30/18 06:00 Absolute Neuts (auto) 6.0 # 05/29/18 15:58 Total Counted 100 05/29/18 15:58 Neutrophils % No Result Required. 05/29/18 15:58 Neutrophils % (Manual) 69.0 % (42.8-82.8) 05/29/18 15:58 Lymphocytes % No Result Required. 05/29/18 15:58 Lymphocytes % (Manual) 24.0 % (8-40) D 05/29/18 15:58 Monocytes % (Manual) 7 % (3.8-10.2) 05/29/18 15:58 Nucleated RBC % 2 % (0-0) H 05/29/18 15:58 Differential Comment Man diff performed 05/29/18 15:58 Hypochromia 3+ 05/29/18 15:58 Platelet Estimate Mod increased 05/29/18 15:58 Platelet Comment 05/29/18 15:58 Polychromasia 2+ 05/29/18 15:58 Poikilocytosis 1+ 05/29/18 15:58 Anisocytosis 3+ 05/29/18 15:58 Microcytosis 3+ 05/29/18 15:58 Macrocytosis 1+ 05/29/18 15:58 Ovalocytes 1+ 05/29/18 15:58 Retic Count 1.72 % (0.5-1.5) H D 05/30/18 06:00 Sodium 141 mmol/L (136-145) 05/30/18 06:00 Potassium 4.3 mmol/L (3.5-5.1) 05/30/18 06:00 Chloride 106 mmol/L (98-107) 05/30/18 06:00 Carbon Dioxide 29 mmol/L (21-32) 05/30/18 06:00 Anion Gap 6 (8-16) L 05/30/18 06:00 BUN 17 mg/dL (7-18) 05/30/18 06:00 Creatinine 0.5 mg/dL (0.7-1.3) L 05/30/18 06:00 Creat Clearance w eGFR > 60 (>60) 05/30/18 06:00 Random Glucose 79 mg/dL (74-106) 05/30/18 06:00 Calcium 7.7 mg/dL (8.5-10.1) L 05/30/18 06:00 Total Bilirubin 0.9 mg/dL (0.2-1.0) 05/30/18 06:00 AST 12 U/L (15-37) L D 05/30/18 06:00 ALT 14 U/L (12-78) 05/30/18 06:00 Alkaline Phosphatase 91 U/L (45-117) D 05/30/18 06:00 Total Protein 5.7 g/dl (6.4-8.2) L 05/30/18 06:00 Albumin 2.9 g/dl (3.4-5.0) L 05/30/18 06:00 Vitamin B12 4308 pg/ml (180-914) H D 05/30/18 06:00 Current Medications Generic Name Dose Route Start Last Admin Trade Name Freq PRN Reason Stop Dose Admin Albuterol Sulfate 1 amp 05/29/18 23:45 Ventolin 0.083% Nebulizer Soln - NEB Q6H PRN SHORT OF BREATH/WHEEZING Budesonide/Formoterol Fumarate 2 puff 05/30/18 10:00 05/30/18 09:19 Symbicort 160/4.5mcg - IH 2 puff BID [facility] Administration Montelukast Sodium 10 mg 05/30/18 10:00 05/30/18 09:06 Singulair - PO 10 mg DAILY [facility] Administration Nicotine 21 mg 05/30/18 10:30 Nicoderm Patch - TD DAILY [facility] Constitutional: Yes: Calm Eyes: Yes: Conjunctiva Clear HENT: Yes: Normocephalic Neck: Yes: Supple Cardiovascular: Yes: Regular Rate and Rhythm Respiratory: Yes: CTA Bilaterally Gastrointestinal Inspection: Yes: Scars (healed upper midline vertical incision) ...Auscultate: Yes: Normoactive Bowel Sounds ...Palpate: Yes: Soft, Other (nontender) ...Rectal Exam: Yes: Guaiac Positive (brown guaiac positive stool, 2+ prostate) Edema: No Neurological: Yes: Alert, Oriented Labs: CBC, BMP 05/30/18 06:00 05/30/18 06:00 INR, PTT INR 1.12 (0.83-1.09) H 05/29/18 15:58 Assessment/Plan Given his occult bleeding, anemia and weight loss Ken requires a comprehensive GI evaluation. I have proposed an EGD and a colonoscopy and discussed both procedures in detail with Ken including informing him of the potential for such complications as perforation and hemorrhage. He has granted an informed consent for both which I have scheduled for 06/01. Agree with transfusing today and sheila give bowel prep tomorrow. Potential etiologies include colon cancer, a gastric anastomotic malignancy, recurrent ulcer, vascular ectasias among other etiologies. Will repeat CT scan of the chest, abdomen and pelvis to look for malignancy.
[2018-05-30] MEDS: ALBUTEROL SO4 0.083% IH SOL 2.5 MG/3 ML VIAL.NEB. NEB PRN ×2 (12:35→19:37)
--- NOTE | 2018-05-30 12:58 | CONSULT ---
Consult Consult Specialty:: hematology-oncology - History of Present Illness Chief Complaint: trouble breathing, anemia History of Present Illness: The patient is a 87 year old male, with a significant past medical history of COPD, HTN, DM, asthma, bladder CA, heavy tobacco use, and a history of respiratory arrest, who presents to the emergency department with lightheadedness, trouble breathing. Patient states that he was always have trouble breathing but it has gotten worse. He also reports loss of weight about 100 pounds and loss of appetite reported He denies bleeding or dark, bloody stools. Denies dysphagia, hematuria, change in frequency of urination, burning. Denies constipation, diarrhoea and distension. - History Source History Provided By: Patient, Medical Record Limitations to Obtaining History: No Limitations - Past Medical History Cardio/Vascular: Yes: HTN, Hyperlipdemia, Other (severe peripheral vascular disease by CT, suspect ASHD) Pulmonary: Yes: COPD, Pneumonia (12/03), Other (current smoker, home oxygen dependent) Gastrointestinal: Yes: Constipation, Peptic Ulcer Disease (with bleeding leading to partial gastrectomy) Renal/: Yes: Cancer (bladder cancer- transitional cell, prostate cancer per the chart- Ken denies this), Renal Calculi, Other (PAST PROSTATE CA) Endocrine: Yes: Diabetes Mellitus - Past Surgical History Additional Surgical History: s/p partial gastrectomy for bleeding ulcer - Alcohol/Substance Use Hx Alcohol Use: Yes (quit after ulcer surgery) History of Substance Use: reports: None - Smoking History Smoking history: Current every day smoker Have you smoked in the past 12 months: Yes Aproximately how many cigarettes per day: 70 (2 PPD) - Social History Usual Living Arrangement: With Spouse ADL: Independent 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 Travel: No Home Medications - Allergies Allergies/Adverse Reactions: Allergies Allergy/AdvReac Type Severity Reaction Status Date / Time No Known Allergies Allergy Verified 05/29/18 15:33 - Home Medications Home Medications: Ambulatory Orders Montelukast Sodium [Singulair] 10 mg PO DAILY 05/29/18 Family Disease History - Family Disease History Family Disease History: Other: Father ( in his 90's unclear causes), Mother ( young unclear causes), Brother (1, healthy), Sister (1, healthy), Son (3, 1 age 30 unclear causes), Daughter (2, 1 age 35 of unclear cancer) Review of Systems - Review of Systems Constitutional: reports: Lethargy, Loss of Appetite, Weakness Eyes: reports: No Symptoms. denies: Blind Spots, Blurred Vision HENT: denies: Difficult Swallowing Cardiovascular: reports: Shortness of Breath. denies: Chest Pain, Palpitations Respiratory: reports: SOB, SOB on Exertion, Wheezing. denies: Hemoptysis Gastrointestinal: reports: Constipation. denies: Abdominal Pain, Bloating, Diarrhea, Dysphagia, Melena Genitourinary: reports: No Symptoms. denies: Discharge, Flank Pain, Frequency Musculoskeletal: reports: No Symptoms Neurological: reports: No Symptoms Hematology/Lymphatic: reports: No Symptoms Psychiatric: reports: No Symptoms Physical Exam Vital Signs: Vital Signs Temperature 98.6 F 05/30/18 09:00 Pulse Rate 88 05/30/18 09:00 Respiratory Rate 18 05/30/18 09:00 Blood Pressure 110/56 05/30/18 09:00 O2 Sat by Pulse Oximetry (%) 97 05/30/18 09:00 Constitutional: Yes: Well Nourished, Calm, Mild Distress Eyes: Yes: WNL, Conjunctiva Clear, EOM Intact HENT: Yes: WNL, Atraumatic, Normocephalic. No: Thrush Neck: Yes: WNL, Supple, Trachea Midline. No: Lymphadenopathy Cardiovascular: Yes: WNL, Regular Rate and Rhythm, Tachycardia, Murmur Respiratory: Yes: WNL, Regular, Wheezes (decrease air entry b/l) Gastrointestinal: Yes: WNL, Normal Bowel Sounds, Soft, Other (midline scar). No : Splenomegaly, Tenderness Renal/: Yes: Other (no testicular swelling, circumcised). No: CVA Tenderness - Left, CVA Tenderness - Right, Incontinence, Scrotal Edema Musculoskeletal: No: Back Pain Peripheral Pulses WNL: No Neurological: Yes: WNL, Alert, Oriented Psychiatric: Yes: WNL, Alert, Oriented Labs: CBC, BMP 05/30/18 06:00 05/30/18 06:00 Problem List - Problems (1) Anemia Code(s): D64.9 - ANEMIA, UNSPECIFIED (2) COPD (chronic obstructive pulmonary disease) Code(s): J44.9 - CHRONIC OBSTRUCTIVE PULMONARY DISEASE, UNSPECIFIED (3) PUD (peptic ulcer disease) Code(s): K27.9 - PEPTIC ULC, SITE UNSP, UNSP AC OR CHR, W/O HEMOR OR PERF (4) Acute exacerbation of chronic obstructive pulmonary disease (COPD) Code(s): J44.1 - CHRONIC OBSTRUCTIVE PULMONARY DISEASE W (ACUTE) EXACERBATION Assessment/Plan For anemia, weight loss and loss of appetite patient need GI workup. Patient is scheduled for colonoscopy on 06/01. Iron studies and folic acid pending. B-12 elevated --?? etiology Visit type - Emergency Visit Emergency Visit: Yes ED Registration Date: 05/29/18 Care time: The patient presented to the Emergency Department on the above date and was hospitalized for further evaluation of their emergent condition. - New Patient This patient is new to me today: Yes Date on this admission: 05/31/18 - Critical Care Critical Care patient: No
--- NOTE | 2018-05-30 13:43 | PN ---
Progress Note (short form) - Note Progress Note: PULMONARY CONSULTATION DICTATED 05/30/18 IMP DYSPNEA/LIGHTHEADEDNESS SEVERE SYMPTOMATIC ANEMIA LIKELY GI BLEED COPD EXACERBATION RUL MASS STABLE SINCE 2016 DM HTN ASHD PVD TOBACCO ABUSE PLAN IV STEROIDS INHALED BRONCHODILATORS O2 NORMAL TRANSFUSION THRESHOLD MONITOR H+H CHEST X-RAY SMOKING CESSATION COUNSELED DR MUNOZ Problem List - Problems (1) Anemia Code(s): D64.9 - ANEMIA, UNSPECIFIED (2) CAD (coronary artery disease) Code(s): I25.10 - ATHSCL HEART DISEASE OF [place] CORONARY ARTERY W/O ANG PCTRS (3) COPD (chronic obstructive pulmonary disease) Code(s): J44.9 - CHRONIC OBSTRUCTIVE PULMONARY DISEASE, UNSPECIFIED (4) Diabetes mellitus Code(s): E11.9 - TYPE 2 DIABETES MELLITUS WITHOUT COMPLICATIONS (5) Acute exacerbation of chronic obstructive pulmonary disease (COPD) Code(s): J44.1 - CHRONIC OBSTRUCTIVE PULMONARY DISEASE W (ACUTE) EXACERBATION (6) DM2 (diabetes mellitus, type 2) Code(s): E11.9 - TYPE 2 DIABETES MELLITUS WITHOUT COMPLICATIONS (7) Emphysema of lung Code(s): J43.9 - EMPHYSEMA, UNSPECIFIED (8) HTN (hypertension) Code(s): I10 - ESSENTIAL (PRIMARY) HYPERTENSION
--- NOTE | 2018-05-30 14:25 | CONS ---
DATE OF CONSULTATION: 05/30/2018 REFERRING PHYSICIAN: Dary Junior MD The patient is an 87-year-old white male with past history of advanced COPD; longstanding history of tobacco use, currently still smoking; hypertension, diabetes, bladder cancer, pneumonia, history of respiratory arrest, hyperlipidemia, peripheral vascular disease, renal calculi, transitional cell carcinoma, prostate carcinoma, admitted to [facility] with complaint of increasing shortness of breath and lightheadedness. Patient states he has always had trouble breathing, but it recently got worsened. He also complained of 100-pound weight loss over the past year. He denied any bleeding or dark stools. Apparently on admission he was noticed to be markedly anemic with a hemoglobin of 5.4 g. He was subsequently transfused. He was by Dr. Lau for GI as the patient is scheduled to have a colonoscopy as well as an endoscopy on Monday. Patient has been complaining of shortness of breath with exertion. He denies any chest pain, nausea, vomiting, or diaphoresis. Denies any hemoptysis. He denies any cough. He states he uses an inhaler at home but is unsure of the name. PAST MEDICAL HISTORY: As above. Right upper lobe mass which is stable since 2016. CURRENT MEDICATIONS: Include Symbicort, Nicoderm, albuterol, Dulcolax, MiraLax, Singulair, and Protonix. REVIEW OF SYSTEMS: Positive shortness of breath, positive cough, positive chest congestion. No fever, no chills, no abdominal pain. Positive lightheadedness. No lower extremity edema. SOCIAL HISTORY: Born in [place]. Moved to [facility] many years ago. Previously worked with [employer], positive asbestos exposure. History of tobacco since early teens. PHYSICAL EXAMINATION: General: The patient is a well-developed, thin male, awake, alert, in no acute respiratory distress. Vital Signs: He is currently afebrile. Blood pressure is 110/56. Respiratory rate is 18. O2 saturation is 97% on 2 L. HEENT: Exam is normocephalic, atraumatic. Neck: Supple. Heart: Regular, S1, S2. Chest: Diffuse bilateral expiratory and inspiratory wheezes. Abdomen: Soft. Bowel sounds are positive. Extremities: No cyanosis or edema. LABORATORY: WBC is initially 10, hemoglobin 5.4, hematocrit 19.3, with a platelet count of 805. Repeat WBC is 9.8, hemoglobin 7.5, hematocrit is 24.6, with a platelet count of 591,000. INR is 1.12. Blood gas not performed. BUN is 17. Creatinine 0.5. Chest x-ray not performed. IMPRESSION: Dyspnea, lightheadedness, looks like secondary to multiple factors: 1. Severe symptomatic anemia likely secondary to gastrointestinal bleed. 2. Chronic obstructive pulmonary disease with acute exacerbation. 3. Hypertension. 4. Hyperlipidemia. 5. Diabetes. 6. Right upper lobe mass, stable since 2016. 7. Tobacco abuse. PLAN: IV steroids, inhaled bronchodilators, supplemental O2, monitor hemoglobin and hematocrit, normal transfusion threshold. GI workup as per Dr. Lau. Smoking cessation counseled. SHA MUNOZ M.D. SONG/[id number]
[2018-05-30] MEDS: POLYETHYLENE GLYCOL 3350 119 GM BTL PO SCH ×2 (15:00→21:08)
[2018-05-30] MEDS: methylPREDNISolone NA SUCC 40 MG/1 ML VIAL IVPUSH SCH ×2 (16:00→21:05)
--- NOTE | 2018-05-30 17:51 | PN ---
Teaching Attending Note Name of Resident: Cody Suárez ATTENDING PHYSICIAN STATEMENT I saw and evaluated the patient. I reviewed the resident's note and discussed the case with the resident. I agree with the resident's findings and plan as documented. ASSESSMENT AND PLAN: Progressively worsening microcytic anemia over past 3 years, likely attributable to GI bleed - agree with need for GI workup. Can administer IV iron while admitted - still has iron deficit despite transfusion. Smoking history noted. If GI workup non-revealing then consider more braod screening for occult malignancy. Will follow with you.
[2018-05-30] MEDS: PANTOPRAZOLE 40 MG TABLET (FP) PO SCH (21:06)
[2018-05-30] MEDS ORDERED: POLYETHYLENE GLYCOL 3350 119 GM BTL PO SCH (22:00)
[2018-05-31] MEDS: methylPREDNISolone NA SUCC 40 MG/1 ML VIAL IVPUSH SCH ×3 (03:08→21:39)
[2018-05-31] MEDS: POLYETHYLENE GLYCOL 3350 119 GM BTL PO SCH ×3 (06:02→21:38)
[2018-05-31 06:10] LABS: SERUM IRON SATURATION 2 % (15-55); TOTAL IRON BINDING CAPACITY 448 ug/dL (250-450); UIBC 441 ug/dL (111-343)
[2018-05-31 08:04] LABS: HEMATOCRIT 30.9 % (35.4-49); HEMOGLOBIN 9.6 GM/dL (11.7-16.9); MCH 20.2 pg (25.7-33.7); MEAN CELL VOLUME 64.9 fl (80-96); MEAN PLT VOLUME 8.2 fl (7.5-11.1); PLATELET COUNT 565 K/MM3 (134-434); RBC 4.76 M/mm3 (4.00-5.60); RDW 32.4 % (11.9-15.9); WHITE BLOOD COUNT 7.9 K/mm3 (4.0-10.0)
[2018-05-31 08:30] LABS: ANION GAP 7 (8-16); BLOOD UREA NITROGEN 17 mg/dL (7-18); CALCIUM 8.3 mg/dL (8.5-10.1); CHLORIDE 104 mmol/L (98-107); CO2 29 mmol/L (21-32); CREATININE 0.6 mg/dL (0.7-1.3); GLUCOSE,RANDOM 165 mg/dL (74-106); POTASSIUM 4.9 mmol/L (3.5-5.1); SODIUM 140 mmol/L (136-145)
[2018-05-31] MEDS ORDERED: PEG3350/SOD SULF,BICARB,CL/KCL 4,000 ML SOLN.RECON PO ONE (09:00)
[2018-05-31] MEDS ORDERED: PT OWN MED DRAWER 7, Y5N ONE ×2 (09:16→21:23)
[2018-05-31] MEDS: MONTELUKAST NA 10 MG TABLET PO SCH (09:34)
[2018-05-31] MEDS: PANTOPRAZOLE 40 MG TABLET (FP) PO SCH ×2 (09:34→21:38)
[2018-05-31] MEDS: NICOTINE 21 MG/24 HOURS TOPICAL PATCH TD SCH (09:35)
[2018-05-31] MEDS: BUDESONIDE/FORMETEROL FUMARATE 160/4.5 mcg INHALER IH SCH ×2 (09:35→21:39)
[2018-05-31] MEDS ORDERED: IRON SUCROSE INJECTION 300 MG in SODIUM CHLORIDE 235 ML IVPB ONE (10:00)
--- NOTE | 2018-05-31 12:01 | PN ---
Progress Note (short form) - Note Progress Note: PULMONARY States breathing is improved. No cough or wheezing. Wants to go home. Vital Signs Period Temp Pulse Resp BP Sys/Magaña Pulse Ox Last 24 Hr 98.6 F-98.6 F 83-90 20-20 121-124/61-66 98 Gen: NAD at rest Heart: RRR Lung: distant breath sounds Abd: soft, nontender Ext: no edema CBC, BMP 05/31/18 06:30 05/31/18 06:30 Active Medications Albuterol Sulfate (Ventolin 0.083% Nebulizer Soln -) 1 amp NEB Q6H PRN PRN Reason: SHORT OF BREATH/WHEEZING Last Admin: 05/30/18 19:37 Dose: 1 amp Bisacodyl (Dulcolax -) 20 mg PO ONCE ONE Stop: 05/31/18 18:01 Budesonide/Formoterol Fumarate (Symbicort 160/4.5mcg -) 2 puff IH BID [facility] Last Admin: 05/31/18 09:35 Dose: 2 puff Methylprednisolone Sodium Succinate (Solu-Medrol -) 40 mg IVPUSH Q6H-IV [facility] Last Admin: 05/31/18 09:34 Dose: 40 mg Montelukast Sodium (Singulair -) 10 mg PO DAILY [facility] Last Admin: 05/31/18 09:34 Dose: 10 mg Nicotine (Nicoderm Patch -) 21 mg TD DAILY [facility] Last Admin: 05/31/18 09:35 Dose: Not Given Pantoprazole Sodium (Protonix -) 40 mg PO BID [facility] Last Admin: 05/31/18 09:34 Dose: 40 mg Polyethylene Glycol (Miralax (For Daily Use) -) 17 gm PO TID [facility] Last Admin: 05/31/18 06:02 Dose: 17 grams A/P GI Bleed Anemia Acute COPD Exacerbation Lung Mass stable HTN DM CAD Smoker - will decrease medrol - inhaled bronchodilators - monitor H/H - GI work up in progress - outpt f/u of lung mass - DVT prophylaxis - smoking cessation
--- NOTE | 2018-05-31 12:28 | CONS ---
CARDIOLOGY CONSULTATION DATE OF CONSULTATION: DATE OF DICTATION: 05/31/2018 REQUESTING PHYSICIAN: Vivek Junior MD CHIEF COMPLAINT: Anemia. Patient is an 87-year-old gentleman who was admitted with severe anemia. Patient has longstanding history of chronic obstructive pulmonary disease/chronic bronchitis, hypertension, hypertensive cardiovascular disease, tobacco abuse, history of peptic ulcer disease back in the 1960s, was admitted because he was found to have an extremely low hemoglobin. On questioning, patient denies having chest pain or discomfort either at rest or with exertion. Has chronic exertional dyspnea. No paroxysmal nocturnal dyspnea or orthopnea reported. There is no history of palpitations, although on a recent visit office, he was found to have sinus tachycardia. He has no history of abdominal pain or discomfort. There is no history of melena. He does complain of constipation. He has chronic cough with expectoration. Denies having hemoptysis. There is no history of diabetes mellitus. According to his initial consultation back in January 2017, reported by his son that he had progressive memory loss. PAST HISTORY: History of cardiopulmonary arrest back in January 2015, while undergoing urological procedure after he had received Versed, Toradol, and ceftriaxone and was hospitalized at [facility]. History of urinary bladder polyps. SURGICAL HISTORY: Status post gastric surgery for bleeding peptic ulcer disease back in 1966. 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 Has 2 sons and 3 daughters. One of his sons apparently of organic brain syndrome at age 35. He has been smoking since his teenage years and used to smoke 4-5 packets per day, currently smoking 2 packets per day. Drinks 4-5 cups of coffee and has a rare drink. FAMILY HISTORY: Father had in his 80s, and mother when he was 5 years old; cause of their deaths is unknown. He has 3 step-brothers and step-sisters and also has a brother and a sister from his mother. Two of his step-brothers are , and his sister in her 40s, apparently of a lymphatic tumor. ALLERGIES: None documented. CURRENT MEDICATIONS: 1. Symbicort 160/4.5 mcg 2 inhalations b.i.d. 2. Methylprednisolone 40 mg IV q.6 hours. 3. Nicotine patch 21 mg daily. 4. Albuterol via nebulizer. 5. Dulcolax 20 mg p.o. daily. 6. MiraLAX 17 g p.o. t.i.d. 7. Iron supplements 250 mg IV given on single occasion. 8. Singulair 10 mg p.o. daily. 9. Pantoprazole 40 mg p.o. b.i.d. REVIEW OF SYSTEMS: Constitutional: No history of recent chills, fever, or night sweats. He states that there has been some weight loss. HEENT: No history of headaches, diplopia, blurred vision reported. No history of epistaxis. Denies having hoarseness. No history of tinnitus or deafness. Respiratory: See history of present illness. Cardiovascular: See history of present illness. Gastrointestinal: No history of nausea, vomiting, melena, or hematemesis. History of constipation. Denies loss of appetite. Genitourinary: No history of dysuria or frequency reported. History of nocturia. No history of hematuria. Musculoskeletal: No history of myalgias or arthralgias. Endocrine: No history of polyuria or polydipsia. Neurological: No history of seizures or syncope. No history of focal weakness. No history of lightheadedness. Hematological: History of anemia, recently found to have significant decrease in hematocrit. Lymphatic: No history of lymphadenopathy. PHYSICAL EXAMINATION: General: An 87-year-old gentleman was in no acute distress. No pallor was appreciated. No clubbing or jaundice. Vital Signs: Weight was 133.4 pounds. Blood pressure 121/61 mmHg. Pulse 90 beats per minute and regular. Respirations 20 per minute. Oxygen saturation 98% on 2 L of oxygen. Neck: Supple. No jugular venous distention. Hepatojugular reflux was negative. Carotids were 2+. Upstrokes were normal. No bruits were heard, and no thyromegaly was present. Heart: PMI was in the fifth intercostal space. Heart sounds were distant. Unable to appreciate murmurs or gallops. Lungs: Coarse breath sounds but decreased at the bases. Scattered expiratory wheezing. Abdomen: Soft, slightly protuberant, and nontender. No hepatosplenomegaly or palpable masses were felt. There was a well-healed epigastric scar. Bowel sounds were present. Unable to appreciate any bruit. Extremities: No calf tenderness or dependent edema. Femoral pulses were 2+. Dorsalis pedis and posterior tibial pulses were weak. LABORATORY DATA: ECG is not available. CBC May 29, 2018: Hemoglobin was 5.4 g. Repeat CBC May 31, 2018: Hemoglobin 9.6 g with microcytic cell indices. Platelet count on May 29 was 850,000. Followup platelet count is 565,000. Differential reveals 2% nucleated RBCs. Reticulocyte count was 1.72. There were polychromasia, poikilocytosis, anisocytosis, microcytosis, macrocytosis and ovalocytes. Chemistry May 31, 2018: Sodium 140, potassium 4.9, chloride 104, CO2 of 29 mmol/L. BUN 17, creatinine 0.6 mg/dL. Liver function tests on May 30, 2018: Total bilirubin 0.9, AST 12, ALT 14, alkaline phosphatase 91, total protein 5.7 g/dL, albumin 2.9 g/dL. Vitamin B12 was 4308 pg/mL. X-ray chest dated May 30, 2018: Since the prior study of December 13, 2017, there are still some coarse lung changes with prominent mediastinal and there may be some minimal atelectatic changes at the left base. Correlation is recommended. If symptoms persist, further imaging with CT may be helpful. IMPRESSION: 1. Chronic obstructive pulmonary disease/acute bronchitis. 2. History of chest pains compatible with coronary artery disease, angina pectoris. 3. History of hypertension. 4. Hypercholesterolemia. 5. Anemia and thrombocytosis, etiology to be determined. 6. Right bundle branch block. 7. Poor compliance. RECOMMENDATION: 1. Consider hematological evaluation. 2. All his medications must be obtained from home for reconciliation. 3. There appears to be no absolute cardiac contraindication for endoscopy. Patient will need close monitoring of cardiopulmonary status, especially in a previous history of cardiopulmonary arrest after receiving Versed and Toradol. 4. Patient had been on Cardizem CD 120 mg and should be resumed provided there are no contraindications. 5. Consider CT scan of the chest as there was suggestion of a widened mediastinum. PROGNOSIS: Guarded. Thank you for your referral. Yours sincerely, IAN ARORA M.D. JANIE/[id number]
--- NOTE | 2018-05-31 15:52 | PN ---
Progress Note, Physician History of Present Illness: Pt w/o SOB, CP, palpitations, abd pain. Pt doesn't have Nicotine Patch on ( per his nurse pt refused the patch), he states that nobody offered him the patch - Current Medication List Current Medications: Active Medications Albuterol Sulfate (Ventolin 0.083% Nebulizer Soln -) 1 amp NEB Q6H PRN PRN Reason: SHORT OF BREATH/WHEEZING Last Admin: 05/30/18 19:37 Dose: 1 amp Bisacodyl (Dulcolax -) 20 mg PO ONCE ONE Stop: 05/31/18 18:01 Budesonide/Formoterol Fumarate (Symbicort 160/4.5mcg -) 2 puff IH BID [facility] Last Admin: 05/31/18 09:35 Dose: 2 puff Methylprednisolone Sodium Succinate (Solu-Medrol -) 40 mg IVPUSH Q12H [facility] Montelukast Sodium (Singulair -) 10 mg PO DAILY [facility] Last Admin: 05/31/18 09:34 Dose: 10 mg Nicotine (Nicoderm Patch -) 21 mg TD DAILY [facility] Last Admin: 05/31/18 09:35 Dose: Not Given Pantoprazole Sodium (Protonix -) 40 mg PO BID [facility] Last Admin: 05/31/18 09:34 Dose: 40 mg Polyethylene Glycol (Miralax (For Daily Use) -) 17 gm PO TID [facility] Last Admin: 05/31/18 06:02 Dose: 17 grams - Objective Vital Signs: Vital Signs Temperature 98.1 F 05/31/18 10:00 Pulse Rate 86 05/31/18 10:00 Respiratory Rate 20 05/31/18 10:00 Blood Pressure 132/52 05/31/18 10:00 O2 Sat by Pulse Oximetry (%) 97 05/31/18 09:00 Constitutional: Yes: No Distress, Calm Cardiovascular: Yes: Regular Rate and Rhythm, S1, S2 Respiratory: Yes: Regular, Rhonchi (scattered) Gastrointestinal: Yes: Normal Bowel Sounds, Soft. No: Tenderness Edema: No Neurological: Yes: Alert, Oriented Labs: CBC, BMP 05/31/18 06:30 05/31/18 06:30 INR, PTT INR 1.12 (0.83-1.09) H 05/29/18 15:58 Problem List - Problems (1) Anemia Code(s): D64.9 - ANEMIA, UNSPECIFIED (2) COPD (chronic obstructive pulmonary disease) Code(s): J44.9 - CHRONIC OBSTRUCTIVE PULMONARY DISEASE, UNSPECIFIED (3) CAD (coronary artery disease) Code(s): I25.10 - ATHSCL HEART DISEASE OF [place] CORONARY ARTERY W/O ANG PCTRS (4) Diabetes mellitus Code(s): E11.9 - TYPE 2 DIABETES MELLITUS WITHOUT COMPLICATIONS (5) PUD (peptic ulcer disease) Code(s): K27.9 - PEPTIC ULC, SITE UNSP, UNSP AC OR CHR, W/O HEMOR OR PERF Assessment/Plan s/p 3 units PRBC TX Heme/Onco, GI, Pulmonary consults are appreciated. Pt is scheduled for EGD and colonoscopy in AM. Pt with Hx/o possible cardiac arrest. Cardio Consult. AM labs OOBTC
[2018-05-31] MEDS ORDERED: BISACODYL 5 MG TABLET.DR (FP) PO ONE (18:00)
--- NOTE | 2018-05-31 22:16 | PN ---
GI Progress Note Subjective: GI NOte: The daytime nurse Jacky informed me that Ken refused to take the bowel prep and insisted on eating earlier today precluding a colonoscopy. I discussed this with him and the fact that colonoscopy cannot be done without a prep. I asked whether he is still willing to have the EGD if the schedule tomorrow permits it. He responded yes. I did tell him that this will require remaining NPO until tomorrow afternoon. I did discuss his case with Dr Gann earlier today who has stated steroids to optimize his pulmonary function for endoscopy. He is severely iron deficient. I reminded him that he could have an underlying cancer. His CT has not been read. - Objective Vital Signs: Vital Signs Temperature 98.3 F 05/31/18 20:33 Pulse Rate 93 H 05/31/18 20:33 Respiratory Rate 21 05/31/18 20:33 Blood Pressure 135/64 05/31/18 20:33 O2 Sat by Pulse Oximetry (%) 97 05/31/18 09:00 Constitutional: No Distress ...Auscultate: Yes: Normoactive Bowel Sounds ...Palpate: Yes: Soft, Other (nontender) Labs: CBC, BMP 05/31/18 06:30 05/31/18 06:30 INR, PTT INR 1.12 (0.83-1.09) H 05/29/18 15:58 Problem List - Problems (1) Iron deficiency anemia Assessment/Plan: Given his weight loss and iron deficiency I suspect an underlying GHI malignancy and will try to do the EGD tomorrow as his stomach appears abnormal on the CT scan as does his rectal wall Code(s): D50.9 - IRON DEFICIENCY ANEMIA, UNSPECIFIED (2) Weight loss Code(s): R63.4 - ABNORMAL WEIGHT LOSS (3) GI (gastrointestinal bleed) Code(s): K92.2 - GASTROINTESTINAL HEMORRHAGE, UNSPECIFIED (4) COPD exacerbation Code(s): J44.1 - CHRONIC OBSTRUCTIVE PULMONARY DISEASE W (ACUTE) EXACERBATION (5) Cardiopulmonary arrest Code(s): I46.9 - CARDIAC ARREST, CAUSE UNSPECIFIED
[2018-06-01] MEDS: POLYETHYLENE GLYCOL 3350 119 GM BTL PO SCH ×2 (05:12→15:27)
[2018-06-01 08:15] LABS: HEMATOCRIT 28.7 % (35.4-49); HEMOGLOBIN 9.1 GM/dL (11.7-16.9); MCH 20.4 pg (25.7-33.7); MCHC 31.6 g/dl (32.0-35.9); MEAN CELL VOLUME 64.6 fl (80-96); MEAN PLT VOLUME 8.3 fl (7.5-11.1); PLATELET COUNT 458 K/MM3 (134-434); RBC 4.45 M/mm3 (4.00-5.60); RDW 34.2 % (11.9-15.9); WHITE BLOOD COUNT 14.3 K/mm3 (4.0-10.0)
[2018-06-01 08:36] LABS: CHLORIDE 103 mmol/L (98-107); POTASSIUM 4.3 mmol/L (3.5-5.1); SODIUM 139 mmol/L (136-145)
[2018-06-01 08:53] LABS: ANION GAP 8 (8-16); BLOOD UREA NITROGEN 17 mg/dL (7-18); CALCIUM 8.2 mg/dL (8.5-10.1); CO2 28 mmol/L (21-32); CREATININE 0.6 mg/dL (0.7-1.3); GLUCOSE,RANDOM 140 mg/dL (74-106)
[2018-06-01 09:29] VITALS: TEMP 97.8
--- NOTE | 2018-06-01 09:37 | PN ---
Progress Note (short form) - Note Progress Note: GI Procedure Note: Please see scanned EGD report. 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 There was a normal Billroth II gastrectomy found. Prior to the procedure informed consent was obtained from the and son Morgan as Ken's ability to make decisions in now in question. Hope to be able to prep for colonoscopy on Monday Problem List - Problems (1) Iron deficiency anemia Code(s): D50.9 - IRON DEFICIENCY ANEMIA, UNSPECIFIED (2) Weight loss Code(s): R63.4 - ABNORMAL WEIGHT LOSS (3) GI (gastrointestinal bleed) Code(s): K92.2 - GASTROINTESTINAL HEMORRHAGE, UNSPECIFIED (4) COPD exacerbation Code(s): J44.1 - CHRONIC OBSTRUCTIVE PULMONARY DISEASE W (ACUTE) EXACERBATION (5) Cardiopulmonary arrest Code(s): I46.9 - CARDIAC ARREST, CAUSE UNSPECIFIED
[2018-06-01 09:56] VITALS: BP 123/44; PULSE 70
[2018-06-01] MEDS: methylPREDNISolone NA SUCC 40 MG/1 ML VIAL IVPUSH SCH ×4 (10:00→13:38)
--- NOTE | 2018-06-01 10:10 | PN ---
Progress Note, Physician History of Present Illness: Pt w/o SOB, CP, palpitations, abd pain. Pt w/o blood in stool, black stool, blood in the sputum. Pt doesn't have Nicotine Patch and refusing one; he agrees with Wellbutrine - Current Medication List Current Medications: Active Medications Albuterol Sulfate (Ventolin 0.083% Nebulizer Soln -) 1 amp NEB Q6H PRN PRN Reason: SHORT OF BREATH/WHEEZING Last Admin: 05/30/18 19:37 Dose: 1 amp Budesonide/Formoterol Fumarate (Symbicort 160/4.5mcg -) 2 puff IH BID [facility] Last Admin: 05/31/18 21:39 Dose: 2 puff Bupropion HCl (Wellbutrin Xl -) 150 mg PO DAILY [facility] Stop: 06/03/18 10:01 Bupropion HCl (Wellbutrin Xl -) 150 mg PO BID@1000,2000 [facility] Methylprednisolone Sodium Succinate (Solu-Medrol -) 40 mg IVPUSH Q12H [facility] Last Admin: 05/31/18 21:39 Dose: 40 mg Montelukast Sodium (Singulair -) 10 mg PO DAILY [facility] Last Admin: 05/31/18 09:34 Dose: 10 mg Nicotine (Nicoderm Patch -) 21 mg TD DAILY [facility] Last Admin: 05/31/18 09:35 Dose: Not Given Pantoprazole Sodium (Protonix -) 40 mg PO BID [facility] Last Admin: 05/31/18 21:38 Dose: 40 mg Polyethylene Glycol (Miralax (For Daily Use) -) 17 gm PO TID [facility] Last Admin: 06/01/18 05:12 Dose: Not Given - Objective Vital Signs: Vital Signs Temperature 97.8 F 06/01/18 09:22 Pulse Rate 70 06/01/18 09:56 Respiratory Rate 17 06/01/18 09:56 Blood Pressure 123/44 06/01/18 09:56 O2 Sat by Pulse Oximetry (%) 100 06/01/18 09:56 Constitutional: Yes: No Distress, Calm Cardiovascular: Yes: Regular Rate and Rhythm, S1, S2 Respiratory: Yes: Regular, Rhonchi (scattered) Gastrointestinal: Yes: Normal Bowel Sounds, Soft. No: Tenderness Edema: No Neurological: Yes: Alert, Oriented Labs: CBC, BMP 06/01/18 07:09 06/01/18 07:09 INR, PTT INR 1.12 (0.83-1.09) H 05/29/18 15:58 Problem List - Problems (1) Anemia Code(s): D64.9 - ANEMIA, UNSPECIFIED (2) COPD (chronic obstructive pulmonary disease) Code(s): J44.9 - CHRONIC OBSTRUCTIVE PULMONARY DISEASE, UNSPECIFIED (3) CAD (coronary artery disease) Code(s): I25.10 - ATHSCL HEART DISEASE OF [place] CORONARY ARTERY W/O ANG PCTRS (4) Diabetes mellitus Code(s): E11.9 - TYPE 2 DIABETES MELLITUS WITHOUT COMPLICATIONS (5) PUD (peptic ulcer disease) Code(s): K27.9 - PEPTIC ULC, SITE UNSP, UNSP AC OR CHR, W/O HEMOR OR PERF Assessment/Plan s/p 3 units PRBC TX H/H is trending down; to monitor. Heme/Onco, GI, Pulmonary, Cardio consults are appreciated. Pt didn't drink the prep for colonoscopy; he had EGD this AM. AM labs. OOBTC. Case was d/w pt's nurse.
--- NOTE | 2018-06-01 10:22 | PN ---
Progress Note (short form) - Note Progress Note: PULMONARY States breathing is improved. No cough or wheezing. Wants to go home. Appears stable post EGD Gen: NAD at rest Heart: RRR Lung: distant breath sounds Abd: soft, nontender Ext: no edema labs/meds/notes reviewed HGB 9.1 Active Medications Albuterol Sulfate (Ventolin 0.083% Nebulizer Soln -) 1 amp NEB Q6H PRN PRN Reason: SHORT OF BREATH/WHEEZING Last Admin: 05/30/18 19:37 Dose: 1 amp Bisacodyl (Dulcolax -) 20 mg PO ONCE ONE Stop: 05/31/18 18:01 Budesonide/Formoterol Fumarate (Symbicort 160/4.5mcg -) 2 puff IH BID [facility] Last Admin: 05/31/18 09:35 Dose: 2 puff Methylprednisolone Sodium Succinate (Solu-Medrol -) 40 mg IVPUSH Q6H-IV [facility] Last Admin: 05/31/18 09:34 Dose: 40 mg Montelukast Sodium (Singulair -) 10 mg PO DAILY [facility] Last Admin: 05/31/18 09:34 Dose: 10 mg Nicotine (Nicoderm Patch -) 21 mg TD DAILY [facility] Last Admin: 05/31/18 09:35 Dose: Not Given Pantoprazole Sodium (Protonix -) 40 mg PO BID [facility] Last Admin: 05/31/18 09:34 Dose: 40 mg Polyethylene Glycol (Miralax (For Daily Use) -) 17 gm PO TID [facility] Last Admin: 05/31/18 06:02 Dose: 17 grams A/P GI Bleed Anemia Acute COPD Exacerbation Lung Mass stable HTN DM CAD Smoker - decrease medrol - inhaled bronchodilators - monitor H/H - GI work up in progress - outpt f/u of lung mass - DVT prophylaxis - smoking cessation Anaid THORPE MD
[2018-06-01] MEDS: NICOTINE 21 MG/24 HOURS TOPICAL PATCH TD SCH (11:42)
[2018-06-01] MEDS: MONTELUKAST NA 10 MG TABLET PO SCH (11:43)
[2018-06-01] MEDS: PANTOPRAZOLE 40 MG TABLET (FP) PO SCH (11:43)
[2018-06-01] MEDS: BUDESONIDE/FORMETEROL FUMARATE 160/4.5 mcg INHALER IH SCH (11:43)
--- NOTE | 2018-06-04 10:35 | PATH ---
Surgical Pathology Report Patient Name: TITUS GARCIA [facility]. Rec. #: [id number] /Age/Gender: 1930 (Age: 87) / M Account: [id number] Location: [address] [place] [address] Taken: 06/01/2018 Received: 06/01/2018 Reported: 06/04/2018 Physicians: Pardeep Davis M.D. Specimen(s) Received A: BX JEJUNUM B: ANASTOMOSIS RING BX C: BX DUODENUM D: BX GASTRIC POUCH Clinical History Anemia, weight loss, rule out gastric cancer Postoperative diagnosis: Bilroth II with gastrectomy, gastric AVM Final Diagnosis A. JEJUNUM, BIOPSY: SMALL BOWEL MUCOSA WITHOUT SIGNIFICANT PATHOLOGIC FINDINGS. B. ANASTOMOSIS, BIOPSY: JUNCTIONAL (GASTRIC AND SMALL BOWEL)MUCOSA WITH MILD ACUTE AND CHRONIC INFLAMMATION. C. DUODENUM, BIOPSY: SMALL BOWEL MUCOSA WITHOUT SIGNIFICANT PATHOLOGIC FINDINGS. D. GASTRIC POUCH, BIOPSY: GASTRIC OXYNTIC MUCOSA WITH MILD TO MODERATE CHRONIC GASTRITIS. IMMUNOHISTOCHEMICAL STAIN FOR H. PYLORI IS NEGATIVE. Electronically Signed Dagmar Tim M.D. Gross Description A. Received in formalin, labeled "biopsy jejunum" are 3 hernandes, irregular portions of soft tissue ranging from 0.2-0.4 cm. in greatest dimension. The specimens are submitted in toto in one cassette. B. Received in formalin, labeled "biopsy anastomosis" are 3 hernandes, irregular portions of soft tissue ranging from 0.2-0.4 cm. in greatest dimension. The specimens are submitted in toto in one cassette. C. Received in formalin, labeled "biopsy duodenum" are 3 hernandes, irregular portions of soft tissue ranging from 0.1-0.7 cm. in greatest dimension. The specimens are submitted in toto in one cassette. D. Received in formalin, labeled "biopsy gastric pouch" is a hernandes, irregular portion of soft tissue measuring 0.4 cm. in greatest dimension. The specimen is submitted in toto in one cassette. 06/01/201806/01/2018
== END 2018-06-01 15:32 | disposition left against medical advice (07) | DRG 378 ==
LOC: JER 15:22 → JERBED 18:09 → J6S 05-30 00:03
PROVIDERS: ADMIT Internal Medicine; ATTEND Internal Medicine
PROC: 30233N1 Transfusion of Nonautologous Red Blood Cells into Peripheral Vein, Percutaneous Approach (ICD-10-PCS; 2018-05-29)
PROC: 0DD98ZX Extraction of Duodenum, Via Natural or Artificial Opening Endoscopic, Diagnostic (ICD-10-PCS; 2018-06-01)
PROC: 0DD68ZX Extraction of Stomach, Via Natural or Artificial Opening Endoscopic, Diagnostic (ICD-10-PCS; 2018-06-01)
PROC: 0DDA8ZX Extraction of Jejunum, Via Natural or Artificial Opening Endoscopic, Diagnostic (ICD-10-PCS; principal; 2018-06-01 15:15)
DX: K92.2 Gastrointestinal hemorrhage, unspecified (principal); J44.1 Chronic obstructive pulmonary disease with (acute) exacerbation; I10 Essential (primary) hypertension; E11.9 Type 2 diabetes mellitus without complications; I25.10 Atherosclerotic heart disease of native coronary artery without angina pectoris; F17.210 Nicotine dependence, cigarettes, uncomplicated; D50.0 Iron deficiency anemia secondary to blood loss (chronic)
CPT/HCPCS: 36415; 36430; 71045-TC-FY; 71260-TC; 74177-TC; 80048; 80053; 82272; 82607; 82747; 83540; 83550; 85014; 85025; 85027; 85044; 85610; 86850; 86900; 86901; 86922; 88305-TC; 94640; 99284-25; J1756; P9038; P9058

== ENCOUNTER 2019-08-01 14:35 | Inpatient (IN) | payer OTHER ==
--- NOTE | 2019-08-01 14:52 | PDOC ---
Rapid Medical Evaluation Time Seen by Provider: 08/01/19 14:50 Medical Evaluation: Allergies Allergy/AdvReac Type Severity Reaction Status Date / Time No Known Allergies Allergy Verified 05/29/18 15:33 08/01/19 14:50 I have performed a brief in-person evaluation of this patient. The patient presents with a chief complaint of: loss of bowel function x months , worse in last week. diagnosed with liver lesions 06/27, hx of COPD, HTN, DM, asthma, bladder cancer PCP Vivek Junior Manager [employer] Norberto Martínez Pertinent physical exam findings: non tender abdomen, O2 sat 89% I have ordered the following: labs, oxygen The patient will proceed to the ED for further evaluation. Discharge Disposition - Diagnosis Bowel dysfunction - Discharge Dispostion Condition at time of disposition: Stable - Referrals - Patient Instructions - Post Discharge Activity
--- NOTE | 2019-08-01 15:42 | PDOC ---
History of Present Illness - General Chief Complaint: Diarrhea Stated Complaint: DEHYDRATION/SWOLLEN FEET Time Seen by Provider: 08/01/19 14:50 Past History - Past Medical History Allergies/Adverse Reactions: Allergies Allergy/AdvReac Type Severity Reaction Status Date / Time No Known Allergies Allergy Verified 05/29/18 15:33 Home Medications: Ambulatory Orders Unobtainable 08/02/19 Asthma: Yes Cancer: No COPD: Yes (EMPHYSEMA; RESPIRATORY ARREST S/P CYSTO) Diabetes: No (LOW BL.SUGAR) HTN: Yes - Surgical History Abdominal Surgery: Yes (STOMACH ULCER) - Immunization History Immunization Up to Date: Yes - Psycho Social/Smoking Cessation Hx Smoking History: Never smoked Have you smoked in the past 12 months: No Number of Cigarettes Smoked Daily: 70 (2 PPD) Information on smoking cessation initiated: No 'Breaking Loose' booklet given: 12/14/17 Hx Alcohol Use: No Drug/Substance Use Hx: No Substance Use Type: None Hx Substance Use Treatment: No *Physical Exam - Vital Signs Last Vital Signs Temp Pulse Resp BP Pulse Ox 98.3 F 97 H 16 109/54 L 89 L 08/01/19 14:51 08/01/19 14:51 08/01/19 14:51 08/01/19 14:51 08/01/19 14:51 ED Treatment Course - LABORATORY CBC & Chemistry Diagram: 08/02/19 05:30 08/02/19 05:30 Medical Decision Making - Medical Decision Making HPI: 88yo M with PMH of COPD (not on home O2), HTN, DM, asthma, bladder CA, heavy tobacco use, dementia, and a history of respiratory arrest, who presents to the emergency department for unknown reasons. No family members are present at the bedside though the patient's daughter had accompanied him upon arrival. Patient is without acute complaints. Only oriented to person, but not place or time. History limited due to patient's dementia. Per chart review PCP: Dr. Junior Special Education Para Professional: Dr. Orellana ROS: unable to complete (dementia) PE: General: Awake, alert, and oriented x 1, in no acute distress, cachectic Head: No signs of trauma Eyes: EOMI, sclera anicteric ENT: Dry mucus membranes Neck: Normal ROM, supple Lungs: Diffuse crackles present bilaterally Cardio: Regular rhythm, S1 and S2 present Abdomen: Soft, nontender Extremities: Distal pulses present, Pitting edema in bilateral feet SKIN: Warm, Dry, normal turgor Neurologic: Cranial nerves II through XII grossly intact. Normal speech ED Course/MDM: DDX including but not limited to dehydration, failure to thrive, UTI, PNA, malignancy Labs, EKG, CXR 08/01/19 15:42 Call to patient's son, Morgan Shah, as listed in EMR. Patient has had swollen feet. Maybe dehydrated? Urine has been dark orange. He will call patient's daughter for additional history. 08/01/19 16:10 EKG: rate 98, QTc 497, NSR, RBBB, twi in V1-V3 Patient's son, called back stating his sister, Ashleigh, left the hospital. His sister, Lizette, is on her way back to the hospital. 08/01/19 16:40 Patient's daughters at the bedside. They state that patient has had deteriorating health since May. He has been eating poorly. In chronic pain. Urine "looks like molasses and is orange." Supposed to be on 3L home oxygen, but nonadherent. He has had worsening urinary and stool incontinence. They would like placement in a SNF as he is unable to perform ADLs. CBC WBC 9.2 K/mm3 (4.0-10.0) 08/01/19 16:16 RBC 5.87 M/mm3 (4.00-5.60) H 08/01/19 16:16 Hgb 17.0 GM/dL (11.7-16.9) H 08/01/19 16:16 Hct 53.1 % (35.4-49) H 08/01/19 16:16 MCV 90.5 fl (80-96) 08/01/19 16:16 MCH 28.9 pg (25.7-33.7) 08/01/19 16:16 MCHC 32.0 g/dl (32.0-35.9) 08/01/19 16:16 RDW 17.5 % (11.9-15.9) H 08/01/19 16:16 Plt Count 174 K/MM3 (134-434) D 08/01/19 16:16 MPV 8.0 fl (7.5-11.1) 08/01/19 16:16 Absolute Neuts (auto) 7.4 K/mm3 (1.5-8.0) 08/01/19 16:16 Neutrophils % 80.9 % (42.8-82.8) 08/01/19 16:16 Lymphocytes % 11.6 % (8-40) D 08/01/19 16:16 Monocytes % 7.1 % (3.8-10.2) 08/01/19 16:16 Eosinophils % 0.1 % (0-4.5) 08/01/19 16:16 Basophils % 0.3 % (0-2.0) 08/01/19 16:16 Nucleated RBC % 0 % (0-0) 08/01/19 16:16 No leukocytosis CMP Sodium 140 mmol/L (136-145) 08/01/19 16:16 Potassium 4.5 mmol/L (3.5-5.1) 08/01/19 16:16 Chloride 97 mmol/L (98-107) L 08/01/19 16:16 Carbon Dioxide 38 mmol/L (21-32) H 08/01/19 16:16 Anion Gap 5 MMOL/L (8-16) L 08/01/19 16:16 BUN 26.7 mg/dL (7-18) H 08/01/19 16:16 Creatinine 0.7 mg/dL (0.55-1.3) 08/01/19 16:16 Est GFR (CKD-EPI)AfAm 99.04 08/01/19 16:16 Est GFR (CKD-EPI)NonAf 85.45 08/01/19 16:16 Random Glucose 84 mg/dL (74-106) 08/01/19 16:16 Calcium 9.8 mg/dL (8.5-10.1) 08/01/19 16:16 Total Bilirubin 1.2 mg/dL (0.2-1) H 08/01/19 16:16 AST 140 U/L (15-37) H 08/01/19 16:16 ALT 102 U/L (13-61) H 08/01/19 16:16 Alkaline Phosphatase 1064 U/L (45-117) H 08/01/19 16:16 Creatine Kinase 57 U/L (26-308) 08/01/19 16:16 Troponin I 0.78 ng/ml (0.00-0.05) H* 10/17/19 16:16 Total Protein 9.2 g/dl (6.4-8.2) H 08/01/19 16:16 Albumin 4.0 g/dl (3.4-5.0) 08/01/19 16:16 Electrolytes unremarkable Cr normal Elevated ALT, AST, and ALP Elevated Tpn, 0.78 UA with signs of infection; covered with Rocephin Gentle fluid hydration with 250cc NS Patient agitated; placed in vest, given ativan Given agitation, CT head ordered. Patient with history of malignancy, elevated tpn, and hypoxia, decision made to obtain chest CTA to rule out PE. Sent to CT scan 08/01/19 20:03 Daughters called and I updated them over the phone Ashleigh, Lizette, 08/01/19 20:23 CXR as read by radiology: "Portable chest x-ray, AP sitting. Since prior chest x -ray dated 05/30/2018, there are increased atelectatic changes in the left lung base. The cardiac silhouette remains probably within normal limits in size. Right lung is clear. Mediastinum and visualized osseous structures appear intact Impression: Interval atelectatic changes and probable infiltrates in the left lung base. " CT Head as read by radiology: "CT scan of the brain. A noncontrast CT scan of the brain was performed. Compared to prior CT scan of the head dated 12/13/2017 There is moderate volume loss and ventricular dilatation. Moderate to marked periventricular chronic microvascular ischemic changes are present No mass lesion, gross acute infarct or intracranial hemorrhage are identified. Visualized paranasal sinuses and mastoid air cells are well aerated. Moderate deviation of the nasal septum towards the left. Calcification of the cavernous carotid arteries are noted. The calvarium is intact . Impression: Moderate atrophy. No gross evidence of a focal intracranial lesion or hemorrhage is seen. Correlate clinically to determine further evaluation and follow-up. " Pending CTA report 08/01/19 20:43 CTA as read by radiology: "A post intravenous contrast CT angiogram of the chest was performed utilizing pulmonary embolus protocol. Coronal/ sagittal reconstruction images were obtained. 76 cc of Omnipaque 350 was intravenously injected Compared to prior CT scan of the chest dated 05/31/[address] scan of the abdomen pelvis dated 05/31/2018 No gross filling defect is seen within the main pulmonary artery and its proximal branches, bilaterally. Normal size and enhancement of the thoracic aorta with multiple calcified atheromatous plaques present. The heart is within normal limits in size. No gross mediastinal or hilar enlarged lymph nodes are identified. Moderately severe COPD changes again seen with atelectatic changes and airspace opacities in the left lung base. Previously visualized nodule in the medial aspect of the right lower lobe has significantly increased in size since see prior examination now measuring 2.5 x 1.3 cm appear to prior examination measured 11 mm. No other gross pulmonary nodules are identified. In included portion of the upper abdomen , there are multiple low-attenuation densities in included portion of the liver with the largest measuring 7.5 cm highly suspicious for metastasis. Heterogeneous enhancement and multiple focal low-attenuation densities in the spleen that may be due to rapid intravenous contrast administration. Cannot rule out metastatic lesions. There are multiple dense calcified plaques in included abdominal aorta with a thin calcific density seen within the lumen of the included infrarenal abdominal aorta, axial image 124 which is the last obtained images suggestive of chronic dissections since it was present on the prior exam. Visualized osseous structures appear grossly intact Impression: See discussion above. There is no gross evidence of a pulmonary embolus in the main pulmonary artery and its proximal branches, bilaterally. Severe COPD changes again seen. Interval increase in size of previously visualized pleural-based nodule/mass in the medial aspect of the right lower lobe now measuring 2.5 x 1.3 cm. Interval multiple low-attenuation densities in included portion of the liver with the largest measuring 7.5 cm that are highly suspicious for metastasis. Heterogeneous attenuation and enhancement of the spleen that may be due to rapid intravenous contrast administration. However, metastatic lesions cannot be excluded. " 08/01/19 21:[address] Junior, 08/01/19 21:[address] Junior who accepted patient for telemetry admission under himself Cardiology consult to Dr. Ocampo placed per Dr. Junior's request 08/01/19 21:40 Another 250cc ordered for gentle fluid hydration Discharge - Discharge Information Problems reviewed: Yes Clinical Impression/Diagnosis: Bowel dysfunction Failure to thrive Qualifiers: Failure to thrive age range: in adult Qualified Code(s): R62.7 - Adult failure to thrive UTI (urinary tract infection) Qualifiers: Urinary tract infection type: site unspecified Hematuria presence: without hematuria Qualified Code(s): N39.0 - Urinary tract infection, site not specified Condition: Guarded - Admission Yes - Follow up/Referral - Patient Discharge Instructions - Post Discharge Activity
[2019-08-01 16:45] LABS: BASO % 0.3 % (0-2.0); EOS % 0.1 % (0-4.5); HEMATOCRIT 53.1 % (35.4-49); LYMPH % 11.6 % (8-40); MCH 28.9 pg (25.7-33.7); MEAN CELL VOLUME 90.5 fl (80-96); MONO % 7.1 % (3.8-10.2); NEUT % 80.9 % (42.8-82.8); PLATELET COUNT 174 K/MM3 (134-434); RBC 5.87 M/mm3 (4.00-5.60); RDW 17.5 % (11.9-15.9); WHITE BLOOD COUNT 9.2 K/mm3 (4.0-10.0)
[2019-08-01 17:04] LABS: INR 1.03 (0.83-1.09); PROTHROMBIN TIME (PATIENT) 12.1 SEC (9.7-13.0)
[2019-08-01 17:29] LABS: BILIRUBIN,TOTAL 1.2 mg/dL (0.2-1); BLOOD UREA NITROGEN 26.7 mg/dL (7-18); CALCIUM 9.8 mg/dL (8.5-10.1); CREATININE 0.7 mg/dL (0.55-1.3); POTASSIUM 4.5 mmol/L (3.5-5.1); TOT PROT 9.2 g/dl (6.4-8.2)
[2019-08-01] MEDS ORDERED: SODIUM CHLORIDE 0.9% 1000 ML INFUS.BAG IV ONE (17:38)
[2019-08-01] MEDS ORDERED: ASPIRIN 81 MG CHEWABLE TABLETS PO ONE (18:07)
[2019-08-01 18:55] LABS: EPI CELLS 7.1 /HPF (0-5/HPF); HYALINE CASTS 16 /lpf (0-8); URINE APPEARANCE CLEAR; URINE BACTERIA 10.2 /hpf (NEGATIVE); URINE BILIRUBIN 2+ (NEGATIVE); URINE COLOR ORANGE; URINE GLUCOSE (UA) NEGATIVE (NEGATIVE); URINE KETONE TRACE (NEGATIVE); URINE LEUK ESTERASE TRACE (NEGATIVE); URINE NITRITE POSITIVE (NEGATIVE); URINE PROTEIN 2+ (NEGATIVE); URINE RBC 1 /hpf (0-4); URINE WBC 5 /hpf (0-5)
[2019-08-01] MEDS ORDERED: CEFTRIAXONE 1,000 MG in DEXTROSE 5%-WATER - 50 ML IVPB ONE (19:14)
--- NOTE | 2019-08-01 19:27 | PDOC ---
Documentation entered by Kathrin Carbone SCRIBE, acting as scribe for Dinora Deluca MD. Dinora Deluca MD: This documentation has been prepared by the Tona steve Adrianna, SCRIBE, under my direction and personally reviewed by me in its entirety. I confirm that the documentation accurately reflects all work, treatment, procedures, and medical decision making performed by me. Attending Attestation - Resident Resident Name: Jackelyn Koehler - ED Attending Attestation I have performed the following: I have examined & evaluated the patient, The case was reviewed & discussed with the resident, I agree w/resident's findings & plan, Exceptions are as noted - HPI HPI: The patient is an 88 year old male, with a significant PMH of COPD (not on home O2), HTN, DM, asthma, metastatic bladder CA, heavy tobacco use, and a history of respiratory arrest, who presents to the ED with his daughter with agitation, decreased PO intake, generalized weakness, weight loss, and progressive urine and stool incontinence. History limited from pt due to clinical condition, mostly from pt's daughter who states they are unable to care for him anymore. Children request placement in a nursing facility and brought him in today for this reason. Denies fevers, chills, dizziness, cp, sob, focal weakness/numbness , abd pain, LE edema. Allergies: NKA, NKDA Past surgical history: abdominal Sx for peptic ulcer PCP - Dr. Junior Real Estate Closing Coordinator: Dr. Orellana - Physicial Exam PE: Agree with resident exam - Medical Decision Making 88yo F with MMP including metastatic bladder ca presents to the ED with failure to thrive picture Vitals with hypoxia to 89% Labs with hgb 17 (likely 2/2 hemoconcentration), will hydrate gently with 250cc bolus NS to start trop+ 0.8 ?demand Concern for PE due to hypoxia, +trop, and active malignancy Plan for CTH for agitation to look for brain mets and CTA to r/o PE With regards to worsening urine/stool incontinence, it is possible pt also has spinal mets and will need MRI imaging to evaluate. Given concern for PE and elevated trop however, will initiate w/u in ED to r/o PE at first and defer to admitting team for MRI spine (if consistent with pt's GOC). Anticipate admission once CTH/CTA complete Heart Score/ECG Review #1 08/01/19 19:25 NSR, rate 98, normal axis. +RBBB, no CLAUDIA
[2019-08-01] MEDS ORDERED: CEFTRIAXONE 1 GM/50 ML BAG ONE (19:35)
[2019-08-01] MEDS ORDERED: LORazepam 0.5 MG TABLET ONE (19:38)
[2019-08-01] MEDS ORDERED: LORazepam 2 MG/ML SDV VIAL ONE ×2 (19:41→19:42)
[2019-08-01 20:27] LABS: N-TERMINAL BNP 724.9 pg/ml (5-450)
[2019-08-01] MEDS ORDERED: SODIUM CHLORIDE 250 ML IV STA (23:15)
[2019-08-02] MEDS: SODIUM CHLORIDE 1,000 ML IV SCH (00:48)
[2019-08-02 05:56] LABS: HEMATOCRIT 45.5 % (35.4-49); HEMOGLOBIN 14.9 GM/dL (11.7-16.9); MCH 29.4 pg (25.7-33.7); MCHC 32.7 g/dl (32.0-35.9); MEAN CELL VOLUME 89.8 fl (80-96); MEAN PLT VOLUME 8.2 fl (7.5-11.1); PLATELET COUNT 163 K/MM3 (134-434); RBC 5.06 M/mm3 (4.00-5.60); RDW 17.7 % (11.9-15.9)
[2019-08-02 06:27] LABS: ALBUMIN 3.5 g/dl (3.4-5.0); CALCIUM 9.2 mg/dL (8.5-10.1); CREATININE 0.8 mg/dL (0.55-1.3); POTASSIUM 4.6 mmol/L (3.5-5.1); TOT PROT 7.6 g/dl (6.4-8.2)
[2019-08-02] MEDS: INSULIN SLIDING SCALE (NOVOLOG) 1 VIAL SQ SCH ×2 (06:35→16:55)
[2019-08-02] MEDS ORDERED: PNEUMOC 13-VAL CONJ-DIP CRM/PF 0.5 ML DISP.SYRIN IM ONE (09:00)
--- NOTE | 2019-08-02 12:51 | EKG ---
Test Reason : Blood Pressure : / mmHG Vent. Rate : 098 BPM Atrial Rate : 098 BPM P-R Int : 122 ms QRS Dur : 126 ms QT Int : 390 ms P-R-T Axes : 087 070 052 degrees QTc Int : 497 ms NORMAL SINUS RHYTHM RIGHT ATRIAL ENLARGEMENT RIGHT BUNDLE BRANCH BLOCK CANNOT RULE OUT INFERIOR INFARCT , AGE UNDETERMINED ABNORMAL ECG WHEN COMPARED WITH ECG OF 13-DEC-2017 19:07, RIGHT BUNDLE BRANCH BLOCK HAS REPLACED NON-SPECIFIC INTRA-VENTRICULAR CONDUCTION BLOCK MINIMAL CRITERIA FOR INFERIOR INFARCT ARE NOW PRESENT Confirmed by MIKKI KANG MD ([id number]) on 08/02/2019 12:51:24 PM Referred By: Confirmed By:MIKKI KANG MD
--- NOTE | 2019-08-02 12:59 | CON.CARD ---
Consult Consult Specialty:: Cardiology Referred by:: Dr. Junior - History of Present Illness History of Present Illness: CHIEF COMPLAINT: 1. Weakness. 2. Lethargy. Patient is an 88-year-old gentleman was brought to the emergency room by his daughter because of progressive lethargy, weakness, progressive weight loss and incontinence of both stool and urine. Patient has longstanding history of coronary artery disease, angina pectoris, chronic bronchitis/COPD, O2 dependent , hypertension, hypertensive cardiovascular disease, tobacco abuse. According to his daughter he has developed progressive lethargy and generalized weakness, apparently his appetite has been poor he also has been losing control over his bodily functions and has lost a significant amount of weight. No history of chest pain or discomfort is available, has chronic dyspnea and has a chronic cough. No history of expectoration and hemoptysis is available. Patient is poorly responsive and unable to provide a history. PAST HISTORY: History of cardiopulmonary arrest back in January 2015, while undergoing urological procedure after he had received Versed, Toradol, and ceftriaxone and was hospitalized at [facility]. History of urinary bladder polyps. ? Cancer of the prostate. Status post peptic ulcer disease in the 1960s. History of anemia. ? History of dementia. SURGICAL HISTORY: Status post gastric surgery for bleeding peptic ulcer disease back in 1966. No information is available regarding other surgical procedures. 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 Has 2 sons and 3 daughters. One of his sons apparently of organic brain syndrome at age 35. He has been smoking since his teenage years and used to smoke 4-5 packets per day, currently smoking 2 packets per day. Drinks 4-5 cups of coffee and has a rare drink (obtained from previous history). FAMILY HISTORY: Father had in his 80s, mother when he was 5 years old ; cause of their deaths is unknown. He has 3 step-brothers and step-sisters and also has a brother and a sister from his mother. Two of his step-brothers are , and his sister in her 40s, apparently of "lymphatic tumor." ALLERGIES: None documented. Active Medications Generic Name Dose Route Start Last Admin Trade Name Freq PRN Reason Stop Dose Admin Aspirin 81 mg 08/02/19 10:00 08/02/19 13:17 Ecotrin - PO Not Given DAILY SALVADOR Sodium Chloride 1,000 mls @ 42 mls/hr 08/02/19 00:45 08/02/19 00:48 Normal Saline - IV 42 mls/hr ASDIR SALVADOR Administration Insulin Aspart 1 vial 08/02/19 07:00 08/02/19 06:35 Novolog Vial Sliding Scale - SQ Not Given BIDAC [facility] Protocol REVIEW OF SYSTEMS: Constitutional: History is not available. History of unintentional weight loss. HEENT: History is not available. Respiratory: See history of present illness. Cardiovascular: See history of present illness. Gastrointestinal: According to daughter patient has had bowel incontinence and has poor appetite. Genitourinary: History of urinary incontinence. Musculoskeletal: History is not available. Endocrine: History is not available. Neurological: See history of present illness. Hematological: History is not available. Lymphatic: History is not available. PHYSICAL EXAMINATION: General: 88-year-old gentleman was in no acute distress. No pallor was appreciated. No clubbing or jaundice. Last Vital Signs Temperature 98.9 F 08/02/19 10:00 Pulse Rate 105 H 08/02/19 10:00 Respiratory Rate 26 H 08/02/19 10:00 Blood Pressure 131/58 L 08/02/19 10:00 O2 Sat by Pulse Oximetry (%) 93 L 08/02/19 09:00 Neck: Supple. No jugular venous distention. Hepatojugular reflux was negative. Carotids were 2+. Upstrokes were normal. No bruits were heard, and no thyromegaly was present. Heart: PMI was in the fifth intercostal space. Heart sounds were distant. Unable to appreciate murmurs, gallops or rubs. Lungs: Decreased breath sounds bilaterally, fine crepitations at the left base. Abdomen: Soft and nontender. Liver is 4 to 5 fingerbreadth below the right intercostal margin, is probable nodular and is nontender. No splenomegaly is appreciated. Well-healed midline abdominal scar. No masses were felt. Extremities: No calf tenderness or dependent edema. Femoral pulses were 2+. Dorsalis pedis and posterior tibial pulses were not palpable. ECG: Dated: 08/01/19 NORMAL SINUS RHYTHM RIGHT ATRIAL ENLARGEMENT RIGHT BUNDLE BRANCH BLOCK CANNOT RULE OUT INFERIOR INFARCT , AGE UNDETERMINED ABNORMAL ECG WHEN COMPARED WITH ECG OF 13-DEC-2017 19:07, RIGHT BUNDLE BRANCH BLOCK HAS REPLACED NON-SPECIFIC INTRA-VENTRICULAR CONDUCTION BLOCK MINIMAL CRITERIA FOR INFERIOR INFARCT ARE NOW PRESENT Chest x-ray Dated: 08/01/19 Impression: Interval atelectatic changes and probable infiltrates in the left lung base. CTA Chest: Dated: 08/01/19 Impression: See discussion above. There is no gross evidence of a pulmonary embolus in the main pulmonary artery and its proximal branches, bilaterally. Severe COPD changes again seen. Interval increase in size of previously visualized pleural-based nodule/mass in the medial aspect of the right lower lobe now measuring 2.5 x 1.3 cm. Interval multiple low-attenuation densities in included portion of the liver with the largest measuring 7.5 cm that are highly suspicious for metastasis. Heterogeneous attenuation and enhancement of the spleen that may be due to rapid intravenous contrast administration. However, metastatic lesions cannot be excluded. LAB DATA: Laboratory Results - last 24 hr 08/01/19 08/01/19 08/01/19 16:16 16:16 16:16 WBC 9.2 RBC 5.87 H Hgb 17.0 H Hct 53.1 H MCV 90.5 MCH 28.9 MCHC 32.0 RDW 17.5 H Plt Count 174 D MPV 8.0 Absolute Neuts (auto) 7.4 Neutrophils % 80.9 Lymphocytes % 11.6 D Monocytes % 7.1 Eosinophils % 0.1 Basophils % 0.3 Nucleated RBC % 0 PT with INR INR Sodium 140 Potassium 4.5 Chloride 97 L Carbon Dioxide 38 H Anion Gap 5 L BUN 26.7 H Creatinine 0.7 Est GFR (CKD-EPI)AfAm 99.04 Est GFR (CKD-EPI)NonAf 85.45 Random Glucose 84 Calcium 9.8 Total Bilirubin 1.2 H AST 140 H ALT 102 H Alkaline Phosphatase 1064 H Creatine Kinase 57 Troponin I 0.78 H* B-Natriuretic Peptide 724.9 H Total Protein 9.2 H Albumin 4.0 Lipase 62 L Urine Color Urine Appearance Urine pH Ur Specific [place] Urine Protein Urine Glucose (UA) Urine Ketones Urine Blood Urine Nitrite Urine Bilirubin Urine Urobilinogen Ur Leukocyte Esterase Urine WBC (Auto) Urine RBC (Auto) Urine Casts (Auto) U Epithel Cells (Auto) U Sm Round Cell (Auto) Urine Bacteria (Auto) 08/01/19 08/01/19 08/01/19 16:16 17:50 23:45 WBC RBC Hgb Hct MCV MCH MCHC RDW Plt Count MPV Absolute Neuts (auto) Neutrophils % Lymphocytes % Monocytes % Eosinophils % Basophils % Nucleated RBC % PT with INR 12.10 INR 1.03 Sodium Potassium Chloride Carbon Dioxide Anion Gap BUN Creatinine Est GFR (CKD-EPI)AfAm Est GFR (CKD-EPI)NonAf Random Glucose Calcium Total Bilirubin AST ALT Alkaline Phosphatase Creatine Kinase Troponin I 0.61 H* B-Natriuretic Peptide Total Protein Albumin Lipase Urine Color [place] Urine Appearance Clear Urine pH 5.0 Ur Specific [place] 1.028 Urine Protein 2+ H Urine Glucose (UA) Negative Urine Ketones Trace H Urine Blood Negative Urine Nitrite Positive H Urine Bilirubin 2+ H Urine Urobilinogen 2.0 Ur Leukocyte Esterase Trace Urine WBC (Auto) 5 Urine RBC (Auto) 1 Urine Casts (Auto) 16 U Epithel Cells (Auto) 7.1 U Sm Round Cell (Auto) None Urine Bacteria (Auto) 10.2 08/02/19 08/02/19 05:30 05:30 WBC 12.0 H RBC 5.06 Hgb 14.9 Hct 45.5 MCV 89.8 MCH 29.4 MCHC 32.7 RDW 17.7 H Plt Count 163 MPV 8.2 Absolute Neuts (auto) Neutrophils % Lymphocytes % Monocytes % Eosinophils % Basophils % Nucleated RBC % PT with INR INR Sodium 140 Potassium 4.6 Chloride 98 Carbon Dioxide 35 H Anion Gap 7 L BUN 31.0 H Creatinine 0.8 Est GFR (CKD-EPI)AfAm 93.75 Est GFR (CKD-EPI)NonAf 80.89 Random Glucose 117 H Calcium 9.2 Total Bilirubin 1.0 AST 103 H ALT 85 H Alkaline Phosphatase 873 H Creatine Kinase 88 Troponin I 0.60 H B-Natriuretic Peptide Total Protein 7.6 Albumin 3.5 Lipase Urine Color Urine Appearance Urine pH Ur Specific [place] Urine Protein Urine Glucose (UA) Urine Ketones Urine Blood Urine Nitrite Urine Bilirubin Urine Urobilinogen Ur Leukocyte Esterase Urine WBC (Auto) Urine RBC (Auto) Urine Casts (Auto) U Epithel Cells (Auto) U Sm Round Cell (Auto) Urine Bacteria (Auto) IMPRESSION: 1. Athrosclerotic heart disease/angina pectoris, suspect acute coronary syndrome. 2. Abnormal liver function test, hepatomegaly, and abdominal CT is highly suspicious for metastatic disease. 3. Oxygen dependent COPD/chronic bronchitis. 4. Tobacco abuse. 5. Dehydration, corrected. 6. 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 7. Elevated BNP most likely related to either advanced COPD, congestive heart failure and possibly related to advanced carcinoma. 8. ? history of dementia. RECOMMENDATION: 1. As patient is unable to take oral medications because of lethargy etc. consider placing him on topical nitrates. 2. Followup ECG and enzymes. 3. and daughter were aware of his cardiac status and overall medical status. 4. Further evaluation and workup is in progress. PROGNOSIS: Critical. Thank you for your referral. Yours sincerely, IAN ARORA M.D. [id number] time spent with patient, evaluating hospital records and with family 45 minutes. - Past Medical History Cardio/Vascular: Yes: HTN, Hyperlipdemia, Other (severe peripheral vascular disease by CT, suspect ASHD) Pulmonary: Yes: COPD, Pneumonia (12/03), Other (current smoker, home oxygen dependent) Gastrointestinal: Yes: Constipation, Peptic Ulcer Disease (with bleeding leading to partial gastrectomy) Renal/: Yes: Cancer (bladder cancer- transitional cell, prostate cancer per the chart- Ken denies this), Renal Calculi, Other (PAST PROSTATE CA) Endocrine: Yes: Diabetes Mellitus - Alcohol/Substance Use Hx Alcohol Use: No History of Substance Use: reports: None - Smoking History Smoking history: Former smoker Have you smoked in the past 12 months: No Aproximately how many cigarettes per day: 70 (2 PPD) - Social History Usual Living Arrangement: With Spouse ADL: Independent 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 Travel: No Home Medications - Allergies Allergies/Adverse Reactions: Allergies Allergy/AdvReac Type Severity Reaction Status Date / Time No Known Allergies Allergy Verified 05/29/18 15:33 - Home Medications Home Medications: Ambulatory Orders Unobtainable 08/02/19 Vital Signs: Vital Signs Temperature 98.9 F 08/02/19 10:00 Pulse Rate 105 H 08/02/19 10:00 Respiratory Rate 26 H 08/02/19 10:00 Blood Pressure 131/58 L 08/02/19 10:00 O2 Sat by Pulse Oximetry (%) 93 L 08/02/19 09:00 - Other Data Labs, Other Data: CBC, BMP 08/02/19 05:30 08/02/19 05:30 INR, PTT INR 1.03 (0.83-1.09) 08/01/19 16:16 Troponin, BNP 08/01/19 08/01/19 08/02/19 16:16 23:45 05:30 Troponin I 0.78 H* 0.61 H* 0.60 H B-Natriuretic Peptide 724.9 H Troponin, BNP 08/01/19 08/01/19 08/02/19 16:16 23:45 05:30 Troponin I 0.78 H* 0.61 H* 0.60 H B-Natriuretic Peptide 724.9 H
[2019-08-02] MEDS: ASPIRIN COATED 81 MG TABLET.EC PO SCH (13:17)
--- NOTE | 2019-08-02 13:34 | HP ---
Admitting History and Physical - Primary Care Physician PCP: Vivek Junior - Admission Chief Complaint: health decline History of Present Illness: Pt with known Hx/o advanced COPD on continue oxygen supplementation, smoker ( up to 3-4 packs/ day at maximum; started since a teenager; recently up to 2 packs per day), lung nodule ( refused follow up and work up), anemia (requiring PRBC transfusion, refused full workup), liver mets (recent diagnosis, HCP decline outpatient work up and treatment -after consulting with her sister, brother and mother) brought in by his family for steady decline in his health, for the last few days with minimal PO intake (eating and drinking), stool and urine incontinency, lethargy. History Source: Family Member (Daughters: Vilma and Lizette; Pt's Lizette gutierrez, and his are at bedside.) - Past Medical History Cardiovascular: Yes: CAD, HTN, Hyperlipdemia, Other (severe peripheral vascular disease by CT; cardiac arrest) Pulmonary: Yes: COPD, Pneumonia (12/03), Other (current smoker, home oxygen dependent Lung nodule) Gastrointestinal: Yes: Constipation, Peptic Ulcer Disease (with bleeding leading to partial gastrectomy), Other (Liver metastasis) Renal/: Yes: Cancer (bladder cancer- transitional cell, prostate cancer per the chart- Ken denies this), Renal Calculi Heme/Onc: Yes: Anemia Endocrine: Yes: Diabetes Mellitus (diet controlled) - Smoking History Smoking history: Former smoker Have you smoked in the past 12 months: No Aproximately how many cigarettes per day: 70 (2 PPD) - Alcohol/Substance Use Hx Alcohol Use: No History of Substance Use: reports: None - Social History ADL: Independent 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 Travel: No Home Medications - Allergies Allergies/Adverse Reactions: Allergies Allergy/AdvReac Type Severity Reaction Status Date / Time No Known Allergies Allergy Verified 05/29/18 15:33 - Home Medications Home Medications: Ambulatory Orders Albuterol 2.5/Ipratropium 0.5 [Duoneb -] 1 amp NEB Q6H PRN amp 08/08/19 Aspirin Coated [Ecotrin -] 81 mg PO DAILY tablet.ec 08/08/19 Cefuroxime Axetil [Ceftin -] 250 mg PO BID #2 tablet MDD 2 08/08/19 Insulin Sliding Scale [Novolog Vial Sliding Scale -] 1 vial SQ BIDAC units Nicotine Patch [Nicoderm Patch -] 21 mg TD DAILY patch 08/08/19 Olanzapine [Zyprexa -] 5 mg PO HS tablet 08/08/19 Review of Systems Findings/Remarks: unable to obtain secondary to lethargy Physical Examination Vital Signs: Vital Signs Temperature 99.1 F 08/02/19 13:00 Pulse Rate 102 H 08/02/19 13:00 Respiratory Rate 28 H 08/02/19 13:00 Blood Pressure 131/69 08/02/19 13:00 O2 Sat by Pulse Oximetry (%) 93 L 08/02/19 09:00 Findings/Remarks: limited, secondary to pt's lack of cooperation. Constitutional: Yes: No Distress, Other (on face mask) Cardiovascular: Yes: Regular Rate and Rhythm, S1, S2 Respiratory: Yes: Regular, Rhonchi (minimal. scaterred), Other (coarse breath sound) Gastrointestinal: Yes: Normal Bowel Sounds, Soft. No: Tenderness ...Rectal Exam: Yes: Deferred Renal/: No: Bladder Distention Edema: No Neurological: Yes: Other (Arousable) Labs: CBC, BMP 08/02/19 05:30 08/02/19 05:30 Imaging - Results Chest X-ray: Report Reviewed Cat Scan: Report Reviewed Problem List - Problems (1) Cardiac enzymes elevated Code(s): R74.8 - ABNORMAL LEVELS OF OTHER SERUM ENZYMES (2) Failure to thrive in adult Code(s): R62.7 - ADULT FAILURE TO THRIVE (3) Liver metastasis Code(s): C78.7 - SECONDARY MALIG NEOPLASM OF LIVER AND INTRAHEPATIC BILE DUCT (4) CAD (coronary artery disease) Code(s): I25.10 - ATHSCL HEART DISEASE OF [place] CORONARY ARTERY W/O ANG PCTRS (5) UTI (urinary tract infection) Code(s): N39.0 - URINARY TRACT INFECTION, SITE NOT SPECIFIED Qualifiers: Urinary tract infection type: site unspecified Hematuria presence: without hematuria Qualified Code(s): N39.0 - Urinary tract infection, site not specified (6) COPD (chronic obstructive pulmonary disease) Code(s): J44.9 - CHRONIC OBSTRUCTIVE PULMONARY DISEASE, UNSPECIFIED (7) PUD (peptic ulcer disease) Code(s): K27.9 - PEPTIC ULC, SITE UNSP, UNSP AC OR CHR, W/O HEMOR OR PERF (8) GI (gastrointestinal bleed) Code(s): K92.2 - GASTROINTESTINAL HEMORRHAGE, UNSPECIFIED (9) Diabetes mellitus Code(s): E11.9 - TYPE 2 DIABETES MELLITUS WITHOUT COMPLICATIONS Assessment/Plan Admit to Telemetry serial CE Cardio consult; pt's condition was d/w Dr Arboleda over the phone and at bedside; considering pt's PMHX/o PUD, anemia requiring PRBC transfusions and incomplete work-up, 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 Vasc Sx consult. IV abtx, ID consult. Pt's condition was d/w both daughter over the phone; they would like to know about pt's liver lessions/mets origine. Onco consult. Prognosis: poor. DNR and DNI were reviewed with pt's daughter, HCP; she is considering DNR but wants to talk with her sister. AM labs. Pt's condition was reviewed with pt's nurse
--- NOTE | 2019-08-02 14:54 | CONSULT ---
<Teodoro Charles P - Last Filed: 08/02/19 15:30> - Consultation REQUESTING PROVIDER: Vascular Surgery - Sammy Buenrostro CONSULT REQUEST: We have been asked to surgically evaluate this patient for ? AAA. PCP: Vivek Junior History Source: Family Member (Daughters: Vilma and Lizette) & Current/Past medical charting HPI: Called to eval 88 yo male w/ extensive PMHx as noted below. Brought to [facility] ED for further evaluation of his declining condition --> (lung nodule ( refused f/u & or work-up), more recently diagnosed with liver mets (HCP declined out-pt work up and treatment). Progressive lethargy, weakness, progressive weight loss and incontinence of both stool and urine. Patient is poorly responsive and unable to provide a history. Smoking history: 3-4 packs/ day since a was a teenager PMHx: Cardiopulmonary arrest back in January 2015, while undergoing urological procedure after he had received Versed, Toradol, and ceftriaxone. HTN, HLD, Angina Pectoris, PVD, Asthma, COPD (home O2 dependant), PNA, Pulmonary nodules, Constipation, PUD (w/ h/o bleed --> partial gastrectomy), Liver metastasis, Bladder/Prostate CA (transitional cell), Renal calculi, Anemia , DM PSHx Partial gastrectomy (bleeding Peptic Ulcer) 1967 Home Meds ASA 81 mg PO daily Novolog Allergies: NKDA ROS: Unable to obtain PE: GEN: lethargic. weak. failure to thrive. ABD: Soft, nt, nd, no guarding, no rebound, no masses. No organomegaly. No palpable pulsatile mass. UE: 2+ pulses, warm, well-perfused. No cyanosis. Cap refill <2 seconds. No peripheral edema. LE: 2+ pulses, warm, well-perfused. No calf tenderness. No peripheral edema. SKIN: Warm, dry, normal turgor, no rashes or lesions noted. Last Vital Signs Temp Pulse Resp BP Pulse Ox 99.1 F 102 H 28 H 131/69 93 L 08/02/19 13:00 08/02/19 13:00 08/02/19 13:00 08/02/19 13:00 08/02/19 09:00 CBC, BMP 08/02/19 05:30 08/02/19 05:30 INR, PTT INR 1.03 (0.83-1.09) 08/01/19 16:16 Problem List - Problems (1) Failure to thrive in adult Assessment/Plan: 88 yo male admitted to [facility] w/ lethargy, weakness, poor appetite, fecal/urinary incontinence. Recently diagnosed with liver metastasis. Patient had CTA which identified multiple dense calcified plaques in the abdominal aorta w/ thin calcific density w/i the lumen of infrarenal abdominal aorta. No evidence of dilation or acute dissection. Cont care per ICU No further vascular surgery input needed Reconsult PRN Above plan discussed with my attending and agrees. On behalf of Dr. Buenrostro, thank you for the opportunity to participate in your patient's care. Code(s): R62.7 - ADULT FAILURE TO THRIVE (2) COPD (chronic obstructive pulmonary disease) Code(s): J44.9 - CHRONIC OBSTRUCTIVE PULMONARY DISEASE, UNSPECIFIED (3) HTN (hypertension) Code(s): I10 - ESSENTIAL (PRIMARY) HYPERTENSION (4) PUD (peptic ulcer disease) Code(s): K27.9 - PEPTIC ULC, SITE UNSP, UNSP AC OR CHR, W/O HEMOR OR PERF (5) Pneumonia Code(s): J18.9 - PNEUMONIA, UNSPECIFIED ORGANISM Qualifiers: Pneumonia type: due to unspecified organism Laterality: left Lung location: lower lobe of lung Qualified Code(s): J18.1 - Lobar pneumonia, unspecified organism (6) Weight loss Code(s): R63.4 - ABNORMAL WEIGHT LOSS (7) Liver metastasis Code(s): C78.7 - SECONDARY MALIG NEOPLASM OF LIVER AND INTRAHEPATIC BILE DUCT Visit type - Case Type Case Type: ED Admission - Emergency Emergency Visit: Yes ED Registration Date: 08/01/19 Care time: The patient presented to the Emergency Department on the above date and was hospitalized for further evaluation of their emergent condition. - New patient This patient is new to me today: Yes Date on this admission: 08/02/19 <Sammy Buenrostro - Last Filed: 08/05/19 08:55> - Consultation REQUESTING PROVIDER: CONSULT REQUEST: We have been asked to surgically evaluate this patient for ( specify). PCP:Vivek Junior HISTORY OF PRESENT ILLNESS: PMHx: PSHx: Home Medications Medication Instructions Recorded Unobtainable 08/02/19 Allergies Allergy/AdvReac Type Severity Reaction Status Date / Time No Known Allergies Allergy Verified 05/29/18 15:33 REVIEW OF SYSTEMS: CONSTITUTIONAL: Absent: fever, chills, diaphoresis, generalized weakness, malaise, loss of appetite, weight change CARDIOVASCULAR: Absent: chest pain, syncope, palpitations, irregular heart rate, lightheadedness , peripheral edema RESPIRATORY: Absent: cough, shortness of breath, dyspnea with exertion, wheezing, stridor, hemoptysis GASTROINTESTINAL: Absent: abdominal pain, abdominal distension, nausea, vomiting, diarrhea, constipation, melena, hematochezia GENITOURINARY: Absent: dysuria, frequency, urgency, hesitancy, hematuria, flank pain, genital pain MUSCULOSKELETAL: Absent: myalgia, arthralgia, joint swelling, back pain, neck pain SKIN: Absent: rash, itching, pallor HEMATOLOGIC/IMMUNOLOGIC: Absent: easy bleeding, easy bruising, lymphadenopathy NEUROLOGIC: Absent: headache, focal weakness, paresthesias, dizziness, unsteady gait, seizure, mental status changes, bladder or bowel incontinence PSYCHIATRIC: Absent: anxiety, depression, suicidal or homicidal ideation, hallucinations. PHYSICAL EXAM: GENERAL: Awake, alert, and fully oriented, in no acute distress. HEAD: Normal with no signs of trauma. EYES: PERRL, sclera anicteric, conjunctiva clear. NECK: Normal ROM, supple without lymphadenopathy, JVD, or masses. LUNGS: Clear to auscultation bilat anteriorly. No wheezes, and no crackles. No accessory muscle use. HEART: Regular rate and rhythm. No murmurs ABDOMEN: Soft, nontender, not distended, normoactive bowel sounds, no guarding, no rebound, no masses. No organomegaly. MUSCULOSKELETAL: Normal ROM at all joints. No bony deformities or tenderness. No CVA tenderness. UPPER EXTREMITIES: 2+ pulses, warm, well-perfused. No cyanosis. Cap refill <2 seconds. No peripheral edema. LOWER EXTREMITIES: 2+ pulses, warm, well-perfused. No calf tenderness. No peripheral edema. NEUROLOGICAL: Normal speech, gait not observed. PSYCH: Cooperative. Good eye contact. Appropriate mood and affect. SKIN: Warm, dry, normal turgor, no rashes or lesions noted. Vital Signs Temperature 97.9 F 08/05/19 05:35 Pulse Rate 97 H 08/05/19 05:35 Respiratory Rate 16 08/05/19 05:35 Blood Pressure 130/64 08/05/19 05:35 O2 Sat by Pulse Oximetry (%) 96 08/04/19 21:00 Lab Results WBC 7.6 K/mm3 (4.0-10.0) 08/04/19 05:45 RBC 4.74 M/mm3 (4.00-5.60) 08/04/19 05:45 Hgb 13.9 GM/dL (11.7-16.9) 08/04/19 05:45 Hct 42.8 % (35.4-49) 08/04/19 05:45 MCV 90.3 fl (80-96) 08/04/19 05:45 MCHC 32.5 g/dl (32.0-35.9) 08/04/19 05:45 RDW 17.4 % (11.9-15.9) H 08/04/19 05:45 Plt Count 149 K/MM3 (134-434) 08/04/19 05:45 Sodium 140 mmol/L (136-145) 08/04/19 05:45 Potassium 4.6 mmol/L (3.5-5.1) 08/04/19 05:45 Chloride 101 mmol/L (98-107) 08/04/19 05:45 Carbon Dioxide 34 mmol/L (21-32) H 08/04/19 05:45 Anion Gap 5 MMOL/L (8-16) L 08/04/19 05:45 BUN 30.1 mg/dL (7-18) H 08/04/19 05:45 Creatinine 0.5 mg/dL (0.55-1.3) L 08/04/19 05:45 Random Glucose 89 mg/dL (74-106) 08/04/19 05:45 Calcium 9.0 mg/dL (8.5-10.1) 08/04/19 05:45 INR 1.03 (0.83-1.09) 08/01/19 16:16 History reviewed, CT scan reviewed. No abdominal aortic aneurysm present on CT. Arterial wall calcification, no active occlusive disease. No vascular intervention needed at this time.
[2019-08-02] MEDS ORDERED: AZITHROMYCIN IVPB 500 MG/250 ML BAG IVPB ONE (15:28)
--- NOTE | 2019-08-02 15:31 | CONSULT ---
Consult Consult Specialty:: Infectious Disease Referred by:: Dr Junior Reason for Consultation:: UTI - History of Present Illness Chief Complaint: Worsening Generalized weakness, failure to thrive History of Present Illness: Pt is a an 88 yo M with PMHx of COPD (not on home O2), HTN, DM, asthma, metastatic bladder CA, prostate cancer, s/p gastrectomy (52) current everyday smoker, and a history of respiratory arrest (2014 during outpt cystoscopy), brought in by family from doctor's office for increased lethargy. Pt is a heavy smoker, smoking up to 2PPD even over this period while frequently needing to use his nebulizer daily. Pt is unable to provide hx and family unable to say if he had new cough prior to admission, but has been noted to have increased cough and secretions while here. No fevers, no chills but pt complains about temperature extremes frequently. Pt has been unable to ambulate for over 3 months, initially barely able to get to bedside commode, now needs to be carried. Pt has poor PO intake, now with both bladder and bowel incontinence, making it difficult for family to take care of him. In May 2019 they were told by PMD that pt probably had lung metastasis and needed further work up that they did not follow through with due to his frailty. Per chart, they are open to having the pt go to SNF and have also signed DNI/DNR. Pt has been more combative of late and was given benzos. When I saw him he was not commmunicative. Tachycardic, tachypneic, EKG- QTC 497 UA- nitrite positive, WBC-5, trace LE WBC- 9.3>>12.0, ALP-[id number]>>873 Received Ceftriaxone in yesterday CT head- Mod atrophy, no focal ICH CTA chest: Severe COPD, atelectasis and airspace opacities LLB. 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, unclear if exposed to toxins Chronic heavy smoker since teenage years up to 2PPD Denies ETOH, drugs Fhx: Multiple cancers- 2 siblings in 70s, daughter- at 40 of lung cancer All: No known - Past Medical History Cardio/Vascular: Yes: HTN, Hyperlipdemia, Other (severe peripheral vascular disease by CT, suspect ASHD) Pulmonary: Yes: COPD, Pneumonia (12/03), Other (current smoker, home oxygen dependent) Gastrointestinal: Yes: Constipation, Peptic Ulcer Disease (with bleeding leading to partial gastrectomy) Renal/: Yes: Cancer (bladder cancer- transitional cell, prostate cancer per the chart- Ken denies this), Renal Calculi, Other (PAST PROSTATE CA) Endocrine: Yes: Diabetes Mellitus - Alcohol/Substance Use Hx Alcohol Use: No History of Substance Use: reports: None - Smoking History Smoking history: Former smoker Have you smoked in the past 12 months: No Aproximately how many cigarettes per day: 70 (2 PPD) - Social History Usual Living Arrangement: With Spouse ADL: Independent 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 Loss. denies: Fever Respiratory: reports: Cough, SOB Genitourinary: reports: Incontinence Psychiatric: reports: Altered Sleep Pattern Physical Exam Vital Signs: Vital Signs Temperature 99.1 F 08/02/19 13:00 Pulse Rate 102 H 08/02/19 13:00 Respiratory Rate 28 H 08/02/19 13:00 Blood Pressure 131/69 08/02/19 13:00 O2 Sat by Pulse Oximetry (%) 93 L 08/02/19 09:00 Constitutional: Yes: Cachectic, Thin Eyes: Yes: Other (miosed, reactive) HENT: Yes: Atraumatic, Other (dry mucous mebranes) Neck: Yes: Supple Cardiovascular: Yes: Tachycardia, S1, S2 Respiratory: Yes: Cough, Diminished Gastrointestinal: Yes: Soft, Hypoactive Bowel Sounds. No: Tenderness Edema: Yes Edema: LLE: 1+, RLE: 1+ Peripheral Pulses WNL: Yes Neurological: Yes: Lethargy Labs: CBC, BMP 08/02/19 05:30 08/02/19 05:30 Imaging - Results Chest X-ray: Report Reviewed, Image Reviewed Cat Scan: Report Reviewed, Image Reviewed Assessment/Plan Urine Test Results Urine Color [place] 08/01/19 17:50 Urine Appearance Clear 08/01/19 17:50 Urine pH 5.0 (5.0-8.0) 08/01/19 17:50 Ur Specific [place] 1.028 (1.010-1.035) 08/01/19 17:50 Urine Protein 2+ (NEGATIVE) H 08/01/19 17:50 Urine Glucose (UA) Negative (NEGATIVE) 08/01/19 17:50 Urine Ketones Trace (NEGATIVE) H 08/01/19 17:50 Urine Blood Negative (NEGATIVE) 08/01/19 17:50 Urine Nitrite Positive (NEGATIVE) H 08/01/19 17:50 Urine Bilirubin 2+ (NEGATIVE) H 08/01/19 17:50 Ur Leukocyte Esterase Trace (NEGATIVE) 08/01/19 17:50 Current Medications Aspirin (Ecotrin -) 81 mg PO DAILY [facility] Last Admin: 08/02/19 13:17 Dose: Not Given Sodium Chloride (Normal Saline -) 1,000 mls @ 42 mls/hr IV ASDIR [facility] Last Admin: 08/02/19 00:48 Dose: 42 mls/hr Azithromycin (Zithromax 500mg Ivpb (Pre-Docked)) 500 mg in 250 mls @ 250 mls/ hr IVPB ONCE ONE Stop: 08/02/19 16:27 Ceftriaxone Sodium 1 gm/ (Dextrose) 50 mls @ 200 mls/hr IVPB DAILY [facility]; Protocol Azithromycin 250 mg/ Dextrose 250 mls @ 250 mls/hr IVPB DAILY [facility] Insulin Aspart (Novolog Vial Sliding Scale -) 1 vial SQ BIDAC [facility]; Protocol Last Admin: 08/02/19 06:35 Dose: Not Given Assessment/Plan: Pt is a an 88 yo M with PMHx of COPD (not on home O2), HTN, DM, asthma, metastatic bladder CA, prostate cancer, s/p gastrectomy (52) current everyday smoker, and a history of respiratory arrest (2014 during outpt cystoscopy), brought in by family from doctor's office for increased lethargy. COPD (not on home O2), HTN, DM, asthma, metastatic bladder CA, prostate cancer, s/p gastrectomy (50yrs) current everyday smoker, history of respiratory arrest Lung nodules- stable Liver mets Lung infiltrates Positive UA Debilitating disease Wasting syndrome Possible mets unclear primary Plan: Sepsis likely secondary to CAP, with possible UTI Legionella AG Bcx Sputum cx Ucx pending Ceftriaxone 1g daily - day 2 Azithromycin 500mg stat, 250daily (EKG in am- prolonged QTC) D/W Dr Selvin Randolph MD PGY 3 Infectious Disease Rotation Visit type - Emergency Visit Emergency Visit: Yes ED Registration Date: 08/01/19 Care time: The patient presented to the Emergency Department on the above date and was hospitalized for further evaluation of their emergent condition. - New Patient This patient is new to me today: Yes Date on this admission: 08/02/19 - Critical Care Critical Care patient: No ATTENDING PHYSICIAN STATEMENT I saw and evaluated the patient. I reviewed the resident's note and discussed the case with the resident. I agree with the resident's findings and plan as documented. SUBJECTIVE: OBJECTIVE: ASSESSMENT AND PLAN:
[2019-08-02] MEDS ORDERED: DEXTROSE 5%-WATER - 50 ML IVPB ONE (15:53)
[2019-08-02] MEDS ORDERED: cefTRIAXone SODIUM 1 GM VIAL ONE (15:53)
[2019-08-02] MEDS: CEFTRIAXONE 1 GM in DEXTROSE 5%-WATER - 50 ML IVPB SCH (15:54)
[2019-08-02] MEDS ORDERED: LORazepam 2 MG/ML SDV VIAL IVPUSH ONE (18:26)
--- NOTE | 2019-08-02 18:50 | PN ---
Teaching Attending Note Name of Resident: Chandrika Randolph ATTENDING PHYSICIAN STATEMENT I saw and evaluated the patient. I reviewed the resident's note and discussed the case with the resident. I agree with the resident's findings and plan as documented. SUBJECTIVE: OBJECTIVE: ASSESSMENT AND PLAN: PROBABLE METASTATIC CA WASTING SYNDROME POSSIBLE SEPSIS SECONDARY TO LUNG V. SOURCE AWAIT SEPSIS W/U EMPIRIC ZITHROMAX/CEFTRIAXONE DISCUSSED WITH DAUGHTER AT BEDSIDE
--- NOTE | 2019-08-02 21:04 | CONSULT ---
Consult - text type - Consultation Consultation Note: The patient is an 88 year old male, with a significant PMH of COPD, HTN, DM, asthma, metastatic bladder CA, heavy tobacco use, and a history of respiratory arrest, who presents to the ED with his daughter with agitation, decreased PO intake, generalized weakness, weight loss, and progressive urinary and bowel incontinence. He is combative, agitated, confused. Unable to provide history Allergies: NKA, NKDA Past surgical history: abdominal Sx for peptic ulcer PCP - Dr. Junior Binder And Box Builder: Dr. Orellana - Physicial Exam PE: Cor: RSR, No murmurs, No gallops Lungs: Clear to P&A Abd: Soft, Normal bowel sounds, No organomegaly Ext:No significant edema Labs/Meds reviewed A/P 88 year old male, with a significant PMH of COPD, HTN, DM, asthma, metastatic bladder CA, heavy tobacco use, and a history of respiratory arrest, who presents to the ED with his daughter with agitation, decreased PO intake, generalized weakness, weight loss, and progressive urinary and bowel incontinence. He is combative, agitated, confused. Unable to provide history Failure to thrive CT chest --severe COPD, increased size of right pleural based mass, multiple liver lesions ? mets CT head -- moderate atrophy Given the overall picture --failure to thrive? dementia, , presumed metastatic bladder cancer, would consider hospice care. will consult palliative team to facilitate this
[2019-08-02] MEDS: LORazepam 0.5 MG TABLET PO PRN (22:36)
[2019-08-03] MEDS: INSULIN SLIDING SCALE (NOVOLOG) 1 VIAL SQ SCH ×2 (06:24→17:10)
[2019-08-03 06:47] LABS: HEMATOCRIT 43.3 % (35.4-49); HEMOGLOBIN 14.2 GM/dL (11.7-16.9); MCH 29.3 pg (25.7-33.7); MCHC 32.7 g/dl (32.0-35.9); MEAN CELL VOLUME 89.8 fl (80-96); MEAN PLT VOLUME 7.9 fl (7.5-11.1); PLATELET COUNT 165 K/MM3 (134-434); RBC 4.82 M/mm3 (4.00-5.60); RDW 17.4 % (11.9-15.9); WHITE BLOOD COUNT 10.2 K/mm3 (4.0-10.0)
[2019-08-03 07:09] LABS: ALBUMIN 3.1 g/dl (3.4-5.0); BILIRUBIN,TOTAL 1.1 mg/dL (0.2-1); BLOOD UREA NITROGEN 33.2 mg/dL (7-18); CALCIUM 9.1 mg/dL (8.5-10.1); CREATININE 0.6 mg/dL (0.55-1.3); POTASSIUM 4.4 mmol/L (3.5-5.1)
[2019-08-03] MEDS ORDERED: DEXTROSE 5%-WATER - 50 ML IVPB ONE (09:03)
[2019-08-03] MEDS ORDERED: cefTRIAXone SODIUM 1 GM VIAL ONE (09:03)
[2019-08-03] MEDS ORDERED: PT OWN MED DRAWER 7, Y5N ONE (09:04)
[2019-08-03] MEDS: CEFTRIAXONE 1 GM in DEXTROSE 5%-WATER - 50 ML IVPB SCH (09:07)
[2019-08-03] MEDS: ASPIRIN COATED 81 MG TABLET.EC PO SCH (09:13)
[2019-08-03] MEDS ORDERED: AZITHROMYCIN IVPB 250 MG in DEXTROSE 5%-WATER - 250 ML IVPB SCH (10:00)
[2019-08-03] MEDS: SODIUM CHLORIDE 1,000 ML IV SCH (10:37)
--- NOTE | 2019-08-03 11:18 | PN ---
Progress Note, Physician Chief Complaint: calm, s/p ativan last night; opens eyes; not in distress meds, chart tests and consults appreciated - Current Medication List Current Medications: Active Medications Aspirin (Ecotrin -) 81 mg PO DAILY [facility] Last Admin: 08/03/19 09:13 Dose: 81 mg Sodium Chloride (Normal Saline -) 1,000 mls @ 42 mls/hr IV ASDIR [facility] Last Admin: 08/03/19 10:37 Dose: 42 mls/hr Ceftriaxone Sodium 1 gm/ (Dextrose) 50 mls @ 200 mls/hr IVPB DAILY [facility]; Protocol Last Admin: 08/03/19 09:07 Dose: 200 mls/hr Azithromycin 250 mg/ Dextrose 250 mls @ 250 mls/hr IVPB DAILY [facility] Last Admin: 08/03/19 10:37 Dose: 250 mls/hr Insulin Aspart (Novolog Vial Sliding Scale -) 1 vial SQ BIDAC [facility]; Protocol Last Admin: 08/03/19 06:24 Dose: Not Given Lorazepam (Ativan -) 0.5 mg PO BID PRN PRN Reason: ANXIETY Last Admin: 08/02/19 22:36 Dose: 0.5 mg - Objective Vital Signs: Vital Signs Temperature 98.7 F 08/03/19 06:00 Pulse Rate 93 H 08/03/19 06:00 Respiratory Rate 20 08/03/19 06:00 Blood Pressure 128/66 08/03/19 06:00 O2 Sat by Pulse Oximetry (%) 97 08/02/19 21:00 Constitutional: Yes: No Distress, Calm Eyes: Yes: Conjunctiva Clear HENT: Yes: Atraumatic Neck: Yes: Supple Cardiovascular: Yes: Regular Rate and Rhythm Respiratory: Yes: Diminished Gastrointestinal: Yes: Soft. No: Tenderness Genitourinary: No: Hematuria Musculoskeletal: No: Joint Stiffness, Joint Swelling Extremities: No: Cold, Cool, Cyanosis Edema: No Integumentary: No: Rash, Venous Stasis Changes Neurological: Yes: Alert, Confusion. No: Oriented ...Motor Strength: WNL Psychiatric: Yes: Alert. No: Oriented, Agitated Labs: CBC, BMP 08/03/19 06:15 08/03/19 06:15 INR, PTT INR 1.03 (0.83-1.09) 08/01/19 16:16 - ....Imaging Cat Scan: Report Reviewed Other: Report Reviewed Assessment/Plan 88yo M with PMH of COPD (not on home O2), HTN, DM, asthma, metastatic bladder CA , lung and liver masses, h/o long heavy tobacco use, advanced dementia, advanced COPD, history of respiratory arrest, who presents to the emergency department for failure to thrive brought by daughter; found to have tachycardia , low grade fever sepsis? on IV ATB per ID seen also by cardiology, heme onc pt's daughter signed DNR (but not DNI) pt needs intermittent wrist restraints - pulled out IV, medical equipment falls decubs aspiration pfx d./w staff close f/u; PT and CM eval on monday
[2019-08-03 12:30] VITALS: BMI 18.3
--- NOTE | 2019-08-03 12:51 | PN ---
Progress Note (short form) - Note Progress Note: 88 year with lethargy , male admitted, weakness, incontinent of bodily function and workup suggesting metastatic disease. Known case of CAD/andina, O2 dependent COPD, tobacco abuse Patient remains lethargic but arousable. ALLERGIES: None documented. Active Medications Aspirin (Ecotrin -) 81 mg PO DAILY [facility] Last Admin: 08/03/19 09:13 Dose: 81 mg Sodium Chloride (Normal Saline -) 1,000 mls @ 42 mls/hr IV ASDIR [facility] Last Admin: 08/03/19 10:37 Dose: 42 mls/hr Ceftriaxone Sodium 1 gm/ (Dextrose) 50 mls @ 200 mls/hr IVPB DAILY [facility]; Protocol Last Admin: 08/03/19 09:07 Dose: 200 mls/hr Azithromycin 250 mg/ Dextrose 250 mls @ 250 mls/hr IVPB DAILY [facility] Last Admin: 08/03/19 10:37 Dose: 250 mls/hr Insulin Aspart (Novolog Vial Sliding Scale -) 1 vial SQ BIDAC [facility]; Protocol Last Admin: 08/03/19 06:24 Dose: Not Given Lorazepam (Ativan -) 0.5 mg PO BID PRN PRN Reason: ANXIETY Last Admin: 08/02/19 22:36 Dose: 0.5 mg PHYSICAL EXAMINATION: General: 88-year-old gentleman was in no acute distress. No pallor was appreciated. No clubbing or jaundice. Vital Signs Temperature 98.7 F 08/03/19 06:00 Pulse Rate 93 H 08/03/19 06:00 Respiratory Rate 20 08/03/19 06:00 Blood Pressure 128/66 08/03/19 06:00 O2 Sat by Pulse Oximetry (%) 97 08/02/19 21:00 Neck: Supple. No jugular venous distention. Hepatojugular reflux was negative. Carotids were 2+. Upstrokes were normal. No bruits were heard, and no thyromegaly was present. Heart: PMI was in the fifth intercostal space. Heart sounds were distant. Unable to appreciate murmurs, gallops or rubs. Lungs: Decreased breath sounds bilaterally, fine crepitations at the left base. Abdomen: Soft and nontender. Liver is 4 to 5 fingerbreadth below the right intercostal margin, is probable nodular and is nontender. No splenomegaly is appreciated. Well-healed midline abdominal scar. No masses were felt. Extremities: No calf tenderness or dependent edema. Femoral pulses were 2+. Dorsalis pedis and posterior tibial pulses were not palpable. Chest x-ray Dated: 08/01/19 Impression: Interval atelectatic changes and probable infiltrates in the left lung base. CTA Chest: Dated: 08/01/19 Impression: See discussion above. There is no gross evidence of a pulmonary embolus in the main pulmonary artery and its proximal branches, bilaterally. Severe COPD changes again seen. Interval increase in size of previously visualized pleural-based nodule/mass in the medial aspect of the right lower lobe now measuring 2.5 x 1.3 cm. Interval multiple low-attenuation densities in included portion of the liver with the largest measuring 7.5 cm that are highly suspicious for metastasis. Heterogeneous attenuation and enhancement of the spleen that may be due to rapid intravenous contrast administration. However, metastatic lesions cannot be excluded. LAB DATA: Laboratory Tests 08/03/19 06:15 WBC 10.2 H RBC 4.82 Hgb 14.2 Hct 43.3 MCV 89.8 MCH 29.3 MCHC 32.7 RDW 17.4 H Plt Count 165 MPV 7.9 08/03/19 06:15 Sodium 141 Potassium 4.4 Chloride 99 Carbon Dioxide 36 H Anion Gap 6 L BUN 33.2 H Creatinine 0.6 Random Glucose 89 Calcium 9.1 Total Bilirubin 1.1 H AST 135 H ALT 86 H Alkaline Phosphatase 870 H Creatine Kinase 577 H Creatine Kinase Index 1.0 CK-MB (CK-2) 5.9 H Troponin I 0.52 H Total Protein 7.0 Albumin 3.1 L IMPRESSION: 1. Athrosclerotic heart disease/angina pectoris, suspect acute coronary syndrome. 2. Abnormal liver function tests, hepatomegaly, and abdominal CT is highly suspicious for metastatic disease. 3. Oxygen dependent COPD/chronic bronchitis. 4. Lethargy and mental confusion etiology to be determined. 5. Dehydration, corrected. 6. 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 7. Elevated BNP most likely related to either advanced COPD, congestive heart failure and possibly related to advanced carcinoma. 8. ? history of dementia. 9. Tobacco abuse. RECOMMENDATION: 1. Consider topical nitrates till patient is fully awake and able to take fluid/liquids orally. 2. Followup ECG and enzymes. 3. and daughter were aware of his cardiac status and overall medical status. 4. Further evaluation and workup is in progress. IAN ARORA M.D.
--- NOTE | 2019-08-03 16:03 | PN ---
Progress Note (short form) - Note Progress Note: NAD per rn has been sleeping most of the day some cough at bedside Vital Signs Period Temp Pulse Resp BP Sys/Magaña Pulse Ox Last 24 Hr 97.5 F-99.8 F 88-115 20-26 100-131/46-66 91-97 cor-rrr lungs bilateral rhonchi abd soft,nt ext no edema CBC, BMP 08/03/19 06:15 08/03/19 06:15 Microbiology 08/02/19 18:00 Sputum - Expectorated Gram Stain - Final 08/02/19 16:30 Urine For Antigen Detection Legionella Antigen - Final- negative 08/02/19 16:30 Urine For Antigen Detection Streptococcus pneumoniae Antigen (M - Final-negative 08/01/19 17:50 Urine - Urine - Catheterized Urine Culture - Final NO GROWTH OBTAINED a/p advanced malignancy possible sepsis f/u cultures continue rocephin d/c zithromax
[2019-08-03] MEDS: LORazepam 0.5 MG TABLET PO PRN (17:00)
--- NOTE | 2019-08-03 20:15 | EKG ---
Test Reason : Blood Pressure : / mmHG Vent. Rate : 104 BPM Atrial Rate : 104 BPM P-R Int : 080 ms QRS Dur : 122 ms QT Int : 384 ms P-R-T Axes : 071 071 054 degrees QTc Int : 504 ms SINUS TACHYCARDIA WITH SHORT [place] RIGHT BUNDLE BRANCH BLOCK CANNOT RULE OUT INFERIOR INFARCT (CITED ON OR BEFORE 01-AUG-2019) ABNORMAL ECG WHEN COMPARED WITH ECG OF 01-AUG-2019 16:16, [place] INTERVAL HAS DECREASED Confirmed by MD JESIKA, JOSE MIGUEL ([id number]) on 08/03/2019 8:15:25 PM Referred By: Casper FAUSTIN Confirmed By:JOSE MIGUEL CANCHOLA MD
[2019-08-04 06:18] LABS: BASO % 0.3 % (0-2.0); EOS % 0.1 % (0-4.5); HEMATOCRIT 42.8 % (35.4-49); HEMOGLOBIN 13.9 GM/dL (11.7-16.9); LYMPH % 10.3 % (8-40); MCH 29.3 pg (25.7-33.7); MCHC 32.5 g/dl (32.0-35.9); MEAN CELL VOLUME 90.3 fl (80-96); MEAN PLT VOLUME 7.7 fl (7.5-11.1); MONO % 9.3 % (3.8-10.2); PLATELET COUNT 149 K/MM3 (134-434); RBC 4.74 M/mm3 (4.00-5.60); RDW 17.4 % (11.9-15.9); WHITE BLOOD COUNT 7.6 K/mm3 (4.0-10.0)
[2019-08-04] MEDS: SODIUM CHLORIDE 1,000 ML IV SCH (06:28)
[2019-08-04] MEDS: INSULIN SLIDING SCALE (NOVOLOG) 1 VIAL SQ SCH ×2 (06:36→17:25)
[2019-08-04 06:57] LABS: ALBUMIN 3.1 g/dl (3.4-5.0); BILIRUBIN,TOTAL 0.8 mg/dL (0.2-1); BLOOD UREA NITROGEN 30.1 mg/dL (7-18); CREATININE 0.5 mg/dL (0.55-1.3); POTASSIUM 4.6 mmol/L (3.5-5.1); TOT PROT 7.2 g/dl (6.4-8.2)
[2019-08-04] MEDS: LORazepam 0.5 MG TABLET PO PRN ×2 (08:31→17:26)
[2019-08-04] MEDS ORDERED: cefTRIAXone SODIUM 1 GM VIAL ONE (09:07)
[2019-08-04] MEDS ORDERED: DEXTROSE 5%-WATER - 50 ML IVPB ONE (09:07)
[2019-08-04] MEDS: ASPIRIN COATED 81 MG TABLET.EC PO SCH (09:14)
[2019-08-04] MEDS: CEFTRIAXONE 1 GM in DEXTROSE 5%-WATER - 50 ML IVPB SCH (09:14)
--- NOTE | 2019-08-04 11:36 | PN ---
Progress Note, Physician Chief Complaint: received ativan early this am he was agitated wanted to get OOB and pulled in IVs now sleeping, calm; VSS - Current Medication List Current Medications: Active Medications Aspirin (Ecotrin -) 81 mg PO DAILY [facility] Last Admin: 08/04/19 09:14 Dose: 81 mg Sodium Chloride (Normal Saline -) 1,000 mls @ 42 mls/hr IV ASDIR [facility] Last Admin: 08/04/19 06:28 Dose: 42 mls/hr Ceftriaxone Sodium 1 gm/ (Dextrose) 50 mls @ 200 mls/hr IVPB DAILY [facility]; Protocol Last Admin: 08/04/19 09:14 Dose: 200 mls/hr Insulin Aspart (Novolog Vial Sliding Scale -) 1 vial SQ BIDAC [facility]; Protocol Last Admin: 08/04/19 06:36 Dose: Not Given Lorazepam (Ativan -) 0.5 mg PO BID PRN PRN Reason: ANXIETY Last Admin: 08/04/19 08:31 Dose: 0.5 mg - Objective Vital Signs: Vital Signs Temperature 98.4 F 08/04/19 08:21 Pulse Rate 105 H 08/04/19 08:21 Respiratory Rate 19 08/04/19 08:21 Blood Pressure 127/59 L 08/04/19 08:21 O2 Sat by Pulse Oximetry (%) 93 L 08/03/19 21:00 Constitutional: Yes: No Distress, Calm Eyes: Yes: Conjunctiva Clear HENT: Yes: Atraumatic Neck: Yes: Supple Cardiovascular: Yes: Regular Rate and Rhythm Respiratory: Yes: Diminished Gastrointestinal: Yes: Soft. No: Tenderness Genitourinary: No: Hematuria Musculoskeletal: No: Joint Stiffness, Joint Swelling Extremities: No: Cold, Cool Edema: No Integumentary: No: Rash, Venous Stasis Changes Psychiatric: No: Agitated Labs: CBC, BMP 08/04/19 05:45 08/04/19 05:45 INR, PTT INR 1.03 (0.83-1.09) 08/01/19 16:16 - ....Imaging Other: Report Reviewed Assessment/Plan 88yo M with PMH of COPD (not on home O2), HTN, DM, asthma, metastatic bladder CA , lung and liver masses, h/o long heavy tobacco use, advanced dementia, advanced COPD, history of respiratory arrest, admitted for failure to thrive brought by daughter; found to have tachycardia, low grade fever sepsis? on IV ATB per ID seen also by cardiology, heme onc pt's daughter signed DNR (but not DNI) pt needs intermittent wrist restraints - pulled out IV, medical equipment falls decubs aspiration pfx d./w staff close f/u; PT and CM eval on monday
--- NOTE | 2019-08-04 17:24 | CONS ---
DATE OF CONSULTATION: DATE OF DICTATION: 08/04/2019 The patient is an 88-year-old [place] gentleman who was admitted with progressive lethargy, weakness, progressive weight loss, incontinence of bodily functions, was found to have lesions in the liver suggestive of metastatic disease. He has long-standing history of oxygen-dependent COPD, coronary artery disease, angina pectoris, tobacco abuse, hypertension, hypertensive cardiovascular disease, and hypercholesterolemia. According to his daughter, there is history of dementia. Patient remains lethargic but is arousable. He is confused. No other pertinent symptoms have been reported. MEDICATIONS: 1. Ceftriaxone IV piggyback. 2. Ativan 0.5 mg p.o. t.i.d. p.r.n. 3. He is receiving normal saline 42 mL per hour. 4. NovoLog insulin via sliding scale. 5. Aspirin 81 mg p.o. daily. EXAMINATION: General: An 88-year-old cachectic male, was poorly responsive. Vital Signs: Blood pressure 140/55 mmHg. Pulse 105 beats per minute and irregular. Temperature 97.8 degrees Fahrenheit. Respirations 20 per minute. Oxygen saturation 96% on 2 L of oxygen. Neck: Supple. No jugular venous distention. Hepatojugular reflux was negative. Carotids were 2+. No bruits were appreciated. No thyromegaly. Heart: PMI was in the 5th intercostal space. No heaves or thrills. Heart sounds were distant. No murmur or gallops were appreciated. Lungs: Bilaterally decreased breath sounds, more pronounced at the bases. No extraneous sounds were appreciated. Abdomen: Soft, was 4 to 5 fingerbreadths below the right costal margin. No splenomegaly was appreciated. No palpable masses were felt. Extremities: No calf tenderness or dependent edema. LABORATORY DATA: CBC, August 04, 2019: WBC 7600, hemoglobin 13.9 g/dL, hematocrit 42.8%, platelet count was 149,000, differential was normal. Chemistry: Sodium 140, potassium 4.6, chloride 101, CO2 34 mmol/L, BUN 30.1, creatinine 0.5 mg dL. Liver function tests: Total bilirubin 0.8, AST 116, ALT 78, alkaline phosphatase 821 units/L. IMPRESSION: 1. Coronary artery disease, angina pectoris, with recent elevation of troponin level, suggestive of coronary syndrome. 2. Lethargy, poor mentation, etiology to be determined. 3. Hepatomegaly, most likely related to metastatic disease. 4. Oxygen-dependent chronic obstructive pulmonary disease. 5. Acute pulmonary infection is being considered. RECOMMENDATIONS: 1. Continue current medications. 2. Follow up CBC and BMP. 3. Follow up ECG and troponin levels. PROGNOSIS: Critical. Pardeep WATKINS/[id number]
[2019-08-05] MEDS: SODIUM CHLORIDE 1,000 ML IV SCH ×2 (06:07→12:56)
[2019-08-05] MEDS: INSULIN SLIDING SCALE (NOVOLOG) 1 VIAL SQ SCH ×2 (06:08→17:40)
--- NOTE | 2019-08-05 08:29 | PN ---
Progress Note, Physician Chief Complaint: awake alert son at bedside - Current Medication List Current Medications: Active Medications Aspirin (Ecotrin -) 81 mg PO DAILY [facility] Last Admin: 08/04/19 09:14 Dose: 81 mg Sodium Chloride (Normal Saline -) 1,000 mls @ 42 mls/hr IV ASDIR [facility] Last Admin: 08/05/19 06:07 Dose: Not Given Ceftriaxone Sodium 1 gm/ (Dextrose) 50 mls @ 200 mls/hr IVPB DAILY [facility]; Protocol Last Admin: 08/04/19 09:14 Dose: 200 mls/hr Insulin Aspart (Novolog Vial Sliding Scale -) 1 vial SQ BIDAC [facility]; Protocol Last Admin: 08/05/19 06:08 Dose: Not Given Lorazepam (Ativan -) 0.5 mg PO BID PRN PRN Reason: ANXIETY Last Admin: 08/04/19 17:26 Dose: 0.5 mg - Objective Vital Signs: Vital Signs Temperature 97.9 F 08/05/19 05:35 Pulse Rate 97 H 08/05/19 05:35 Respiratory Rate 16 08/05/19 05:35 Blood Pressure 130/64 08/05/19 05:35 O2 Sat by Pulse Oximetry (%) 96 08/04/19 21:00 Constitutional: Yes: No Distress, Calm Eyes: Yes: Conjunctiva Clear HENT: Yes: Atraumatic Neck: Yes: Supple Cardiovascular: Yes: Regular Rate and Rhythm Respiratory: Yes: Diminished Gastrointestinal: Yes: Soft Genitourinary: No: Hematuria Musculoskeletal: No: Joint Stiffness, Joint Swelling Extremities: No: Cold, Cool Edema: No Integumentary: No: Rash, Venous Stasis Changes Neurological: Yes: WNL, Alert, Oriented ...Motor Strength: WNL Psychiatric: Yes: WNL, Alert, Oriented. No: Agitated, Suicidal Ideation Labs: CBC, BMP 08/04/19 05:45 08/04/19 05:45 INR, PTT INR 1.03 (0.83-1.09) 08/01/19 16:16 - ....Imaging Other: Report Reviewed Assessment/Plan 88yo M with PMH of COPD (not on home O2), HTN, DM, asthma, metastatic bladder CA , lung and liver masses, h/o long heavy tobacco use, advanced dementia, advanced COPD, history of respiratory arrest, admitted for failure to thrive; found to have tachycardia, low grade fever sepsis? on IV ATB per ID seen also by cardiology, heme onc pt's daughter signed DNR (but not DNI) falls decubs aspiration pfx d./w staff and son plan for SNF
[2019-08-05] MEDS ORDERED: cefTRIAXone SODIUM 1 GM VIAL ONE (10:10)
[2019-08-05] MEDS ORDERED: DEXTROSE 5%-WATER - 50 ML IVPB ONE (10:11)
--- NOTE | 2019-08-05 10:21 | PN ---
Progress Note (short form) - Note Progress Note: 88-year-old gentleman was brought to the emergency room by his daughter because of progressive lethargy, weakness, progressive weight loss and incontinence of both stool and urine. Patient has longstanding history of coronary artery disease, angina pectoris, chronic bronchitis/COPD, O2 dependent, hypertension, hypertensive cardiovascular disease, tobacco abuse. According to his daughter he has developed progressive lethargy and generalized weakness, apparently his appetite has been poor he also has been losing control over his bodily functions and has lost a significant amount of weight. No history of chest pain or discomfort is available, has chronic dyspnea and has a chronic cough. No history of expectoration and hemoptysis is available. Patient is poorly responsive and unable to provide a history. ALLERGIES: None documented. Active Medications Generic Name Dose Route Start Last Admin Trade Name Freq PRN Reason Stop Dose Admin Aspirin 81 mg 08/02/19 10:00 08/04/19 09:14 Ecotrin - PO 81 mg DAILY [facility] Administration Sodium Chloride 1,000 mls @ 42 mls/hr 08/02/19 00:45 08/05/19 06:07 Normal Saline - IV Not Given ASDIR [facility] Ceftriaxone Sodium 1 gm/ 50 mls @ 200 mls/hr 08/02/19 15:30 08/04/19 09:14 Dextrose IVPB 200 mls/hr DAILY [facility] Administration Protocol Insulin Aspart 1 vial 08/02/19 07:00 08/05/19 06:08 Novolog Vial Sliding Scale - SQ Not Given BIDAC [facility] Protocol Lorazepam 0.5 mg 08/02/19 22:27 08/04/19 17:26 Ativan - PO 0.5 mg BID PRN Administration ANXIETY PHYSICAL EXAMINATION: General: 88-year-old gentleman was in no acute distress. No pallor was appreciated. No clubbing or jaundice. Vital Signs Temperature 97.9 F 08/05/19 05:35 Pulse Rate 97 H 08/05/19 05:35 Respiratory Rate 16 08/05/19 05:35 Blood Pressure 130/64 08/05/19 05:35 O2 Sat by Pulse Oximetry (%) 96 08/04/19 21:00 Neck: Supple. No jugular venous distention. Hepatojugular reflux was negative. Carotids were 2+. Upstrokes were normal. No bruits were heard, and no thyromegaly was present. Heart: PMI was in the fifth intercostal space. Heart sounds were distant. Unable to appreciate murmurs, gallops or rubs. Lungs: Decreased breath sounds bilaterally, fine crepitations at the left base. Abdomen: Soft and nontender. Liver is 4 to 5 fingerbreadth below the right intercostal margin, is probable nodular and is nontender. No splenomegaly is appreciated. Well-healed midline abdominal scar. No masses were felt. Extremities: No calf tenderness or dependent edema. Femoral pulses were 2+. Dorsalis pedis and posterior tibial pulses were not palpable. ECG: Dated: 08/01/19 NORMAL SINUS RHYTHM RIGHT ATRIAL ENLARGEMENT RIGHT BUNDLE BRANCH BLOCK CANNOT RULE OUT INFERIOR INFARCT , AGE UNDETERMINED ABNORMAL ECG WHEN COMPARED WITH ECG OF 13-DEC-2017 19:07, RIGHT BUNDLE BRANCH BLOCK HAS REPLACED NON-SPECIFIC INTRA-VENTRICULAR CONDUCTION BLOCK MINIMAL CRITERIA FOR INFERIOR INFARCT ARE NOW PRESENT Chest x-ray Dated: 08/01/19 Impression: Interval atelectatic changes and probable infiltrates in the left lung base. CTA Chest: Dated: 08/01/19 Impression: See discussion above. There is no gross evidence of a pulmonary embolus in the main pulmonary artery and its proximal branches, bilaterally. Severe COPD changes again seen. Interval increase in size of previously visualized pleural-based nodule/mass in the medial aspect of the right lower lobe now measuring 2.5 x 1.3 cm. Interval multiple low-attenuation densities in included portion of the liver with the largest measuring 7.5 cm that are highly suspicious for metastasis. Heterogeneous attenuation and enhancement of the spleen that may be due to rapid intravenous contrast administration. However, metastatic lesions cannot be excluded. LAB DATA: CBC, BMP 08/04/19 05:45 08/04/19 05:45 IMPRESSION: 1. Athrosclerotic heart disease/angina pectoris, suspect acute coronary syndrome. 2. Abnormal liver function test, hepatomegaly, and abdominal CT is highly suspicious for metastatic disease. 3. Oxygen dependent COPD/chronic bronchitis. 4. Tobacco abuse. 5. Dehydration, corrected. 6. 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 7. Elevated BNP most likely related to either advanced COPD, congestive heart failure and possibly related to advanced carcinoma. 8. ? history of dementia. RECOMMENDATION: 1. As patient is unable to take oral medications because of lethargy etc. consider placing him on topical nitrates. 2. Followup ECG and enzymes. 3. and daughter were aware of his cardiac status and overall medical status. 4. Further evaluation and workup is in progress. PROGNOSIS: Critical. IAN ARORA M.D. [id number] time spent with patient, evaluating hospital records and with family 45 minutes.
--- NOTE | 2019-08-05 10:44 | PN ---
Progress Note, Physician History of Present Illness: AWAKE WITH EYES OPEN BUT NOT VERBALLY RESPONSIVE AFEBRILE WBC IMPROVED WNL BREATHING NON LABORED NO COUGH NOTED BC (-) URINE C/S (-) LEGIONELLA AG (-) SPUTUM NORMAL GARCIA - Current Medication List Current Medications: Active Medications Aspirin (Ecotrin -) 81 mg PO DAILY [facility] Last Admin: 08/04/19 09:14 Dose: 81 mg Sodium Chloride (Normal Saline -) 1,000 mls @ 42 mls/hr IV ASDIR [facility] Last Admin: 08/05/19 06:07 Dose: Not Given Ceftriaxone Sodium 1 gm/ (Dextrose) 50 mls @ 200 mls/hr IVPB DAILY [facility]; Protocol Last Admin: 08/04/19 09:14 Dose: 200 mls/hr Insulin Aspart (Novolog Vial Sliding Scale -) 1 vial SQ BIDAC [facility]; Protocol Last Admin: 08/05/19 06:08 Dose: Not Given Lorazepam (Ativan -) 0.5 mg PO BID PRN PRN Reason: ANXIETY Last Admin: 08/04/19 17:26 Dose: 0.5 mg - Objective Vital Signs: Vital Signs Temperature 97.9 F 08/05/19 05:35 Pulse Rate 97 H 08/05/19 05:35 Respiratory Rate 16 08/05/19 05:35 Blood Pressure 130/64 08/05/19 05:35 O2 Sat by Pulse Oximetry (%) 96 08/04/19 21:00 Constitutional: Yes: No Distress, Cachectic Eyes: Yes: Conjunctiva Clear Cardiovascular: Yes: Regular Rate and Rhythm, S1, S2 Respiratory: Yes: Diminished Gastrointestinal: Yes: Normal Bowel Sounds, Soft. No: Tenderness Edema: No Labs: CBC, BMP 08/04/19 05:45 08/04/19 05:45 INR, PTT INR 1.03 (0.83-1.09) 08/01/19 16:16 Assessment/Plan PROBABLE METASTATIC CA CACHEXIA ? PNEUMONIA ? UTI DAY#5 CEFTRIAXONE SUBSTITUTE CEFTIN PO X 48HR ASP PRECAUTIONS SUPPORTIVE MEASURES
[2019-08-05] MEDS: ASPIRIN COATED 81 MG TABLET.EC PO SCH (10:46)
[2019-08-05] MEDS: CEFTRIAXONE 1 GM in DEXTROSE 5%-WATER - 50 ML IVPB SCH (10:46)
[2019-08-05] MEDS: CEFUROXIME AXETIL 250 MG TABLET PO SCH ×3 (13:29→22:33)
[2019-08-05] MEDS: LORazepam 0.5 MG TABLET PO PRN (17:58)
[2019-08-05] MEDS: ALBUTEROL SO4 2.5/IPRATROPIUM 0.5 INH SOL 3 ML VIAL.NEB. NEB PRN (20:14)
[2019-08-05] MEDS ORDERED: PT OWN MED DRAWER 7, Y5N ONE (22:12)
[2019-08-06] MEDS: LORazepam 0.5 MG TABLET PO PRN ×2 (05:29→21:41)
[2019-08-06] MEDS: SODIUM CHLORIDE 1,000 ML IV SCH (05:29)
[2019-08-06] MEDS: INSULIN SLIDING SCALE (NOVOLOG) 1 VIAL SQ SCH ×2 (06:06→17:06)
--- NOTE | 2019-08-06 11:13 | PN ---
Progress Note (short form) - Note Progress Note: 88 year with lethargy , male admitted, weakness, incontinent of bodily function and workup suggesting metastatic disease. Known case of CAD/andina, O2 dependent COPD, tobacco abuse Patient remains lethargic but arousable. No significant change in clinical status. ALLERGIES: None documented. Active Medications Generic Name Dose Route Start Last Admin Trade Name Freq PRN Reason Stop Dose Admin Albuterol/Ipratropium 1 amp 08/05/19 11:21 08/05/19 20:14 Duoneb - NEB 1 amp Q6H PRN Administration SHORTNESS OF BREATH Aspirin 81 mg 08/02/19 10:00 08/05/19 10:46 Ecotrin - PO 81 mg DAILY [facility] Administration Cefuroxime Axetil 250 mg 08/05/19 11:00 08/05/19 22:33 Ceftin - PO Not Given BID [facility] Sodium Chloride 1,000 mls @ 42 mls/hr 08/02/19 00:45 08/06/19 05:29 Normal Saline - IV 42 mls/hr ASDIR [facility] Administration Insulin Aspart 1 vial 08/02/19 07:00 08/06/19 06:06 Novolog Vial Sliding Scale - SQ Not Given BIDAC [facility] Protocol Lorazepam 0.5 mg 08/02/19 22:27 08/06/19 05:29 Ativan - PO 0.5 mg BID PRN Administration ANXIETY PHYSICAL EXAMINATION: General: 88-year-old gentleman was in no acute distress. No pallor was appreciated. No clubbing or jaundice. Last Vital Signs Temp Pulse Resp BP Pulse Ox 98.0 F 107 H 20 136/69 92 L 08/06/19 07:17 08/06/19 07:17 08/06/19 07:17 08/06/19 07:17 08/05/19 21:00 Neck: Supple. No jugular venous distention. Hepatojugular reflux was negative. Carotids were 2+. Upstrokes were normal. No bruits were heard, and no thyromegaly was present. Heart: PMI was in the fifth intercostal space. Heart sounds were distant. Unable to appreciate murmurs, gallops or rubs. Lungs: Decreased breath sounds bilaterally, fine crepitations at the left base. Abdomen: Soft and nontender. Liver is 4 to 5 fingerbreadth below the right intercostal margin, is probable nodular and is nontender. No splenomegaly is appreciated. Well-healed midline abdominal scar. No masses were felt. Extremities: No calf tenderness or dependent edema. Femoral pulses were 2+. Dorsalis pedis and posterior tibial pulses were not palpable. Chest x-ray Dated: 08/01/19 Impression: Interval atelectatic changes and probable infiltrates in the left lung base. CTA Chest: Dated: 08/01/19 Impression: See discussion above. There is no gross evidence of a pulmonary embolus in the main pulmonary artery and its proximal branches, bilaterally. Severe COPD changes again seen. Interval increase in size of previously visualized pleural-based nodule/mass in the medial aspect of the right lower lobe now measuring 2.5 x 1.3 cm. Interval multiple low-attenuation densities in included portion of the liver with the largest measuring 7.5 cm that are highly suspicious for metastasis. Heterogeneous attenuation and enhancement of the spleen that may be due to rapid intravenous contrast administration. However, metastatic lesions cannot be excluded. LAB DATA: CBC, BMP 08/04/19 05:45 08/04/19 05:45 IMPRESSION: 1. Athrosclerotic heart disease/angina pectoris, suspect acute coronary syndrome. 2. Abnormal liver function tests, hepatomegaly, and abdominal CT is highly suspicious for metastatic disease. 3. Oxygen dependent COPD/chronic bronchitis. 4. Lethargy and mental confusion etiology to be determined. 5. Dehydration, corrected. 6. 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 7. History of dementia. 9. Tobacco abuse. RECOMMENDATION: 1. Consider resuming his cardiac medications.. 2. Supportive care. 3. May need to consider biopsy of a hepatic nodule. IAN ARORA M.D.
[2019-08-06] MEDS: CEFUROXIME AXETIL 250 MG TABLET PO SCH ×2 (11:23→21:41)
[2019-08-06] MEDS: ASPIRIN COATED 81 MG TABLET.EC PO SCH (11:23)
--- NOTE | 2019-08-06 12:38 | PN ---
Progress Note, Physician History of Present Illness: Unable to obtain as pt is not answering to questions, he is awake, said "come here" and held my hand. Pt's nursing service director at bedside, pt is refusing to eat or drink. - Current Medication List Current Medications: Active Medications Albuterol/Ipratropium (Duoneb -) 1 amp NEB Q6H PRN PRN Reason: SHORTNESS OF BREATH Last Admin: 08/05/19 20:14 Dose: 1 amp Aspirin (Ecotrin -) 81 mg PO DAILY [facility] Last Admin: 08/06/19 11:23 Dose: 81 mg Cefuroxime Axetil (Ceftin -) 250 mg PO BID [facility] Last Admin: 08/06/19 11:23 Dose: 250 mg Sodium Chloride (Normal Saline -) 1,000 mls @ 42 mls/hr IV ASDIR [facility] Last Admin: 08/06/19 05:29 Dose: 42 mls/hr Insulin Aspart (Novolog Vial Sliding Scale -) 1 vial SQ BIDAC [facility]; Protocol Last Admin: 08/06/19 06:06 Dose: Not Given Lorazepam (Ativan -) 0.5 mg PO BID PRN PRN Reason: ANXIETY Last Admin: 08/06/19 05:29 Dose: 0.5 mg - Objective Vital Signs: Vital Signs Temperature 98.0 F 08/06/19 07:17 Pulse Rate 107 H 08/06/19 07:17 Respiratory Rate 20 08/06/19 07:17 Blood Pressure 136/69 08/06/19 07:17 O2 Sat by Pulse Oximetry (%) 92 L 08/05/19 21:00 Constitutional: Yes: No Distress, Calm Cardiovascular: Yes: Regular Rate and Rhythm, S1, S2 Respiratory: Yes: Regular, Rhonchi, Wheezes Gastrointestinal: Yes: Normal Bowel Sounds, Soft. No: Tenderness Edema: No Neurological: Yes: Alert Labs: CBC, BMP 08/04/19 05:45 08/04/19 05:45 INR, PTT INR 1.03 (0.83-1.09) 08/01/19 16:16 Problem List - Problems (1) Cardiac enzymes elevated Code(s): R74.8 - ABNORMAL LEVELS OF OTHER SERUM ENZYMES (2) Failure to thrive in adult Code(s): R62.7 - ADULT FAILURE TO THRIVE (3) Liver metastasis Code(s): C78.7 - SECONDARY MALIG NEOPLASM OF LIVER AND INTRAHEPATIC BILE DUCT (4) CAD (coronary artery disease) Code(s): I25.10 - ATHSCL HEART DISEASE OF [place] CORONARY ARTERY W/O ANG PCTRS (5) UTI (urinary tract infection) Code(s): N39.0 - URINARY TRACT INFECTION, SITE NOT SPECIFIED Qualifiers: Urinary tract infection type: site unspecified Hematuria presence: without hematuria Qualified Code(s): N39.0 - Urinary tract infection, site not specified (6) COPD (chronic obstructive pulmonary disease) Code(s): J44.9 - CHRONIC OBSTRUCTIVE PULMONARY DISEASE, UNSPECIFIED (7) PUD (peptic ulcer disease) Code(s): K27.9 - PEPTIC ULC, SITE UNSP, UNSP AC OR CHR, W/O HEMOR OR PERF (8) GI (gastrointestinal bleed) Code(s): K92.2 - GASTROINTESTINAL HEMORRHAGE, UNSPECIFIED (9) Diabetes mellitus Code(s): E11.9 - TYPE 2 DIABETES MELLITUS WITHOUT COMPLICATIONS (10) Bladder cancer Code(s): C67.9 - MALIGNANT NEOPLASM OF BLADDER, UNSPECIFIED (11) Agitation Assessment/Plan: Pt is removing oxygen NC/ mask, removing heart monitor. It requires hand restrain To request psychiatry consult Code(s): R45.1 - RESTLESSNESS AND AGITATION Assessment/Plan Admitted to Telemetry; to f/u with Cardio. I called and talked with both daughters (HCPs), reviewed pt's condition, including poor PO intake of food and fluids; daughter ,Vilma, states that her father eat well yesterday when family fed him; I encourage to call nursing service director and nurse when family is feeding patient. I made them aware of Oncologist specialist opinion, patient's poor prognosis. Prognosis: poor. Pt is DNR. Psychiatry consult. DC planning to NH, both daughter agreed. AM labs. Pt's condition was reviewed with pt's nurse
--- NOTE | 2019-08-06 19:34 | CON.PSY ---
Psychiatry Consult Chief Complaint: 88 Maranda old male with Dementia and Ca seen for Psych evaluation for Un Cooperative behaviour. Patient has been pulling out amsk for oxygen and being uncopertaive with care, Case discussed with Dr. Junior. Symptoms: reports: Aggressivity, Impulsivity - Previous Psychiatric Treatment Outpatient: None Inpatient: None - Previous Substance Abuse Treatment Outpatient: None Inpatient: None - Current Medications Current Medications: Active Medications Albuterol/Ipratropium (Duoneb -) 1 amp NEB Q6H PRN PRN Reason: SHORTNESS OF BREATH Last Admin: 08/05/19 20:14 Dose: 1 amp Aspirin (Ecotrin -) 81 mg PO DAILY [facility] Last Admin: 08/06/19 11:23 Dose: 81 mg Cefuroxime Axetil (Ceftin -) 250 mg PO BID [facility] Last Admin: 08/06/19 11:23 Dose: 250 mg Sodium Chloride (Normal Saline -) 1,000 mls @ 42 mls/hr IV ASDIR [facility] Last Admin: 08/06/19 05:29 Dose: 42 mls/hr Insulin Aspart (Novolog Vial Sliding Scale -) 1 vial SQ BIDAC [facility]; Protocol Last Admin: 08/06/19 17:06 Dose: Not Given Lorazepam (Ativan -) 0.5 mg PO BID PRN PRN Reason: ANXIETY Last Admin: 08/06/19 05:29 Dose: 0.5 mg - Allergies Allergies: Allergies Allergy/AdvReac Type Severity Reaction Status Date / Time No Known Allergies Allergy Verified 05/29/18 15:33 - Current Living Status Usual Living Arrangement: Skilled Nursing - Current Mental Status Evaluation Appearance: Disheveled Attitude: Guarded - Affect Appropriateness: Not Appropriate - Mood Mood: Irritable - Speech/Language Expressive: Delayed - Psychomotor Activity Psychomotor Activity: Hyperactive - Thought Process Thought Process: Circumstantial - Thought Content Hallucinations: Absent Delusions: Absent - Self Perception Self Perception: Depersonalization - Cognition Attention: Diminished Orientation: Time Memory, Immediate Recall: Impaired Memory, Short Term: 1/3 Memory, Remote with Promptin/3 - Concentration Serial Sevens Intact: No Simple Calculations Intact: No - Abstraction Proverb Interpretation: Garrett Judgement: Minimally Impaired - Insight Insight: Impaired - Impulse Control Impulse Control: Moderately Impaired - Suicidal Ideation Suicidal Ideation: No - Homicidal Ideation Homicidal Ideation: No Assessment/Plan 1) zyprexa 5mg po hs for agitation and poor appetite.
[2019-08-06] MEDS: ALBUTEROL SO4 2.5/IPRATROPIUM 0.5 INH SOL 3 ML VIAL.NEB. NEB PRN (19:35)
[2019-08-06] MEDS: OLANZapine 5 MG TABLET PO SCH (21:41)
[2019-08-07] MEDS: SODIUM CHLORIDE 1,000 ML IV SCH ×2 (01:13→06:40)
[2019-08-07] MEDS: INSULIN SLIDING SCALE (NOVOLOG) 1 VIAL SQ SCH ×2 (06:41→18:12)
[2019-08-07] MEDS ORDERED: PT OWN MED DRAWER 7, Y5N ONE (10:56)
[2019-08-07] MEDS: ASPIRIN COATED 81 MG TABLET.EC PO SCH (11:33)
[2019-08-07] MEDS: CEFUROXIME AXETIL 250 MG TABLET PO SCH ×2 (11:33→21:46)
--- NOTE | 2019-08-07 13:26 | PN ---
Progress Note (short form) - Note Progress Note: 88 year with lethargy , male admitted, weakness, incontinent of bodily function and workup suggesting metastatic disease. Known case of CAD/andina, O2 dependent COPD, tobacco abuse No significant change in clinical status. Periods of agitation. Spoke to daughter and is to transfered to a SNF. ALLERGIES: None documented. Active Medications Albuterol/Ipratropium (Duoneb -) 1 amp NEB Q6H PRN PRN Reason: SHORTNESS OF BREATH Last Admin: 08/06/19 19:35 Dose: 1 amp Aspirin (Ecotrin -) 81 mg PO DAILY [facility] Last Admin: 08/07/19 11:33 Dose: 81 mg Cefuroxime Axetil (Ceftin -) 250 mg PO BID [facility] Last Admin: 08/07/19 11:33 Dose: 250 mg Sodium Chloride (Normal Saline -) 1,000 mls @ 42 mls/hr IV ASDIR [facility] Last Admin: 08/07/19 06:40 Dose: 42 mls/hr Insulin Aspart (Novolog Vial Sliding Scale -) 1 vial SQ BIDAC [facility]; Protocol Last Admin: 08/07/19 06:41 Dose: Not Given Lorazepam (Ativan -) 0.5 mg PO BID PRN PRN Reason: ANXIETY Last Admin: 08/06/19 21:41 Dose: 0.5 mg Olanzapine (Zyprexa -) 5 mg PO HS [facility] Last Admin: 08/06/19 21:41 Dose: 5 mg PHYSICAL EXAMINATION: General: 88-year-old gentleman was in no acute distress. No pallor was appreciated. No clubbing or jaundice. Last Vital Signs Temp Pulse Resp BP Pulse Ox 97.6 F 101 H 18 135/59 L 94 L 08/07/19 10:05 08/07/19 10:05 08/07/19 10:05 08/07/19 10:05 08/07/19 09:00 Neck: Supple. No jugular venous distention. Hepatojugular reflux was negative. Carotids were 2+. Upstrokes were normal. No bruits were heard, and no thyromegaly was present. Heart: PMI was in the fifth intercostal space. Heart sounds were distant. Unable to appreciate murmurs, gallops or rubs. Lungs: Decreased breath sounds bilaterally, fine crepitations at the left base. Abdomen: Soft and nontender. Liver is 4 to 5 fingerbreadth below the right intercostal margin, is probable nodular and is nontender. No splenomegaly is appreciated. Well-healed midline abdominal scar. No masses were felt. Extremities: No calf tenderness or dependent edema. Femoral pulses were 2+. Dorsalis pedis and posterior tibial pulses were not palpable. Chest x-ray Dated: 08/01/19 Impression: Interval atelectatic changes and probable infiltrates in the left lung base. CTA Chest: Dated: 08/01/19 Impression: See discussion above. There is no gross evidence of a pulmonary embolus in the main pulmonary artery and its proximal branches, bilaterally. Severe COPD changes again seen. Interval increase in size of previously visualized pleural-based nodule/mass in the medial aspect of the right lower lobe now measuring 2.5 x 1.3 cm. Interval multiple low-attenuation densities in included portion of the liver with the largest measuring 7.5 cm that are highly suspicious for metastasis. Heterogeneous attenuation and enhancement of the spleen that may be due to rapid intravenous contrast administration. However, metastatic lesions cannot be excluded. LAB DATA: CBC, BMP 08/04/19 05:45 08/04/19 05:45 IMPRESSION: 1. Athrosclerotic heart disease/angina pectoris, suspect acute coronary syndrome. 2. Abnormal liver function tests, hepatomegaly, and abdominal CT is highly suspicious for metastatic disease. 3. Oxygen dependent COPD/chronic bronchitis. 4. Lethargy and mental confusion etiology to be determined. 5. Dehydration, corrected. 6. 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 7. History of dementia. 9. Tobacco abuse. RECOMMENDATION: 1. Consider resuming his cardiac medications. 2. Supportive care. IAN ARORA M.D.
--- NOTE | 2019-08-07 13:37 | PN ---
Progress Note, Physician History of Present Illness: Pt w/o CP, palpitations, abd pain, back pain, legs pain, arms pain. Pt with SOB without oxygen mask. When I asked him about eating stated that eats a little as has low appetite - Current Medication List Current Medications: Active Medications Albuterol/Ipratropium (Duoneb -) 1 amp NEB Q6H PRN PRN Reason: SHORTNESS OF BREATH Last Admin: 08/06/19 19:35 Dose: 1 amp Aspirin (Ecotrin -) 81 mg PO DAILY [facility] Last Admin: 08/07/19 11:33 Dose: 81 mg Cefuroxime Axetil (Ceftin -) 250 mg PO BID [facility] Last Admin: 08/07/19 11:33 Dose: 250 mg Sodium Chloride (Normal Saline -) 1,000 mls @ 42 mls/hr IV ASDIR [facility] Last Admin: 08/07/19 06:40 Dose: 42 mls/hr Insulin Aspart (Novolog Vial Sliding Scale -) 1 vial SQ BIDAC [facility]; Protocol Last Admin: 08/07/19 06:41 Dose: Not Given Lorazepam (Ativan -) 0.5 mg PO BID PRN PRN Reason: ANXIETY Last Admin: 08/06/19 21:41 Dose: 0.5 mg Olanzapine (Zyprexa -) 5 mg PO HS [facility] Last Admin: 08/06/19 21:41 Dose: 5 mg - Objective Vital Signs: Vital Signs Temperature 97.6 F 08/07/19 10:05 Pulse Rate 101 H 08/07/19 10:05 Respiratory Rate 18 08/07/19 10:05 Blood Pressure 135/59 L 08/07/19 10:05 O2 Sat by Pulse Oximetry (%) 94 L 08/07/19 09:00 Constitutional: Yes: No Distress, Calm Cardiovascular: Yes: Regular Rate and Rhythm, S1, S2 Respiratory: Yes: Regular Gastrointestinal: Yes: Normal Bowel Sounds, Soft, Tenderness Edema: No Neurological: Yes: Alert, Oriented Labs: CBC, BMP 08/04/19 05:45 08/04/19 05:45 INR, PTT INR 1.03 (0.83-1.09) 08/01/19 16:16 Problem List - Problems (1) Cardiac enzymes elevated Code(s): R74.8 - ABNORMAL LEVELS OF OTHER SERUM ENZYMES (2) Failure to thrive in adult Code(s): R62.7 - ADULT FAILURE TO THRIVE (3) Liver metastasis Code(s): C78.7 - SECONDARY MALIG NEOPLASM OF LIVER AND INTRAHEPATIC BILE DUCT (4) CAD (coronary artery disease) Code(s): I25.10 - ATHSCL HEART DISEASE OF [place] CORONARY ARTERY W/O ANG PCTRS (5) UTI (urinary tract infection) Code(s): N39.0 - URINARY TRACT INFECTION, SITE NOT SPECIFIED Qualifiers: Urinary tract infection type: site unspecified Hematuria presence: without hematuria Qualified Code(s): N39.0 - Urinary tract infection, site not specified (6) COPD (chronic obstructive pulmonary disease) Code(s): J44.9 - CHRONIC OBSTRUCTIVE PULMONARY DISEASE, UNSPECIFIED (7) PUD (peptic ulcer disease) Code(s): K27.9 - PEPTIC ULC, SITE UNSP, UNSP AC OR CHR, W/O HEMOR OR PERF (8) GI (gastrointestinal bleed) Code(s): K92.2 - GASTROINTESTINAL HEMORRHAGE, UNSPECIFIED (9) Diabetes mellitus Code(s): E11.9 - TYPE 2 DIABETES MELLITUS WITHOUT COMPLICATIONS (10) Bladder cancer Code(s): C67.9 - MALIGNANT NEOPLASM OF BLADDER, UNSPECIFIED (11) Agitation Code(s): R45.1 - RESTLESSNESS AND AGITATION Assessment/Plan Admitted to Telemetry; to f/u with Cardio. Cardio, ID consults are appreciated. Today pt is at his best (he can provide answers to questions, is relaxed, is not SOB) since his admission. I spoke with his daughter, Lizette; she states that he eat a little today and that lately he eats just a little. I updated her about pt's condition and treatment. She knows that her father has advanced cancer and cannot tolerate chemotherapy treatment. She asked if [facility] provides comfort care, and was reassured abut it. Again I expressed my concern about patient low PO intake. Pt is DNR. Psychiatry consult is appreciated. DC planning to [place], both daughter agreed. Pt's condition was reviewed with pt's nurse
[2019-08-07] MEDS: NICOTINE 21 MG/24 HOURS TOPICAL PATCH TD SCH (14:31)
[2019-08-07] MEDS: OLANZapine 5 MG TABLET PO SCH (21:46)
[2019-08-08] MEDS: SODIUM CHLORIDE 1,000 ML IV SCH ×2 (01:12→06:46)
[2019-08-08] MEDS: LORazepam 0.5 MG TABLET PO PRN (01:12)
[2019-08-08] MEDS: INSULIN SLIDING SCALE (NOVOLOG) 1 VIAL SQ SCH (07:17)
[2019-08-08] MEDS ORDERED: PT OWN MED DRAWER 7, Y5N ONE (09:01)
[2019-08-08 09:29] VITALS: BP 111/54; PULSE 104; TEMP 98.1
[2019-08-08] MEDS: CEFUROXIME AXETIL 250 MG TABLET PO SCH (09:29)
[2019-08-08] MEDS: NICOTINE 21 MG/24 HOURS TOPICAL PATCH TD SCH (09:30)
[2019-08-08] MEDS: ASPIRIN COATED 81 MG TABLET.EC PO SCH (09:30)
--- NOTE | 2019-08-08 10:46 | PN ---
Progress Note (short form) - Note Progress Note: 88 year with lethargy , male admitted, weakness, incontinent of bodily function and workup suggesting metastatic disease. Known case of CAD/andina, O2 dependent COPD, tobacco abuse No significant change in clinical status. Is confused and appears comfortable. ALLERGIES: None documented. Active Medications Generic Name Dose Route Start Last Admin Trade Name Freq PRN Reason Stop Dose Admin Albuterol/Ipratropium 1 amp 08/05/19 11:21 08/06/19 19:35 Duoneb - NEB 1 amp Q6H PRN Administration SHORTNESS OF BREATH Aspirin 81 mg 08/02/19 10:00 08/08/19 09:30 Ecotrin - PO 81 mg DAILY [facility] Administration Cefuroxime Axetil 250 mg 08/05/19 11:00 08/08/19 09:29 Ceftin - PO 250 mg BID [facility] Administration Sodium Chloride 1,000 mls @ 42 mls/hr 08/02/19 00:45 08/08/19 06:46 Normal Saline - IV 42 mls/hr ASDIR [facility] Administration Insulin Aspart 1 vial 08/02/19 07:00 08/08/19 07:17 Novolog Vial Sliding Scale - SQ Not Given BIDAC [facility] Protocol Lorazepam 0.5 mg 08/02/19 22:27 08/08/19 01:12 Ativan - PO 0.5 mg BID PRN Administration ANXIETY Nicotine 21 mg 08/07/19 13:45 08/08/19 09:30 Nicoderm Patch - TD 21 mg DAILY [facility] Administration Olanzapine 5 mg 08/06/19 22:00 08/07/19 21:46 Zyprexa - PO 5 mg HS [facility] Administration PHYSICAL EXAMINATION: General: 88-year-old gentleman in no distress. No pallor was appreciated. No clubbing or jaundice. Last Vital Signs Temp Pulse Resp BP Pulse Ox 98.1 F 104 H 19 111/54 L 96 08/08/19 09:28 08/08/19 09:28 08/08/19 09:28 08/08/19 09:28 08/07/19 21:00 Neck: Supple. No jugular venous distention. -ve HJR.Carotids were 2+. Upstrokes were normal. No bruits were heard, no thyromegaly was present. Heart: PMI was in the fifth intercostal space. Heart sounds were distant. Unable to appreciate murmurs, gallops or rubs. Lungs: Decreased breath sounds bilaterally, fine crepitations at the left base. Abdomen: Soft and nontender. Liver is 4 to 5 fingerbreadth below the right intercostal margin, is probable nodular and is nontender. No splenomegaly is appreciated. Well-healed midline abdominal scar. No masses were felt. Extremities: No calf tenderness or dependent edema. Femoral pulses were 2+. Dorsalis pedis and posterior tibial pulses were not palpable. CTA Chest: Dated: 08/01/19 Impression: See discussion above. There is no gross evidence of a pulmonary embolus in the main pulmonary artery and its proximal branches, bilaterally. Severe COPD changes again seen. Interval increase in size of previously visualized pleural-based nodule/mass in the medial aspect of the right lower lobe now measuring 2.5 x 1.3 cm. Interval multiple low-attenuation densities in included portion of the liver with the largest measuring 7.5 cm that are highly suspicious for metastasis. Heterogeneous attenuation and enhancement of the spleen that may be due to rapid intravenous contrast administration. However, metastatic lesions cannot be excluded. LAB DATA: CBC, BMP 08/04/19 05:45 08/04/19 05:45 IMPRESSION: 1. Athrosclerotic heart disease/angina pectoris, suspect acute coronary syndrome. 2. Abnormal liver function tests, hepatomegaly, and abdominal CT is highly suspicious for metastatic disease. 3. Oxygen dependent COPD/chronic bronchitis. 4. Lethargy and mental confusion etiology to be determined. 5. Dehydration, corrected. 6. 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 7. History of dementia. 9. Tobacco abuse. RECOMMENDATION: 1. Consider resuming his previous cardiac and pulmonary medications. 2. Supportive care. IAN ARORA M.D.
--- NOTE | 2019-08-08 11:13 | DS ---
Physical Examination Vital Signs: Vital Signs Temperature 98.1 F 08/08/19 09:28 Pulse Rate 104 H 08/08/19 09:28 Respiratory Rate 19 08/08/19 09:28 Blood Pressure 111/54 L 08/08/19 09:28 O2 Sat by Pulse Oximetry (%) 96 08/07/19 21:00 Findings/Remarks: 88yo M with PMH of COPD (not on home O2), HTN, DM, asthma, metastatic bladder CA , lung and liver masses, h/o long heavy tobacco use, advanced dementia, advanced COPD, history of respiratory arrest, admitted for failure to thrive; found to have tachycardia, low grade fever r/o PNA - treated with antibiotics per ID with some improvement; general weakness, weight loss, needs constant care ; to go to SNF for PT then further planning depending on his course Constitutional: Yes: No Distress, Calm Eyes: Yes: Conjunctiva Clear HENT: Yes: Atraumatic Neck: Yes: Supple Cardiovascular: Yes: Regular Rate and Rhythm Respiratory: Yes: CTA Bilaterally Gastrointestinal: Yes: Soft. No: Tenderness Renal/: No: Hematuria Musculoskeletal: No: Joint Stiffness, Joint Swelling Extremities: No: Cold, Cool Edema: No Integumentary: No: Rash, Venous Stasis Changes Neurological: Yes: WNL, Alert ...Motor Strength: WNL Psychiatric: Yes: WNL, Alert. No: Agitated, Suicidal Ideation Labs: CBC, BMP 08/04/19 05:45 08/04/19 05:45 Discharge Summary Problems reviewed: Yes Reason For Visit: UTI/FAILURE TO THRIVE/ELEVATED TROPONIN LEVEL Current Active Problems Agitation (Acute) Bladder cancer (Acute) Bowel dysfunction (Acute) Cardiac enzymes elevated (Acute) Diabetes mellitus (Acute) Failure to thrive in adult (Acute) Liver metastasis (Acute) UTI (urinary tract infection) (Acute) Procedures: Principal: admitted with failure to thrive tx with IVF IV ATB improved slighlty Other Procedures: seen by pulmonary, ID, cardiology and ONC; given his advanced dementia and poor functional status ONC recommended hospice care / comfort care ; daughter signed DNR (not DNI) Hospital Course: improved slightly with the above tx; to go to SNF for potential rehab then further plan to be decided depending on his progress in SNF; turn in bed for decubs pfx; falls,aspiration, DVT PFx; prognosis poor. Family aware. Condition: Guarded - Instructions Disposition: SNF FACILITY - Home Medications Comprehensive Discharge Medication List: Ambulatory Orders Unobtainable 08/02/19
== END 2019-08-08 17:52 | DRG 435 ==
LOC: JER 14:35 → JERBED 18:49 → JICU 08-02 03:57 → J4S 08-02 18:35
PROVIDERS: ADMIT Specialist; ATTEND Specialist
DX: C78.7 Secondary malignant neoplasm of liver and intrahepatic bile duct (principal); E43 Unspecified severe protein-calorie malnutrition; N39.0 Urinary tract infection, site not specified; R64 Cachexia; Z68.1 Body mass index [BMI] 19.9 or less, adult; J98.11 Atelectasis; R62.7 Adult failure to thrive; E86.0 Dehydration; C67.9 Malignant neoplasm of bladder, unspecified; J44.9 Chronic obstructive pulmonary disease, unspecified; I10 Essential (primary) hypertension; J45.909 Unspecified asthma, uncomplicated; F17.210 Nicotine dependence, cigarettes, uncomplicated; I45.10 Unspecified right bundle-branch block; E78.5 Hyperlipidemia, unspecified; K59.09 Other constipation; E11.51 Type 2 diabetes mellitus with diabetic peripheral angiopathy without gangrene; R74.8 Abnormal levels of other serum enzymes; I25.119 Atherosclerotic heart disease of native coronary artery with unspecified angina pectoris; R00.0 Tachycardia, unspecified; R91.1 Solitary pulmonary nodule; Z66 Do not resuscitate; R45.1 Restlessness and agitation; Z85.46 Personal history of malignant neoplasm of prostate; Z85.51 Personal history of malignant neoplasm of bladder; Z87.11 Personal history of peptic ulcer disease
CPT/HCPCS: 36415; 70450-TC; 71045-TC-FY; 71275-TC; 76775-TC; 80053; 81003; 82550; 82553; 82962; 83690; 83880; 84484; 85025; 85027; 85610; 87040; 87070; 87086; 87205; 87899; 93005; 93010; 94640; 97116-GP; 97162-GP; 99284-25; J7030